=== PATIENT | female | born 1990 | race Caucasian/White ===

== ENCOUNTER → 2016-12-24 | Outpatient (CLI) | payer BC ==
[~2016-12-24] MED LIST: APRI28 PO; CLR10 PO; MONT1TAB3 PO
== END | disposition home or self-care (01) ==
LOC: C.PAPS 09:18
PROVIDERS: ATTEND Obstetrics & Gynecology
DX: Z01.419 Encounter for gynecological examination (general) (routine) without abnormal findings (principal)

== ENCOUNTER 2019-05-12 16:41 | Observation (INO) ==
[2019-05-12 19:54] LABS: Basophils # (auto) 0.02 K/uL (0-0.2); Basophils % (auto) 0.2 %; Eosinophils # (auto) 0.16 K/uL (0-0.5); Eosinophils % (auto) 1.5 %; Hematocrit (blood only) 43.5 % (37-47); Hemoglobin 14.5 g/dL (12.0-16.0); Immature Granulocytes # (auto) 0.01 K/uL (0.00-0.02); Immature Granulocytes % (auto) 0.1 %; Lymphocytes # (auto) 3.14 K/uL (1.2-3.4); Lymphocytes % (auto) 28.6 %; Mean Corpuscular Hemoglobin 26.7 pg (25-34); Mean Corpuscular Hgb Conc 33.3 g/dL (32-36); Mean Corpuscular Volume 80.1 fL (80-100); Mean Platelet Volume 9.9 fL (7.4-10.4); Monocytes # (auto) 0.52 K/uL (0.11-0.59); Monocytes % (auto) 4.7 %; Neutrophils # (auto) 7.14 K/uL (1.4-6.5); Neutrophils % (auto) 64.9 %; Platelet Count 409 K/uL (130-400); RDW Coefficient of Variation 13.9 % (11.5-14.5); RDW Standard Deviation 40.4 fL (36.4-46.3); Red Blood Count 5.43 M/uL (4.2-5.4); White Blood Count 10.99 K/uL (4.8-10.8)
[2019-05-12 20:11] LABS: Alanine Aminotransferase 24 U/L (12-78); Albumin Level 3.4 gm/dl (3.4-5.0); Aspartate Aminotransferase 16 U/L (15-37); BUN Creatinine Ratio 12.3 (10-20); Blood Urea Nitrogen 10 mg/dl (7-18); Calcium 9.8 mg/dl (8.5-10.1); Carbon Dioxide 21 mmol/L (21-32); Chloride 108 mmol/L (98-107); Creatinine Clr Calc Pharmacy 149.5 ml/min; Est GFR (African American) 122.6; Est GFR (Non-African American) 105.8; Glucose 91 mg/dl (70-99); Partial Thromboplastin Ratio 0.9; Partial Thromboplastin Time 25.6 Seconds (21.0-31.0); Potassium 3.6 mmol/L (3.5-5.1); Prothrombin Time 9.8 Seconds (9.0-12.0); Sodium 138 mmol/L (136-145)
[2019-05-12 20:16] LABS: Albumin Globulin Ratio 0.8 (0.9-2); Alkaline Phosphatase 78 U/L (45-117); Bilirubin,Total 0.3 mg/dl (0.2-1); Globulin 4.5 gm/dl (2.5-4.0); Total Protein 7.9 gm/dl (6.4-8.2); Troponin I < 0.015 ng/ml (0-0.045)
[2019-05-12] MEDS ORDERED: OPTIRAY 320 125ml IV PRN (20:34)
--- NOTE | 2019-05-12 20:45 | CT Scan Report ---
CT angio chest PE protocol CT DOSE: 727.62 mGy.cm HISTORY: Chest pain. Dyspnea. Chest Pain, eval for PE TECHNIQUE: Multiaxial CT images of the chest were performed following the intravenous administration of contrast to evaluate the pulmonary arteries. Maximal intensity projection images were also obtaine d. A dose lowering technique was utilized adhering to the principles of ALARA. COMPARISON STUDY: 06/13/2015 FINDINGS: Evidence for pneumomediastinum and pneumopericardium. Small amount of air surrounding the t horacic esophagus. Pulmonary vasculature enhances appropriately. No evidence for pneumothorax or focal infiltrative cadena ge. A moderate amount of air extends to the low cervical region. Pulmonary vasculature enhances appropriately. No significant filling defects. Several calcified granulomas are present. No focal infiltrative process. IMPRESSION: 1. Findings consistent with pneumomediastinum as well as pneumopericardium. 2. Small amount of air surrounding the thoracic esophagus. 3. Lungs are considered clear. 4. No evidence for pulmonary embolus. ACT 112: Negative or not required by law. The above report was generated using voice recognition software. It may contain grammatical, syntax or spelling errors. Electronically signed by: Parker Shine M.D. 05/12/2019 8:44 PM
[2019-05-12] MEDS ORDERED: ONDANSETRON INJ 2 MG/ML 2 ML VIAL IV STA (21:20)
[2019-05-12] MEDS ORDERED: MoRPHine SULFATE 4 MG/ML 1 ML CARP\\VIAL IV STA (21:20)
--- NOTE | 2019-05-12 22:15 | CT Scan Report ---
CT chest wo con CT DOSE: 727.29 mGy.cm HISTORY: Chest pain esophageal tear. Dyspnea. TECHNIQUE: Multiaxial CT images of the chest were performed without contrast. Oral contrast was utili zed. A dose lowering technique was utilized adhering to the principles of ALARA. COMPARISON: CT angiogram of the chest for pulmonary embolus same date FINDINGS: Lungs remain generally clear. Findings of pneumopericardium, pneumomediastinum, air within the paraesophageal region as well as soft tissues of the lower cervical region remains unchanged. The esophagus is now opacified with oral contrast. Transaxial image 277 suggest the possibility of a small anterior tear of the distal esophagus immedia tely proximal to the gastroesophageal junction. Contrast does not form a significant collection surro unding the esophagus or within the pulmonary regions. The remainder of the esophagus appears generall y intact. Calcified left perihilar and left paramediastinal lymph nodes are noted. Calcified mid mediastinal no sanjuanita are unchanged. No additional area of potential wall penetration is present. The low soft tissue cervical region suggests a potential trace amount of contrast within the hypophar ynx on the right which is most likely secondary to a trace amount of leakage and/or trace amount of a spiration. No abnormal contrast collections are identified within the soft tissue neck or superior to mid medias tinal regions. All major structures of the mediastinum as well as pulmonary arterial vasculature shandra ins unchanged. IMPRESSION: 1. Repeat CT of the chest with oral contrast was performed. 2. Possible small short segment disruption of the distal anterior esophageal wall immediately superio r to the gastroesophageal junction. Prior to. This potentially represents a small esophageal wall tea r. The contrast appears loculated at this site with no evidence for extension to any surrounding stru cture. 3. No evidence for a significant extraluminal contrast collection or abscess is present. 4. No evidence for contrast extravasation to any additional component of the low soft tissue neck pedro st or lung regions. ACT 112: Negative or not required by law. The above report was generated using voice recognition software. It may contain grammatical, syntax or spelling errors. Electronically signed by: Parker Shine M.D. 05/12/2019 10:14 PM
[2019-05-12] MEDS ORDERED: PIPERACILLIN/TAZOBACTAM 4.5 GM/120 ML BAG IV ONE (22:24)
[2019-05-12] MEDS ORDERED: PIPERACILL/TAZOBAC CONSULT ACTIVE PRN (22:24)
[2019-05-12] MEDS ORDERED: SODIUM CHLORIDE 0.9% 1000ML 1,000 ML IV SCH (22:30)
[2019-05-12] MEDS ORDERED: LACTATED RINGER'S 1,000 ML IV ONE (22:36)
[2019-05-12] MEDS ORDERED: CONSULT PHARMACY STA (22:40)
[2019-05-12] MEDS ORDERED: PANTOprazole 40 MG in SYRINGE 0 ML IV STA (22:50)
--- NOTE | 2019-05-12 23:00 | History & Physical Report ---
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 CT surgery consult RE esophageal tear, pneumomediastinum (ER provider already in touch with Dr. Rivera.) Continue Zosyn IV PPI DVT prophylaxis. SCDs (RE propensity for UGI bleed) Full code Text document was generated using [employer] voice recognition software. It may contain grammatical or spelling errors. Kindly contact undersigned for clarification of any documentation item in question. History of Present Illness Chief Complaint: Chest pain, S OB Primary Care Provider: Parker Cantu MD History obtained from patient, family, and records. Medical history significant for migraine, allergic rhinitis. This morning patient woke up with pleuritic chest pain going to the neck with some shortness of breath. No cough symptoms. Forceful emesis episode about 5 days ago related to migraine episode. Currently without headaches. Patient directed to ER by PCP. Patient received IV Zosyn at the ER for mediastinitis. 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 Allergies Allergy/AdvReac Type Severity Reaction Status Date / Time No Known Allergies Allergy Verified 05/12/19 19:27 Home Medications Home Medications Medication Instructions Recorded Confirmed Type fluticasone propionate 50 1 sprays INTNAS HS 01/08/19 05/12/19 History mcg/actuation nasal spray,suspension loratadine-pseudoephedrine ER 10 1 tab PO HS 01/08/19 05/12/19 History mg-240 mg tablet,extended [id number] rizatriptan 10 mg tablet 10 mg PO DIRECTED PRN 01/08/19 05/12/19 History desogestrel 0.15 mg-ethinyl 1 tab PO DAILY #84 tab 01/15/19 05/12/19 Rx estradiol 0.03 mg tablet montelukast 10 mg PO HS 05/12/19 05/12/19 History Past Med/Surg History Medical History H/O varicella Migraine without aura Surgical History S/P tooth extraction Family History Aunt Breast cancer, Onset Age: 40 maternal Grandmother (Maternal) Breast cancer, Onset Age: 60 Denies family history of Ovarian cancer Colorectal cancer Social History Feels Safe at Home: Yes Smoking Status: Never smoker Hx Alcohol Use: Yes Alcohol Intake Frequency: Rarely Hx Substance Use: No Review of Systems Review of Systems: As per HPI, all 10 systems reviewed, all other ROS negative Physical Exam Physical Exam: GENERAL: Comfortable, pleasant, obese, no respiratory distress SKIN: Normal color, warm HEENT: [place] palpebral conjunctivae, no ptosis, dry buccal mucosa NECK : Supple, short neck, no tenderness CHEST : CTA, no tenderness HEART : Tachycardic, no obvious murmurs ABDOMEN: Some distention, nontender EXTREMITIES : Minimal LE swelling, no LE tenderness, no other conspicuous deformities noted NEUROLOGIC : Coherent, no facial asymmetry, no other gross focality Results & Data Vital Signs (Past 12 Hours) Vital Signs Temp Pulse Pulse Resp BP BP Pulse Ox 05/12/19 21:35 113 H 18 133/80 98 05/12/19 19:38 108 H 24 97 05/12/19 19:37 110 H 19 128/77 95 05/12/19 19:36 110 H 110 H 18 128/77 96 05/12/19 17:35 36.8 C 117 H 22 141/87 H 100 Laboratory Results Laboratory Results WBC 10.99 K/uL (4.8-10.8) H 05/12/19 19:25 RBC 5.43 M/uL (4.2-5.4) H 05/12/19 19:25 Hgb 14.5 g/dL (12.0-16.0) 05/12/19 19:25 Hct 43.5 % (37-47) 05/12/19 19:25 MCV 80.1 fL (80-100) 05/12/19 19:25 MCH 26.7 pg (25-34) 05/12/19 19:25 MCHC 33.3 g/dL (32-36) 05/12/19 19:25 RDW Std Deviation 40.4 fL (36.4-46.3) 05/12/19 19:25 RDW Coeff of [place] 13.9 % (11.5-14.5) 05/12/19 19: Plt Count 409 K/uL (130-400) H 05/12/19 19:25 MPV 9.9 fL (7.4-10.4) 05/12/19 19:25 Immature Gran % (Auto) 0.1 % 05/12/19 19:25 Neut % (Auto) 64.9 % 05/12/19 19:25 Lymph % (Auto) 28.6 % 05/12/19 19:25 [place] % (Auto) 4.7 % 05/12/19 19: Eos % (Auto) 1.5 % 05/12/19: Baso % (Auto) 0.2 % 05/12/19 19: Immature Gran # (Auto) 0.01 K/uL (0.00-0.02) 05/12/19 19: Neut # (Auto) 7.14 K/uL (1.4-6.5) H 05/12/19 19:25 Lymph # (Auto) 3.14 K/uL (1.2-3.4) 05/12/19 19:25 [place] # (Auto) 0.52 K/uL (0.11-0.59) 05/12/19 19: Eos # (Auto) 0.16 K/uL (0-0.5) 05/12/19 19: Baso # (Auto) 0.02 K/uL (0-0.2) 05/12/19 19:25 PT 9.8 Seconds (9.0-12.0) 05/12/19 19:25 INR 1.0 (0.9-1.1) 05/12/19 19:25 APTT 25.6 Seconds (21.0-31.0) 05/12/19 19: PTT Ratio 0.9 05/12/19 19:25 Sodium 138 mmol/L (136-145) 05/12/19 19:25 Potassium 3.6 mmol/L (3.5-5.1) 05/12/19 19:25 Chloride 108 mmol/L (98-107) H 05/12/19 19:25 Carbon Dioxide 21 mmol/L (21-32) 05/12/19 19:25 Anion Gap 9.0 (3-11) 05/12/19 19:25 BUN 10 mg/dl (7-18) 05/12/19 19:25 Creatinine 0.77 mg/dl (0.6-1.2) 05/12/19 19:25 Est Cr Clr Drug Dosing 149.5 ml/min 05/12/19 19:25 Est GFR ( Amer) 122.6 05/12/19 19:25 Est GFR (Non-Af Amer) 105.8 05/12/19 19:25 BUN/Creatinine Ratio 12.3 (10-20) 05/12/19 19:25 Glucose 91 mg/dl (70-99) 05/12/19 19:25 Calcium 9.8 mg/dl (8.5-10.1) 05/12/19 19:25 Total Bilirubin 0.3 mg/dl (0.2-1) 05/12/19 19:25 AST 16 U/L (15-37) 05/12/19 19:25 ALT 24 U/L (12-78) 05/12/19 19:25 Alkaline Phosphatase 78 U/L (45-117) 05/12/19 19:25 Troponin I < 0.015 ng/ml (0-0.045) 05/12/19 19:25 Total Protein 7.9 gm/dl (6.4-8.2) 05/12/19 19:25 Albumin 3.4 gm/dl (3.4-5.0) 05/12/19 19:25 Globulin 4.5 gm/dl (2.5-4.0) H 05/12/19 19:25 Albumin/Globulin Ratio 0.8 (0.9-2) L 05/12/19 19:25 POC Ur Test NEG (NEG) 05/12/19 19:20 Diagnostic Findings Chest CTA: 1. Findings consistent with pneumomediastinum as well as pneumopericardium. 2. Small amount of air surrounding the thoracic esophagus. 3. Lungs are considered clear. 4. No evidence for pulmonary embolus. CT chest with oral contrast 1. Repeat CT of the chest with oral contrast was performed. 2. Possible small short segment disruption of the distal anterior esophageal wall immediately superior to the gastroesophageal junction. Prior to. This potentially represents a small esophageal wall tear. The contrast appears loculated at this site with no evidence for extension to any surrounding structure. 3. No evidence for a significant extraluminal contrast collection or abscess is present. 4. No evidence for contrast extravasation to any additional component of the low soft tissue neck chest or lung regions. EKG as per my interpretation rate 115, sinus tachycardia, normal axis, no ischemia
--- NOTE | 2019-05-12 23:48 | Emergency Department Note ---
Entered by Andrea Solares acting as a scribe for History of Present Illness General Chief complaint: Chest Pain Stated complaint: WORSENING CHEST & NECK PAIN Time Seen by Provider: 05/12/19 18:56 Source: patient History of Present Illness Onset (ago): hour(s) 10 Location: chest Pain Consistency: + other (worsening) Maximum Pain Intensity: 9 Quality: + sharp Exacerbated By: + movement Associated symptoms: + denies other symptoms (trouble urinating); no cough and no fever/chills The patient is a 28 y/o female who presents to the ED w/ CC of worsening, sharp, chest pain beginning 10 hours ago. The patient states here symptoms suddenly started this morning. She reports she was evaluated by her PCP this morning for piercing chest pain only present when she coughed or breathed deeply. The patient notes throughout the day, her symptoms worsened, and now her symptoms are more persistent. The patient reports her symptoms worsen with movement. She denies shortness of breath, back pain, leg swelling, leg pain, recent long trips, a history of clots in legs or lungs, fevers, cough, chills, and trouble urinating. She does state it is worse when she tries to take a deep breath. The patient is sexually active and denies the chance of . She did have a migraine 4 days ago and did have vomiting at that time. She does not smoke. Home Medications Home Medications Medication Instructions Recorded Confirmed Type fluticasone propionate 50 1 sprays INTNAS HS 01/08/19 05/12/19 History mcg/actuation nasal spray,suspension loratadine-pseudoephedrine ER 10 1 tab PO HS 01/08/19 05/12/19 History mg-240 mg tablet,extended [id number] rizatriptan 10 mg tablet 10 mg PO DIRECTED PRN 01/08/19 05/12/19 History desogestrel 0.15 mg-ethinyl 1 tab PO DAILY #84 tab 01/15/19 05/12/19 Rx estradiol 0.03 mg tablet montelukast 10 mg PO HS 05/12/19 05/12/19 History Allergies Allergy/AdvReac Type Severity Reaction Status Date / Time No Known Allergies Allergy Verified 05/12/19 19:27 Past Med/Surg History Medical History H/O varicella Migraine without aura Surgical History S/P tooth extraction Family History Aunt Breast cancer, Onset Age: 40 maternal Grandmother (Maternal) Breast cancer, Onset Age: 60 Denies family history of Ovarian cancer Colorectal cancer Social History Feels Safe at Home: Yes Smoking Status: Never smoker Hx Alcohol Use: Yes Alcohol Intake Frequency: Rarely Hx Substance Use: No Review of Systems See HPI for pertinent positives & negatives. and A total of 10 systems reviewed and were otherwise negative Physical Exam Vital Signs Vital Signs - 24 hr 05/12/19 17:35 05/12/19 19:36 05/12/19 19:37 Temperature 36.8 C Temperature Source Oral Pulse Rate 117 H 110 H 110 H Pulse Rate [Left Finger] 110 H Pulse Rate from SpO2 Sensor 109 H Pulse Rhythm Regular Pulse Rhythm [Left Finger] Regular Pulse Strength [Left Finger] Normal Respiratory Rate 22 18 19 Respiratory Effort / Characteristics Non-Labored Respiratory Depth Normal Respiratory Pattern Regular Blood Pressure 141/87 H 128/77 Blood Pressure [Right Arm] 128/77 Blood Pressure Mean 105 99 Blood Pressure Mean [Right Arm] 94 Blood Pressure Position Sitting Blood Pressure Position [Right Arm] Sitting Pulse Oximetry 100 96 95 Oxygen Delivery Method Room Air Sepsis Recent Fever Within 48 Hours No Sepsis New/Unexplained Change in Mental Status No Sepsis Action Taken by Nursing No Action Required 05/12/19 19:38 05/12/19 20:00 05/12/19 21:35 Temperature Temperature Source Pulse Rate 108 H 106 H 109 H Pulse Rate [Left Finger] 113 H Pulse Rate from SpO2 Sensor 108 H 106 H 112 H Pulse Rhythm Pulse Rhythm [Left Finger] Regular Pulse Strength [Left Finger] Normal Respiratory Rate 24 18 19 Respiratory Effort / Characteristics Non-Labored Spontaneous Respiratory Depth Normal Respiratory Pattern Regular Blood Pressure 123/74 133/80 Blood Pressure [Right Arm] 133/80 Blood Pressure Mean 83 98 Blood Pressure Mean [Right Arm] 97 Blood Pressure Position Blood Pressure Position [Right Arm] Sitting Pulse Oximetry 97 95 99 Oxygen Delivery Method Room Air Room Air Sepsis Recent Fever Within 48 Hours Sepsis New/Unexplained Change in Mental Status Sepsis Action Taken by Nursing 05/12/19 22:00 05/12/19 23:00 Temperature Temperature Source Pulse Rate 120 H 109 H Pulse Rate [Left Finger] Pulse Rate from SpO2 Sensor 119 H 112 H Pulse Rhythm Pulse Rhythm [Left Finger] Pulse Strength [Left Finger] Respiratory Rate 19 18 Respiratory Effort / Characteristics Respiratory Depth Respiratory Pattern Blood Pressure 127/80 113/77 Blood Pressure [Right Arm] Blood Pressure Mean 95 95 Blood Pressure Mean [Right Arm] Blood Pressure Position Blood Pressure Position [Right Arm] Pulse Oximetry 96 92 Oxygen Delivery Method Room Air Sepsis Recent Fever Within 48 Hours Sepsis New/Unexplained Change in Mental Status Sepsis Action Taken by Nursing Constitutional: Vital signs reviewed. Eyes: Pupils are equal round reactive to light. Conjunctiva are noninjected. ENT: Pharynx is clear without erythema or exudate. Mucous membranes are moist. Neck supple without meningeal signs. Respiratory: Clear to auscultation bilaterally. Breath sounds are equal bilaterally. Cardiovascular: Tachycardic rate of 115 with a normal rhythm. No rubs or gallops. GI: Soft, nondistended and nontender. Bowel sounds are present. Musculoskeletal: No peripheral edema. No lower extremity tenderness. Sternal tenderness to palpation. Integumentary: No cyanosis. Neurological: The patient is awake and alert. No focal deficits. Psychiatric: Normal affect. Course Course 1857: The patient was evaluated in room B11B. A complete history and physical exam was performed. 2103: The patient states she had a migraine on Saturday and vomited. She notes other than that she denies a smoking history. 2110: I discussed the patient's case with Dr. Shine, Radiology. He notes there is no evidence of an esophageal tear or leakage. He states if we have serious concern, the patient can drink oral contrast and repeat the CT. 2117: I discussed the patient's case with Dr. Rivera, Thoracic Surgery. He agrees with the decision to repeat the CT with contrast. 2119: The patient is still tachycardic and is agreeable to the CT. She is requesting pain medication and notes her will pick her up if she is di scharged. 3: Dr. Rivera called and notes that if the patient stays, she should be placed on broad spectrum antibiotics and have him on consult to evaluate the patient tomorrow. He notes if she is discharged, she can follow up as an outpatient on . 2218: I spoke with Dr. Rivera. He does not agree with the radiology read. He recommends the patient be brought in under medicine and be kept NPO. He notes the patient should also received broad spectrum antibiotics. He will evaluate patient tomorrow on consult. 3: Upon reevaluation, the patient is resting comfortably. I discussed laboratory and radiographic results with her. She verbalized agreement of the treatment plan. The patient will be evaluated for further management and care. 2231: I reviewed the patient's case with Dr. Sherwood, [facility]. He will evaluate the patient for further management. Administered Medications Ioversol (Optiray 320 125ml) 119 ml IV ONCE PRN PRN Reason: Interaction Checking Stop: 05/16/19 20:33 Last Admin: 05/12/19 20:34 Dose: 119 ml Documented by: [id number] Discontinued Medications Piperacillin Sod/Tazobactam Sod (Zosyn) 4.5 gm in 120 mls @ 240 mls/hr IV NOW ONE Stop: 05/12/19 22:53 Last Admin: 05/12/19 23:27 Dose: 240 mls/hr Documented by: [id number] Pantoprazole Sodium 40 mg/ (Syringe) 10 mls @ 5 mls/min IV NOW STA Stop: 05/12/19 22:51 Last Admin: 05/12/19 23:28 Dose: 5 mls/min Documented by: [id number] Morphine Sulfate (Morphine Sulfate) 4 mg IV NOW STA Stop: 05/12/19 21:21 Last Admin: 05/12/19 21:29 Dose: 4 mg Documented by: [id number] Ondansetron HCl (Zofran) 4 mg IV NOW STA Stop: 05/12/19 21:21 Last Admin: 05/12/19 21:29 Dose: 4 mg Documented by: [id number] Critical Care Time Critical Care Time: Yes Total Critical Care Time: 40 I have personally spent 40 minutes of critical care time in the direct management of this patient. This includes bedside care, interpretation of diagnostic studies, and testing, discussion with consultants, patient, and family members, and other required patient management activities. This 40 minutes is in excess of all separately billable procedures. Medical Decision Making Differential Diagnosis Differential diagnosis includes: pleurisy, PE, pericarditis, pneumothorax, costochondritis. Medical Records Attestation: I reviewed the patient's medical records. I did perform a limited focused review of portions of the patient's old chart on the electronic medical record. The patient has had no recent pertinent visits to this hospital. Home Medications Current Medication List: was personally reviewed by me Laboratory Data Attestation: I reviewed the patient's lab results. Result diagrams: 05/12/19 19:25 05/12/19 19:25 Lab Results 05/12/19 05/12/19 05/12/19 Range/Units 19:20 19:25 19:25 WBC 10.99 H (4.8-10.8) K/uL RBC 5.43 H (4.2-5.4) M/uL Hgb 14.5 (12.0-16.0) g/dL Hct 43.5 (37-47) % MCV 80.1 (80-100) fL MCH 26.7 (25-34) pg MCHC 33.3 (32-36) g/dL RDW Std Deviation 40.4 (36.4-46.3) fL RDW Coeff of [place] 13.9 (11.5-14.5) % Plt Count 409 H (130-400) K/uL MPV 9.9 (7.4-10.4) fL Immature Gran % (Auto) 0.1 % Neut % (Auto) 64.9 % Lymph % (Auto) 28.6 % [place] % (Auto) 4.7 % Eos % (Auto) 1.5 % Baso % (Auto) 0.2 % Immature Gran # (Auto) 0.01 (0.00-0.02) K/uL Neut # (Auto) 7.14 H (1.4-6.5) K/uL Lymph # (Auto) 3.14 (1.2-3.4) K/uL [place] # (Auto) 0.52 (0.11-0.59) K/uL Eos # (Auto) 0.16 (0-0.5) K/uL Baso # (Auto) 0.02 (0-0.2) K/uL PT 9.8 (9.0-12.0) Seconds INR 1.0 (0.9-1.1) APTT 25.6 (21.0-31.0) Seconds PTT Ratio 0.9 Sodium (136-145) mmol/L Potassium (3.5-5.1) mmol/L Chloride (98-107) mmol/L Carbon Dioxide (21-32) mmol/L Anion Gap (3-11) BUN (7-18) mg/dl Creatinine (0.6-1.2) mg/dl Est Cr Clr Drug Dosing ml/min Est GFR ( Amer) Est GFR (Non-Af Amer) BUN/Creatinine Ratio (10-20) Glucose (70-99) mg/dl Calcium (8.5-10.1) mg/dl Total Bilirubin (0.2-1) mg/dl AST (15-37) U/L ALT (12-78) U/L Alkaline Phosphatase (45-117) U/L Troponin I (0-0.045) ng/ml Total Protein (6.4-8.2) gm/dl Albumin (3.4-5.0) gm/dl Globulin (2.5-4.0) gm/dl Albumin/Globulin Ratio (0.9-2) POC Ur Test NEG (NEG) 05/12/19 Range/Units 19:25 WBC (4.8-10.8) K/uL RBC (4.2-5.4) M/uL Hgb (12.0-16.0) g/dL Hct (37-47) % MCV (80-100) fL MCH (25-34) pg MCHC (32-36) g/dL RDW Std Deviation (36.4-46.3) fL RDW Coeff of [place] (11.5-14.5) % Plt Count (130-400) K/uL MPV (7.4-10.4) fL Immature Gran % (Auto) % Neut % (Auto) % Lymph % (Auto) % [place] % (Auto) % Eos % (Auto) % Baso % (Auto) % Immature Gran # (Auto) (0.00-0.02) K/uL Neut # (Auto) (1.4-6.5) K/uL Lymph # (Auto) (1.2-3.4) K/uL [place] # (Auto) (0.11-0.59) K/uL Eos # (Auto) (0-0.5) K/uL Baso # (Auto) (0-0.2) K/uL PT (9.0-12.0) Seconds INR (0.9-1.1) APTT (21.0-31.0) Seconds PTT Ratio Sodium 138 (136-145) mmol/L Potassium 3.6 (3.5-5.1) mmol/L Chloride 108 H (98-107) mmol/L Carbon Dioxide 21 (21-32) mmol/L Anion Gap 9.0 (3-11) BUN 10 (7-18) mg/dl Creatinine 0.77 (0.6-1.2) mg/dl Est Cr Clr Drug Dosing 149.5 ml/min Est GFR ( Amer) 122.6 Est GFR (Non-Af Amer) 105.8 BUN/Creatinine Ratio 12.3 (10-20) Glucose 91 (70-99) mg/dl Calcium 9.8 (8.5-10.1) mg/dl Total Bilirubin 0.3 (0.2-1) mg/dl AST 16 (15-37) U/L ALT 24 (12-78) U/L Alkaline Phosphatase 78 (45-117) U/L Troponin I < 0.015 (0-0.045) ng/ml Total Protein 7.9 (6.4-8.2) gm/dl Albumin 3.4 (3.4-5.0) gm/dl Globulin 4.5 H (2.5-4.0) gm/dl Albumin/Globulin Ratio 0.8 L (0.9-2) POC Ur Test (NEG) Imaging Data Radiologist's Impression: Radiology results as stated below per my review and the radiologist's interpretation: CT angio chest PE protocol CT DOSE: 727.62 mGy.cm HISTORY: Chest pain. Dyspnea. Chest Pain, eval for PE TECHNIQUE: Multiaxial CT images of the chest were performed following the intravenous administration of contrast to evaluate the pulmonary arteries. Maximal intensity projection images were also obtained. A dose lowering technique was utilized adhering to the principles of ALARA. COMPARISON STUDY: 06/13/2015 FINDINGS: Evidence for pneumomediastinum and pneumopericardium. Small amount of air surrounding the thoracic esophagus. Pulmonary vasculature enhances appropriately. No evidence for pneumothorax or focal infiltrative change. A moderate amount of air extends to the low cervical region. Pulmonary vasculature enhances appropriately. No significant filling defects. Several calcified granulomas are present. No focal infiltrative process. IMPRESSION: 1. Findings consistent with pneumomediastinum as well as pneumopericardium. 2. Small amount of air surrounding the thoracic esophagus. 3. Lungs are considered clear. 4. No evidence for pulmonary embolus. ACT 112: Negative or not required by law. The above report was generated using voice recognition software. It may contain grammatical, syntax or spelling errors. Electronically signed by: Parker Shine M.D. 05/12/2019 8:[address] chest wo con CT DOSE: 727.29 mGy.cm HISTORY: Chest pain esophageal tear. Dyspnea. TECHNIQUE: Multiaxial CT images of the chest were performed without contrast. Oral contrast was utilized. A dose lowering technique was utilized adhering to the principles of ALARA. COMPARISON: CT angiogram of the chest for pulmonary embolus same date FINDINGS: Lungs remain generally clear. Findings of pneumopericardium, pneumomediastinum, air within the paraesophageal region as well as soft tissues of the lower cervical region remains unchanged. The esophagus is now opacified with oral contrast. Transaxial image 277 suggest the possibility of a small anterior tear of the distal esophagus immediately proximal to the gastroesophageal junction. Contrast does not form a significant collection surrounding the esophagus or within the pulmonary regions. The remainder of the esophagus appears generally intact. Calcified left perihilar and left paramediastinal lymph nodes are noted. Calcified mid mediastinal nodes are unchanged. No additional area of potential wall penetration is present. The low soft tissue cervical region suggests a potential trace amount of c ontrast within the hypopharynx on the right which is most likely secondary to a trace amount of leakage and/or trace amount of aspiration. No abnormal contrast collections are identified within the soft tissue neck or superior to mid mediastinal regions. All major structures of the mediastinum as well as pulmonary arterial vasculature remains unchanged. IMPRESSION: 1. Repeat CT of the chest with oral contrast was performed. 2. Possible small short segment disruption of the distal anterior esophageal wall immediately superior to the gastroesophageal junction. Prior to. This potentially represents a small esophageal wall tear. The contrast appears loculated at this site with no evidence for extension to any surrounding structure. 3. No evidence for a significant extraluminal contrast collection or abscess is present. 4. No evidence for contrast extravasation to any additional component of the low soft tissue neck chest or lung regions. ACT 112: Negative or not required by law. The above report was generated using voice recognition software. It may contain grammatical, syntax or spelling errors. Electronically signed by: Parker Shine M.D. 05/12/2019 10:14 PM ECG Data Attestation: I personally reviewed and interpreted this ECG as follows: Indication: + chest pain Rate (beats per minute): 113 Rhythm: + sinus tachycardia ECG ST segments: no ST elevation ECG Findings: + Other (QRS of 76ms); no PVCs Blood Pressure Blood Pressure Findings: Elevated blood pressure Blood Pressure Disposition: Referred to patients primary care provider [facility] Narrative I did evaluate the patient as noted above. The patient is presenting with chest pain starting this morning. It has gotten progressively worse and she is tachycardic on my evaluation. She was concerned about possible pulmonary embolism. She is on control. IV access was established. The patient was placed on a continuous surveillance system monitor. I did order and personally review the patient's 12-lead EKG as described above. Her twelve-lead EKG shows sinus tachycardia without acute ischemia. Urine test is negative. I did order and review the patient's blood work as noted in the electronic medical record. White count was 10.9. Troponin is negative. Electrolytes are unremarkable. I did order a CT angiogram of the chest. I did review the images myself as well as the radiology report as described above. The patient has pneumomediastinum as well as pneumo pericardium. I did reassess the patient. She is persistently tachycardic. Her heart rate went up after I told her the CT findings. She denies smoking but stated that she vomited 4 days ago when she had a migraine. She did not have any chest pain or difficulty with eating after the vomiting. Her symptoms only started this morning. I did treat her with IV morphine and Zofran for pain control. I did talk to Dr. shine of radiology who recommended a CT with oral contrast to look for esophageal perforation. I also talked to Dr. Tamez of thoracic surgery who agreed with my plan. I did order a CT scan with oral contrast of the chest after discussing this further with the patient. This was performed and the reading was concerning for possible esophageal tear near the GE junction. Dr. Ketty Blount did review the scan and felt that a tear was unlikely and if it was present it would be nonoperative. He did recommend broad-spectrum antibiotics and keeping the patient n.p.o. He will see her in the morning. I did treat the patient with Zosyn IV. She was made n.p.o. and started on normal saline IV. I did discuss the test results with the patient and her family. She remains tachycardic but feels better. I did discuss the case with the hospitalist and case monitor. Continuous Cardiac Monitoring: An order was placed for continuous cardiac monitoring due to chest pain and tachycardia. The monitor shows a rate of 108 with sinus tachycardia. Impression & Plan Pneumomediastinum, Pneumopericardium, Esophageal tear, Tachycardia Discharge Plan Visit Data Chief Complaint: Chest Pain Stated Complaint: WORSENING CHEST & NECK PAIN ED Provider: Raghu Mercado Discharge Problem: Pneumomediastinum, Pneumopericardium, Esophageal tear, Tachycardia Patient Disposition: Being Evaluated by Hospitalist Forms Stand Alone Forms: My [facility] Prescriptions Prescriptions: No Action loratadine-pseudoephedrine [Claritin-D 24 Hour] 10-240 mg tablet extended rel ease 24 hr 1 tab PO HS RF: 0 fluticasone propionate 50 mcg/actuation spray,suspension 1 sprays INTNAS HS RF: 0 rizatriptan [Maxalt] 10 mg tablet 10 mg PO DIRECTED PRN (Reason: Migraine Headache) RF: 0 desogestrel-ethinyl estradiol [Apri] 0.15-0.03 mg tablet 1 tab PO DAILY Qty: 84 RF: 4 montelukast 10 mg tablet 10 mg PO HS RF: 0 Referrals Referrals: Parker Cantu MD [Primary Care Provider] - Discharge Problem: Esophageal tear Qualifiers: Encounter type: initial encounter Qualified Code(s): S11.21XA - Laceration without foreign body of pharynx and cervical esophagus, initial encounter The scribe's documentation has been prepared under my direction and personally reviewed by me in its entirety. I confirm that the note above accurately reflects all work, treatment, procedures, and medical decision making performed by me.
[2019-05-13 00:29] LABS: Magnesium 2.1 mg/dl (1.8-2.4)
[2019-05-13] MEDS: MoRPHine SULFATE 4 MG/ML 1 ML CARP\\VIAL IV PRN ×3 (00:44→10:41)
[2019-05-13] MEDS ORDERED: PROMETHAZINE HCL 12.5 MG in SODIUM CHLORIDE 0.9% 50 ML IV PRN (01:52)
[2019-05-13] MEDS ORDERED: ACETAMINOPHEN 1,000 MG/100 ML VIAL IV PRN (01:52)
[2019-05-13] MEDS ORDERED: MoRPHine SULFATE 4 MG/ML 1 ML CARP\\VIAL IV PRN (01:52)
[2019-05-13] MEDS ORDERED: LORazepam 0.5 MG/1 ML VIAL IV PRN (01:52)
[2019-05-13] MEDS: LACTATED RINGER'S 1,000 ML IV SCH ×2 (02:09→14:17)
[2019-05-13] MEDS: PIPERACILLIN/TAZOBACTAM 4.5 GM in DEXTROSE 5% 100 ML IV SCH ×3 (06:32→21:59)
[2019-05-13] MEDS: PANTOprazole 40 MG in SYRINGE 0 ML IV SCH ×2 (09:37→20:07)
[2019-05-13] MEDS ORDERED: SUMAtriptan succinate 6 MG/0.5 ML VIAL SQ ONE (10:15)
--- NOTE | 2019-05-13 11:02 | Hospitalist Progress Note ---
Date of Service May 13, 2019 Assessment & Plan (1) Pneumomediastinum: Presents with sudden onset of sharp/stabbing chest pain, worsening with deep breath CT chest with IV contrast: 1. Findings consistent with pneumomediastinum as well as pneumopericardium. 2. Small amount of air surrounding the thoracic esophagus. 3. Lungs are considered clear. CT surgery consulted, appreciate input Ordered for chest x-ray PA and lateral view Patient does not show any evidence of respiratory distress, in room air vital stable Echo transthoracic ordered to assess for pneumopericardium (2) Pneumopericardium: (3) Esophageal tear: Presented with sudden onset of sharp/stabbing chest pain, worsening with deep breath CT chest: With p.o. contrast: - Possible small short segment disruption of the distal anterior esophageal wall immediately superior to the gastroesophageal junction. Prior to. This potentially represents a small esophageal wall tear. The contrast appears loculated at this site with no evidence for extension to any surrounding structure. - No evidence for a significant extraluminal contrast collection or abscess is present. - No evidence for contrast extravasation to any additional component of the low soft tissue neck chest or lung regions. Patient reports of having one episode of vomiting approximately 4 days back, secondary to acute migraine attack Next did not had any pain or discomfort right after that Patient is ordered strict n.p.o. Empiric antibiotic with IV Zosyn -For concern of esophagitis/mediastinitis Patient is continue with IV PPI 40 mg twice daily GI evaluation requested (4) Migraine without aura: No complaint of photophobia, no aura, no nausea, : Home medication kept on hold for n.p.o. status Subcu sumatriptan is an option, patient refused to have that as headache prior adverse reaction/confusion with sumatriptan Got IV Tylenol this morning, has not helped with her headache Has been getting PRN IV morphine for chest pain, patient reports helping with her pain syndrome, Continue PRN IV morphine as needed CODE STATUS: Full code DVT prophylaxis: Subcu Lovenox disposition: Continue monitoring telemetry Expected to be discharged home when medically stable Admission and Anticipated Discharge Date Admission Date: May 12, 2019 Subjective Patient complains of intermittent sharp stabbing pain, and epigastric midsternal area Worse with taking deep breath, Does not have any cough, no fever or chills No complaint of nausea/vomiting or abdominal pain Developed migraine headache on left side (chronic Denies of any visual discomfort, loud noise bothering her, No nausea Review of Systems Review of Systems: All systems reviewed & are unremarkable except as noted in HPI & below Constitutional: + problem reported (Sharp stabbing substernal chest pain,); no fever and no chills Eyes: as per Subjective / HPI; no blind spots, no diplopia, no photophobia, not seeing flashes and no problem reported Ear, Nose, Mouth, Throat: no ear pain, no tinnitus and no dizziness Respiratory: + pain with cough; no cough, no dyspnea, no dyspnea on exertion a nd no sputum production Cardiovascular: + chest pain (Sharp substernal chest pain, worse with taking deep breath, no radiation); no orthopnea, no palpitations, no lightheadedness, no syncope and no edema Gastrointestinal: no abdominal pain, no nausea and no vomiting Neurologic: + problem reported (Headache left-sided chronic migraine attack) Psychiatric: no anxiety Physical Exam Constitutional: WD/WN, vitals as above no acute distress Eyes: PERRL, conjunctivae normal, anicteric sclerae ENMT: external ear and nose normal, oropharynx normal Neck: trachea midline, no thyromegaly Respiratory: normal respiratory effort, lungs clear to auscultation Cardiovascular: Rate/Rhythm: regular rate and regular rhythm Gastrointestinal (Abdomen): normal bowel sounds, soft, nontender, no hepatosplenomegaly Musculoskeletal: Head/Neck/Chest: + abnormal palpation of chest wall (Epigastric/midsternal chest wall tenderness on palpation) Skin: no rashes, warm and dry Neurologic: patellar DTR's 2+ bilat, sensation intact Psychiatric: A+Ox3, euthymic affect Results & Data ([facility]) Vital Signs (Past 12 Hours) Vital Signs Temp Pulse Pulse Resp BP BP BP 05/13/19 07:25 82 05/13/19 06:02 80 05/13/19 05:43 36.6 C 83 16 127/82 05/13/19 05:03 36.4 C L 102 H 18 114/67 05/13/19 01:51 36.5 C 91 H 16 139/61 05/13/19 01:00 89 19 142/89 H 05/13/19 00:23 78 20 116/73 05/12/19 23:50 109 H 23 05/12/19 23:00 109 H 18 113/77 Pulse Ox 05/13/19 07:25 05/13/19 06:02 05/13/19 05:43 94 05/13/19 05:03 96 05/13/19 01:51 96 05/13/19 01:00 94 05/13/19 00:23 99 05/12/19 23:50 96 05/12/19 23:00 92 (1) Esophageal tear Encounter type: initial encounter Qualified Code(s): S11.21XA - Laceration without foreign body of pharynx and cervical esophagus, initial encounter
--- NOTE | 2019-05-13 11:55 | XRay Report ---
XR chest 2V PA/lateral CLINICAL HISTORY: 28 years-old Female presenting with pneumomediastinum. TECHNIQUE: PA and lateral views of the chest were obtained. COMPARISON: Chest CT from 05/12/2019. FINDINGS: Pneumomediastinum noted most prominently along the left heart border and into the base of the neck. T his is similar to recent CT. Cardiomediastinal silhouette otherwise normal. Several overlying externa l leads project over the lower mediastinum and epigastrium. Lungs and pleural spaces clear. Osseous s tructures normal. Upper abdomen normal. IMPRESSION: 1. Pneumomediastinum unchanged. No change from chest CT performed yesterday. ACT 112: Negative or not required by law. Electronically signed by: Arden Lorenzo M.D. 05/13/2019 11:54 AM
--- NOTE | 2019-05-13 12:16 | Gastrointestinal Consultation ---
Date of Consultation May 13, 2019 Assessment & Plan (1) Esophageal tear: 's aggressive vomiting and CT with pneumomediastinum, then repeat with oral contrast suggesting a small tear w/o extravasation is diagnostic of having had a recent esophageal tear. Would defer management of esophageal tear to thoracic surgery. Certainly, would keep strict NPO. Would advise against endoscopy at this time as may worse the tear. She does have some symptoms suggestive of esophagitis, possibly eosinophilic esophagitis and hx of allergies as well, so she may benefit from eventual colonoscopy but would not schedule for at least 2 months and would see as an OP in GI prior to scheduling. Agree with antibiotics and IV PPI which may improve healing. Present on Admission?: Yes Supervising Physician Co-Signing Physician Notes I have seen and examined the patient with MICAELA Tavarez whose note reflects our findings and plan. Patient developed severe chest pain after violent coughing episode 1-2 days earlier. Imaging x 2 showing esophageal tear. No fever. On IV abx. Patient should be followed closely by CT surgery. NPO. No role for a diagnostic EGD. Esophageal stenting in the right clinical scenario has been done. History of Present Illness Reason for Consultation: esophageal tear Requesting Physician: Dr. Echavarria Attending Physician: Shireen Echavarria MD History of Present Illness Ms. Elizabeth Hickman is a 28 yr old female pt of Dr. Cantu with a hx of allergies and migraines who experienced a migraine on 05/08 and during that migraine, she vomited aggressively about 5 times. She did not have further symptoms until she awakened yesterday morning with chest pain. Pain is constant, worse with coughing or deep breathing. She presen karl to the ED last night for this pain. She denies any fevers, chills sweats. She does have some nausea that she believes is related to a headache but has not had further vomiting since 05/07. When asked about esophageal symptoms at baseline, she reports that about twice weekly, after eating certain foods, she feels like there is "phlegm" in her chest triggering a cough which is sometimes a bit aggressively. She also reports very rare, mild reflux symptoms. She has never previously undergone endoscopy. On arrival, CTA with pneumomediastinum and suggestion of esophageal tear. GI is consulted for esophageal tear. Thoracic surgery is already onboard. The pt tells me that an x-ray is being done to verify the torn esophagus prior to considering surgery. Allergies Allergy/AdvReac Type Severity Reaction Status Date / Time sumatriptan [From Imitrex] AdvReac Confusion Verified 05/13/19 10:22 Home Medications Home Medications Medication Instructions Recorded Confirmed Type fluticasone propionate 50 1 sprays INTNAS HS 01/08/19 05/12/19 History mcg/actuation nasal spray,suspension loratadine-pseudoephedrine ER 10 1 tab PO HS 01/08/19 05/12/19 History mg-240 mg tablet,extended [id number] rizatriptan 10 mg tablet 10 mg PO DIRECTED PRN 01/08/19 05/12/19 History desogestrel 0.15 mg-ethinyl 1 tab PO DAILY #84 tab 01/15/19 05/12/19 Rx estradiol 0.03 mg tablet montelukast 10 mg PO HS 05/12/19 05/12/19 History Patient History Medical History H/O varicella Migraine without aura Surgical History S/P tooth extraction Family History Aunt Breast cancer, Onset Age: 40 maternal Grandmother (Maternal) Breast cancer, Onset Age: 60 Denies family history of Ovarian cancer Colorectal cancer Social History Preferred Language: Yoruba Communication Ability: Effective Coke Worker Required: No Beliefs That Will Affect Care: None Current Living Situation: Spouse Feels Safe at Home: Yes Smoking Status: Never smoker Hx Alcohol Use: No Hx Substance Use: No Review of Systems Review of Systems: ROS: Gen: Denies weakness, fevers, weight loss Eyes: No eye redness, or pain, no recent vision changes Resp: + cough about twice /week with swallowing. Currently no SOB, but does have increased pain with deep breaths. Cardio: No palpitations/irregular beats, no chest pain GI: See HPI : Denies pain on urination Skin: No jaundice, itching or new rashes Physical Exam Constitutional: WD/WN, vitals as above Eyes: PERRL, conjunctivae normal, anicteric sclerae ENMT: external ear and nose normal, oropharynx normal Neck: trachea midline, no thyromegaly Respiratory: normal respiratory effort, lungs clear to auscultation Cardiovascular: RRR, no murmur, no edema Gastrointestinal (Abdomen): normal bowel sounds, soft, nontender, no hepatosplenomegaly Musculoskeletal: no cyanosis or clubbing, extremities motor strength 5/5 Skin: no rashes, warm and dry Neurologic: patellar DTR's 2+ bilat, sensation intact Psychiatric: A+Ox3, euthymic affect Lymphatic: no cervical or axillary lymphadenopathy Results & Data ([facility]) Vital Signs (Past 12 Hours) Vital Signs Temp Pulse Pulse Resp BP BP BP 05/13/19 11:48 36.5 C 80 20 128/80 05/13/19 07:25 82 05/13/19 06:02 80 05/13/19 05:43 36.6 C 83 16 127/82 05/13/19 05:03 36.4 C L 102 H 18 114/67 05/13/19 01:51 36.5 C 91 H 16 139/61 05/13/19 01:00 89 19 142/89 H 05/13/19 00:23 78 20 116/73 Pulse Ox 05/13/19 11:48 94 05/13/19 07:25 05/13/19 06:02 05/13/19 05:43 94 05/13/19 05:03 96 05/13/19 01:51 96 05/13/19 01:00 94 05/13/19 00:23 99 Laboratory Results Wbc 11->10, hB 14, hCT 43, platelets 409, Na 138, K 3.6, BUN 10, Cr 0.77, platelets 91. Diagnostic Findings CTA chest 05/12/19: 1. Findings consistent with pneumomediastinum as well as pneumopericardium. 2. Small amount of air surrounding the thoracic esophagus. 3. Lungs are considered clear. 4. No evidence for pulmonary embolus. CT with oral contrast: 1. Repeat CT of the chest with oral contrast was performed. 2. Possible small short segment disruption of the distal anterior esophageal wall immediately superior to the gastroesophageal junction. Prior to. This potentially represents a small esophageal wall tear. The contrast appears loculated at this site with no evidence for extension to any surrounding structure. 3. No evidence for a significant extraluminal contrast collection or abscess is present. 4. No evidence for contrast extravasation to any additional component of the low soft tissue neck chest or lung regions. CXR 05/12/18: 1. Pneumomediastinum unchanged. No change from chest CT performed yesterday. (1) Esophageal tear Encounter type: initial encounter Qualified Code(s): S11.21XA - Laceration without foreign body of pharynx and cervical esophagus, initial encounter
--- NOTE | 2019-05-13 15:50 | Electrocardiogram Report ---
Test Reason : Blood Pressure : / mmHG Vent. Rate : 113 BPM Atrial Rate : 113 BPM P-R Int : 134 ms QRS Dur : 076 ms QT Int : 336 ms P-R-T Axes : 055 010 063 degrees QTc Int : 460 ms Poor data quality, interpretation may be adversely affected Sinus tachycardia Otherwise normal ECG No previous ECGs available Confirmed by Griffin Graves ([id number]) on 05/13/2019 3:50:03 PM Referred By: REFERRED SELF Confirmed By:Griffin Graves
[2019-05-13] MEDS ORDERED: LACTATED RINGER'S 1,000 ML IV SCH (16:15)
--- NOTE | 2019-05-13 16:34 | Surgery Consultation ---
Date of Consultation May 13, 2019 Assessment & Plan (1) Pneumomediastinum: This patient has a benign pneumomediastinum. In my opinion she does not have an esophageal tear nor does she have a pneumopericardium. Her echocardiogram was fine. Her chest x-ray showed no change. I would allow this patient to eat and I would discharge her. Whether she goes home on antibiotics I will leave up to the primary service however I personally would not put her on antibiotics. I would simply have her return to the ER if she runs into problems. Otherwise I can see her in my office the week of May 24. Present on Admission?: Yes History of Present Illness Attending Physician: Shireen Echavarria MD History of Present Illness This is a obese but otherwise healthy 28-year-old female with signs and symptoms of esophagitis and migraine headaches, did a few days ago. She last vomited about 4 days prior to admission. Patient went to see her primary care physician but her symptoms persisted and she had pain with swallowing in her throat and also in her mid sternum. She presented back to the emergency room where a CT scan was obtained with contrast to rule out a pulmonary embolism and she was found to have a pneumomediastinum. She underwent a repeat CT scan with oral contrast. There were 2 questions that were raised by the radiology interpretation. 1 was that the patient had a pneumopericardium. The other was that she had a possible esophageal tear. I do not believe this patient has either. I do not think she has a pneumopericardium which would be quite unusual. In addition, I do not believe that the single cuts that we see represent a tear. Would be very unusual for the patient to have a normal white count and no fever and no tachycardia if she had a mediastinitis from an esophageal tear. It would not be subtle. In addition most of the air in her mediastinum is actually in her pharyngeal area. She feels much better today. She is also quite hungry. Allergies Allergy/AdvReac Type Severity Reaction Status Date / Time sumatriptan [From Imitrex] AdvReac Confusion Verified 05/13/19 10:22 Home Medications Home Medications Medication Instructions Recorded Confirmed Type fluticasone propionate 50 1 sprays INTNAS HS 01/08/19 05/12/19 History mcg/actuation nasal spray,suspension loratadine-pseudoephedrine ER 10 1 tab PO HS 01/08/19 05/12/19 History mg-240 mg tablet,extended [id number] rizatriptan 10 mg tablet 10 mg PO DIRECTED PRN 01/08/19 05/12/19 History desogestrel 0.15 mg-ethinyl 1 tab PO DAILY #84 tab 01/15/19 05/12/19 Rx estradiol 0.03 mg tablet montelukast 10 mg PO HS 05/12/19 05/12/19 History Patient History Medical History H/O varicella Migraine without aura Surgical History S/P tooth extraction Family History Aunt Breast cancer, Onset Age: 40 maternal Grandmother (Maternal) Breast cancer, Onset Age: 60 Denies family history of Ovarian cancer Colorectal cancer Social History Preferred Language: Ethiopian Communication Ability: Effective Culinary Worker Required: No Beliefs That Will Affect Care: None Current Living Situation: Spouse Feels Safe at Home: Yes Smoking Status: Never smoker Hx Alcohol Use: No Hx Substance Use: No Review of Systems Review of Systems: All systems reviewed & are unremarkable except as noted in HPI & below Physical Exam Physical Exam: Is a delightful 28-year-old female appears her stated age. She was sleeping comfortably when I awakened her. This is a 5 foot 7 notes approximately 240 pound female who is awake alert and oriented. She wears glasses. Extraocular's are intact. Sclera anicteric. Her neck is supple. I do not detect subcutaneous emphysema. She has no carotid bruits. She has no lymphadenopathy. Her lungs are clear. She does not have a Diana's crunch upon auscultation of her heart and she has a regular rate and rhythm of her heart. Her abdomen is soft and nontender. Her extremities are without edema. She has excellent peripheral pulses. Her extremities are warm and dry. She has no joint effusions. She has no focal deficits neurologically. She is awake alert and conversant. Results & Data Vital Signs (Past 12 Hours) Vital Signs Temp Pulse Pulse Resp BP Pulse Ox 05/13/19 15:11 79 05/13/19 11:48 36.5 C 80 20 128/80 94 05/13/19 07:25 82 05/13/19 06:02 80 05/13/19 05:43 36.6 C 83 16 127/82 94 05/13/19 05:03 36.4 C L 102 H 18 114/67 96 PG Care Time/CCT Total # of Minutes Spent Total Time Spent with Patient: Total time spent is greater than 50% in coordination of care (as documented) at patient's floor/unit and/or counseling patient: Coding Level of Care Code 91372 Inpt Consult Level 4 Diagnoses Pneumomediastinum J98.2
[2019-05-13] MEDS: D5W AND NSS 1,000 ML IV SCH (16:57)
[2019-05-13] MEDS ORDERED: FLUTICASONE PROPIONATE NA SPR 16 GM BTL SCH (21:00)
[2019-05-14] MEDS ORDERED: TRAMADOL HCL 50 MG TABLET PO STA ×2 (02:00→08:40)
[2019-05-14] MEDS: D5W AND NSS 1,000 ML IV SCH (02:12)
[2019-05-14] MEDS: PIPERACILLIN/TAZOBACTAM 4.5 GM in DEXTROSE 5% 100 ML IV SCH (05:37)
[2019-05-14 06:29] LABS: Hematocrit (blood only) 40.9 % (37-47); Hemoglobin 13.3 g/dL (12.0-16.0); Mean Corpuscular Hemoglobin 26.5 pg (25-34); Mean Corpuscular Hgb Conc 32.5 g/dL (32-36); Mean Corpuscular Volume 81.5 fL (80-100); Platelet Count 376 K/uL (130-400); RDW Coefficient of Variation 13.7 % (11.5-14.5); RDW Standard Deviation 40.8 fL (36.4-46.3); Red Blood Count 5.02 M/uL (4.2-5.4); White Blood Count 4.96 K/uL (4.8-10.8)
--- NOTE | 2019-05-14 07:29 | XRay Report ---
XR chest 1V portable CLINICAL HISTORY: 28 years-old Female presenting with pneumomediastinum. TECHNIQUE: Portable upright AP view of the chest was obtained. COMPARISON: 05/13/2019. FINDINGS: Pneumomediastinum again noted along the left heart border, stable to slightly decreased from prior. C ardiac silhouette normal in size. No focal opacity. No large effusion or pneumothorax. Osseous struct ures normal. Upper abdomen normal. IMPRESSION: 1. Stable slight decrease in pneumomediastinum. ACT 112: Negative or not required by law. Electronically signed by: Arden Lorenzo M.D. 05/14/2019 7:28 AM
[2019-05-14] MEDS: PANTOprazole 40 MG in SYRINGE 0 ML IV SCH (08:25)
--- NOTE | 2019-05-14 09:12 | Progress Notes ---
DATE: 05/14/2019 Elizabeth was seen today. She is eating house diet without difficulty. Her pain is improved. She is afebrile. Her saturations are 96% on room air. At this point, I am quite pleased with the patient. Her white count today is 4960. She had an x-ray performed this morning, which shows if anything a decrease in her pneumomediastinum. ASSESSMENT AND PLAN: Benign pneumomediastinum. This patient may be discharged. My office will contact her and we will see her back in 2 weeks with a chest x-ray.
--- NOTE | 2019-05-14 10:05 | Hospitalist Progress Note ---
Date of Service May 14, 2019 Assessment & Plan (1) Pneumomediastinum: Presents with sudden onset of sharp/stabbing chest pain, worsening with deep breath CT chest with IV contrast: 1. Findings consistent with pneumomediastinum as well as pneumopericardium. 2. Small amount of air surrounding the thoracic esophagus. 3. Lungs are considered clear. CT surgery consulted, appreciate input chest x-ray PA and lateral view shows unchanged pneumothroax Patient does not show any evidence of respiratory distress, in room air vital stable per CT surgery Dr Tuttle -incidental finding of penumothorax-possible due to benign etiology does not believe pt had true eosphageal perforation diet advanced , tolerating well no fever or chills no chest pain or discomfort with meals Echo transthoracic shows minimum pneumopericardium/no evidence of tamponade stable to be discharged home today follow up with CT surgery in 2 -3 weeks /repeat CXray at the clinic visit (2) Pneumopericardium: (3) Esophageal tear: Presented with sudden onset of sharp/stabbing chest pain, worsening with deep breath CT chest: With p.o. contrast: - Possible small short segment disruption of the distal anterior esophageal wall immediately superior to the gastroesophageal junction. Prior to. This potentially represents a small esophageal wall tear. The contrast appears loculated at this site with no evidence for extension to any surrounding structure. - No evidence for a significant extraluminal contrast collection or abscess is present. - No evidence for contrast extravasation to any additional component of the low soft tissue neck chest or lung regions. Patient reports of having one episode of vomiting approximately 4 days back, secondary to acute migraine attack Next did not had any pain or discomfort right after that Appreciate input from GI and cardiothoracic surgeon: Per Dr. Nielsen, CT finding appears to be benign, patient's clinical picture does not suggest esophageal perforation Recommends to advance diet, Outpatient follow-up with CT surgery in 2 weeks with repeat chest x-ray Diet advanced patient has tolerated well, no discomfort with meals Appreciate input from GI, recommends outpatient EGD in 2-3 months for further evaluation Patient is discharged home today with p.o. omeprazole (4) Migraine without aura: Symptom has resolved today CODE STATUS: Full code DVT prophylaxis: Subcu Lovenox Disposition:Stable to be discharged home today Admission and Anticipated Discharge Date Admission Date: May 12, 2019 Subjective Had an uneventful night, feels fine this morning Denies of any shortness of breath, vitals stable, no tachycardia Patient remains in room air Tolerated her dinner yesterday, finished breakfast, with no discomfort no worsening of chest pain, no swallowing difficulty Evaluated by CT surgery Dr. Nielsen , Stable to be discharged home today Physical Exam Constitutional: WD/WN, vitals as above no acute distress Eyes: PERRL, conjunctivae normal, anicteric sclerae ENMT: external ear and nose normal, oropharynx normal Neck: trachea midline, no thyromegaly Respiratory: normal respiratory effort, lungs clear to auscultation Cardiovascular: Rate/Rhythm: regular rate and regular rhythm Gastrointestinal (Abdomen): normal bowel sounds, soft, nontender, no hepatosplenomegaly Musculoskeletal: Head/Neck/Chest: + abnormal palpation of chest wall (Epigastric/midsternal chest wall tenderness on palpation) Skin: no rashes, warm and dry Neurologic: patellar DTR's 2+ bilat, sensation intact Psychiatric: A+Ox3, euthymic affect Results & Data ([facility]) Vital Signs (Past 12 Hours) Vital Signs Temp Pulse Pulse Resp BP Pulse Ox 05/14/19 07:35 79 05/14/19 06:37 36.8 C 94 H 18 116/74 96 05/14/19 03:10 36.8 C 95 H 18 131/75 95 05/13/19 23:59 90 05/13/19 23:10 36.8 C 82 17 103/66 93 (1) Esophageal tear Encounter type: initial encounter Qualified Code(s): S11.21XA - Laceration without foreign body of pharynx and cervical esophagus, initial encounter
--- NOTE | 2019-05-14 23:44 | Discharge Summary ---
Date of Service May 14, 2019 Admission HPI Per Admitting Provider History obtained from patient, family, and records. Medical history significant for migraine, allergic rhinitis. This morning patient woke up with pleuritic chest pain going to the neck with some shortness of breath. No cough symptoms. Forceful emesis episode about 5 days ago related to migraine episode. Currently without headaches. Patient directed to ER by PCP. Patient received IV Zosyn at the ER for mediastinitis. 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 Principal Diagnosis Chest pain Pneumo mediastinum: Air in chest cavity-Benign finding Discharge Exam Constitutional WD/WN, vitals as above no acute distress Eyes PERRL, conjunctivae normal, anicteric sclerae ENMT external ear and nose normal, oropharynx normal Neck trachea midline, no thyromegaly Respiratory normal respiratory effort, lungs clear to auscultation Cardiovascular Rate/Rhythm: regular rate and regular rhythm Gastrointestinal (Abdomen) normal bowel sounds, soft, nontender, no hepatosplenomegaly Musculoskeletal Head/Neck/Chest: + abnormal palpation of chest wall (Epigastric/midsternal chest wall tenderness on palpation) Skin no rashes, warm and dry Neurologic patellar DTR's 2+ bilat, sensation intact Psychiatric A+Ox3, euthymic affect Discharge Data Allergies Allergy/AdvReac Type Severity Reaction Status Date / Time sumatriptan [From Imitrex] AdvReac Confusion Verified 05/13/19 10:22 Consultations 05/12/19 22:24 Consult Thoracic Surgery Stat ED Decision to Admit Stat 05/13/19 10:49 Consult Gastroenterology Routine Ordered Studies 05/12/19 19:03 CT angio chest PE protocol Stat 05/12/19 21:14 CT chest wo con Stat Hospital Course (1) Pneumomediastinum: Presents with sudden onset of sharp/stabbing chest pain, worsening with deep breath CT chest with IV contrast: 1. Findings consistent with pneumomediastinum as well as pneumopericardium. 2. Small amount of air surrounding the thoracic esophagus. 3. Lungs are considered clear. CT surgery consulted, appreciate input chest x-ray PA and lateral view shows unchanged pneumothroax Patient does not show any evidence of respiratory distress, in room air vital stable per CT surgery Dr Tuttle -incidental finding of penumothorax-possible due to benign etiology does not believe pt had true eosphageal perforation diet advanced , tolerating well no fever or chills no chest pain or discomfort with meals Echo transthoracic shows minimum pneumopericardium/no evidence of tamponade stable to be discharged home today follow up with CT surgery in 2 -3 weeks /repeat CXray at the clinic visit (2) Pneumopericardium: (3) Esophageal tear: Presented with sudden onset of sharp/stabbing chest pain, worsening with deep breath CT chest: With p.o. contrast: - Possible small short segment disruption of the distal anterior esophageal wall immediately superior to the gastroesophageal junction. Prior to. This potentially represents a small esophageal wall tear. The contrast appears loculated at this site with no evidence for extension to any surrounding structure. - No evidence for a significant extraluminal contrast collection or abscess is present. - No evidence for contrast extravasation to any additional component of the low soft tissue neck chest or lung regions. Patient reports of having one episode of vomiting approximately 4 days back, secondary to acute migraine attack Next did not had any pain or discomfort right after that Appreciate input from GI and cardiothoracic surgeon: Per Dr. Nielsen, CT finding appears to be benign, patient's clinical picture does not suggest esophageal perforation Recommends to advance diet, Outpatient follow-up with CT surgery in 2 weeks with repeat chest x-ray Diet advanced patient has tolerated well, no discomfort with meals Appreciate input from GI, recommends outpatient EGD in 2-3 months for further evaluation Patient is discharged home today with p.o. omeprazole (4) Migraine without aura: Symptom has resolved today CODE STATUS: Full code DVT prophylaxis: Subcu Lovenox Disposition:Stable to be discharged home today Total Time Total Time Spent Total Time Spent (In Minutes): 35 mins Total Time Includes: Examination of the Patient, Discharge Planning and Medication Reconciliation Discharge Plan Discharge Items Patient Disposition: Home - Self-Care Reason For Visit: MEDIASTINITIS, TACHYCARDIA Discharge Diagnosis: Chest pain Pneumo mediastinum: Air in chest cavity-Benign finding Activity: Resume your previous activity Non-emergency contact: Primary Care Provider Call non-emergency contact if: you have any medication questions, your symptoms worsen and your pain is worsening Follow-up/Referrals: Jayden Krishnamurthy [Nurse Practitioner] - (Follow-up with gastroenterology in 2-3 months, please call office to schedule an appointment) Rony Rivera MD, FACS [Surgeon] - (PHYSICIAN'S OFFICE WILL CALL TO SCHEDULE) Parker Cantu MD [Primary Care Provider] - 05/19/19 2:55 pm (PLEASE CALL EITHER [phone] OR [phone] IF YOU NEED TO RESCHEDULE THIS APPOINTMENT) Diet: Regular Addtl Attending Provider Instructions: Please take Tylenol as needed for pain, Can utilize tramadol as needed for severe pain not relieved with Tylenol Do not drive after taking tramadol Do not take aspirin, Aleve, Advil Motrin, ibuprofen, naproxen-this is a group of [id number] pain medication drugs that can cause severe acid reflux causing more damage/inflammation to your esophagus/food pipe Follow-up with gastroenterology in 2-3 months for surveillance EGD/ Endoscopic evaluation of esophagus and stomach Follow-up with cardiothoracic surgeon Dr. Nielsen -in 2-3 weeks Pending Studies at Discharge: No Stand-Alone Forms: My [facility] [employer], Work/School Release (Inpt), Smoking Cessation Medications and DC Order Prescriptions: New omeprazole 20 mg capsule,delayed release(DR/EC) 20 mg PO DAILY 42 Days Qty: 42 RF: 0 tramadol 50 mg tablet 50 mg PO Q8H PRN (Reason: pain) Qty: 10 RF: 0 Continued loratadine-pseudoephedrine [Claritin-D 24 Hour] 10-240 mg tablet extended release 24 hr 1 tab PO HS RF: 0 fluticasone propionate 50 mcg/actuation spray,suspension 1 sprays INTNAS HS RF: 0 rizatriptan [Maxalt] 10 mg tablet 10 mg PO DIRECTED PRN (Reason: Migraine Headache) RF: 0 desogestrel-ethinyl estradiol [Apri] 0.15-0.03 mg tablet 1 tab PO DAILY Qty: 84 RF: 4 montelukast 10 mg tablet 10 mg PO HS RF: 0 Discharge Orders: Discharge Order (Routine); Ordered 05/14/19 Ordered By: Shireen Echavarria Admission Data Admit Date/Time: 05/12/19 23:09 Attending Provider: Shireen Echavarria Admit Provider: Rony Sherwood Primary Care Provider: Parker Cantu Other Providers: Rony Sherwood ; Rony Rivera ; Jayden Krishnamurthy ; Tatum Hernandez ; Keshia Leavitt ; Amada Martinez ; Jaguar Black ; Arjun Rosales ; Marcus Queen ; Lenora Lema ; Griffin Crowell ; Herve Araujo ; Aminah Escoto ; Leslie Hirsch ; Opal Zuñiga ; Lidya Cabrera ; Na Arreguin Other Interventions: Discharge Summary Assessment (RN) Last Done: 05/14/19 10:15 DC Date/Time DO NOT enter until pt leaves facility: 05/14/19 10:41
== END 2019-05-14 10:41 | disposition home or self-care (01) ==
LOC: ED 16:41 → INTOOBSV 23:09 → EDINP 23:09 → 2N 05-13 05:27

== ENCOUNTER 2023-06-05 07:36 | Inpatient (IN) ==
--- NOTE | 2023-06-05 07:43 | History & Physical Report ---
Date of Service June 05, 2023 Assessment & Plan (1) Encounter for induction of labor: (2) Need for rhogam due to Rh negative mother: (3) resulting from in vitro fertilization, antepartum: (4) Obesity: Plan Will admit patient to L&D for IOL Elevated BP yesterday, and this am BP elevated again with systolic in the 180s. Protein:Creatinine ration was 0.2 yesterday Fetus cat 1 GBS positive; will treat intrapartum with Penicillin Rh negative; may need Rhogam after delivery Rubella immune EFW 83% (US from 05/17/23) Geronimo balloon already fell out around midnight this morning Pitocin as needed Epidural prn Patient in agreement. Admission and Anticipated Discharge Date Admission Date: June 05, 2023 History of Present Illness Chief Complaint: IOL Primary Care Provider: Parker Cantu MD Elizabeth is a 32 y/o female with PMHx of PCOS, Migraines, and Obesity who is currently at IUP 39 2/7 WGA with an RAYMOND 06/11/23 as determined by US who is here for IOL. Her was a result of IVF/ICSI, and so this in combination with patient's history of obesity, [employer] was recommending delivery by 39 wga. Patient had a Geronimo balloon placed yesterday, which fell out at 12-1am this morning. (+) movement (-) contractions (-) fluid loss (-) bloody show External FHT and external uterine monitors used * Category 1 tracing * Moderate FHT variability. Had regular appointments since 1st trimester. OB Labs: Blood Type AB Negative 11/16/22 Antibody Screen NEGATIVE 03/22/23 Hemoglobin 11.8 g/dl (12.0-16.0) L 03/22/23 Hematocrit 36.8 % (37.0-47.0) L 03/22/23 Mean Corpuscular Volume 79.6 fL (80.0-100.0) L 11/16/22 Platelet Count 343 K/uL (130-400) 11/16/22 Rubella IgG Antibody Immune (Immune) 11/16/22 Rapid Plasma Reagin Nonreactive (Nonreactive) 11/16/22 Hepatitis B Surface Antigen. NON-REACTIVE (NON-REACTIVE) 11/16/22 Hepatitis C Antibody (EIA) NON-REACTIVE (NON-REACTIVE) 11/16/22 HIV (1&2) Ag and Ab Confirmation NON-REACTIVE (NON-REACTIVE) 11/16/22 Glucose 1 Hour 50 gm Load 121 mg/dl (70-130) 03/22/23 Maternal Serum Alpha Fetoprotein 25.8 ng/mL 12/28/22 OB Optional Labs: Chlamydia trachomatis RNA Not Detected (NotDetected) 11/16/22 Neisseria gonorrhoeae RNA Not Detected (NotDetected) 11/16/22 Thyroid Stimulating Hormone (TSH) 1.720 uIu/ml (0.300-4.500) 05/22/20 Alpha Fetoprotein Triple Screen SEE NOTE 12/28/22 Allergies Allergy/AdvReac Type Severity Reaction Status Date / Time sumatriptan [From Imitrex] AdvReac Confusion Verified 06/04/23 19:43 Home Medications Medication Instructions Recorded Confirmed Type fluticasone propionate 50 1 sprays intranasal HS 01/08/19 06/04/23 History mcg/actuation nasal spray,suspension montelukast 10 mg tablet 10 mg PO HS 05/12/19 06/04/23 History prenat.vits,damon,ccr-cikv-awhny 1 PO DAILY 05/25/20 06/04/23 History magnesium chloride 1 tab PO 1XD 12/25/21 06/04/23 History Baby Aspirin 81 mg 05/10/23 06/04/23 History Patient History Medical History Seasonal allergies PCOS (polycystic ovarian syndrome) Obesity Migraine without aura Surgical History History of esophagogastroduodenoscopy (EGD) S/P tooth extraction Family History Aunt Breast cancer, Onset Age: 50 maternal Grandmother (Maternal) Breast cancer, Onset Age: 40 Denies family history of Ovarian cancer Prostate cancer Myocardial infarction Colorectal cancer Social History (Updated 11/07/22 @ 15:10 by Anjali Ortiz) Smoking Status: Never smoker Second Hand Exposure: No; Do You Dip or Chew Tobacco: No; Tobacco Cessation Education Requested by Patient: No Hx Alcohol Use: No Hx Substance Use: No Preferred Language: Japanese Communication Ability: Effective Editorial Intern Required: No Beliefs That Will Affect Care: None marital status: marital status details: Tono Hickman (34) [phone] Current Living Situation: Spouse Current Living Situation Comment: lives with spouse, dog current occupational status: employed current occupation: [employer] Other Information That Helps Us Care for You: No Feels Safe at Home: Yes Safety Concerns: Feels Safe At This Time Assistive Devices: None 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 Gonzalez Review of Systems no fever, no chills and no sweats Denies changes in vision. Denies shortness of breath or respiratory difficulty. no chest pain and no palpitations no dysuria no headache(s) Physical Exam Physical Exam: General: Alert, oriented x3. Afebrile. Obese habitus. No acute distress. Eyes: Pupils equal and reactive to light bilaterally. Extraocular movement intact bilaterally. Cardiac: Regular rate and rhythm, no murmurs/rubs/gallops. Respiratory: Clear to auscultation bilaterally a/p, no wheezes/rales/rhonchi. No increased work of breathing. Symmetrical chest rise. No respiratory distress. Abdomen: Gravid; FHR baseline of 130-135 bpm; Position: Vertex Pelvic: 2/70/-[address] Orantes Lower Extremities: Bilateral LE swelling. No deep calf pain. Loretta's negative bilaterally Supervising Physician Co-Signing Physician Notes Resident Physician Supervision Note: I interviewed and examined the patient. Discussed with Dr. Reyna and agree with findings and plan as documented in the note. Any exceptions or clarifications are listed here: [None] Documented By: Savana Bansal MD, FACOG
[2023-06-05] MEDS ORDERED: LIDOCAINE 1% LOCAL 20 ML VIAL INFIL PRN (07:58)
[2023-06-05] MEDS ORDERED: OXYTOCIN 30 UNITS/NSS 30 UNITS/500 ML BAG IV PRN (07:58)
[2023-06-05] MEDS: LACTATED RINGER'S 1,000 ML IV PRN (08:56)
[2023-06-05] MEDS: OXYTOCIN 30 UNITS/NSS 30 UNITS/500 ML BAG IV PRN (08:57)
[2023-06-05] MEDS: PENICILLIN GK 6 MU in DEXTROSE 5% 250 ML IV ONE (08:57)
--- NOTE | 2023-06-05 09:45 | Labor Progress Brief Note ---
Date of Service June 05, 2023 Subjective 32yo at 39+wks ega for planned induction today due to obestiy and IVF and now with dx of ghtn, severe range bps. She denies phelan or visual change. No ruq pain. Assessment & Plan (1) Encounter for induction of labor: (2) Gestational hypertension: (3) Group B streptococcal infection during : (4) Need for rhogam due to Rh negative mother: (5) resulting from in vitro fertilization, antepartum: Plan at this point given bps and trend not improving. will trt as severe features and add iv labetalol now and henriquez and magnesium. have previously explained to pt and partner and rationale for doing so. c/w pit and pcn. plan arom in about 4hr. epidural if desires. no sx, labs done last night so will hold off on more labs this am. rhogam eval pp. Admission and Anticipated Discharge Date Admission Date: June 05, 2023 Physical Exam Constitutional: WD/WN, vitals as above Respiratory: normal respiratory effort, lungs clear to auscultation Gastrointestinal (Abdomen): soft gravid nt Musculoskeletal: tr edema Neurologic: DTRs +3 patellar. no clonus Genitourinary: Manual OB Exam: + cervical dilation (2cm per Dr. Orantes) OB Exam Monitor Tracing: + external FHT monitor used, + external uterine monitor used (no ctx, pit at 1), + category I and + normal FHT variability Results & Data Vital Signs (Past 12 Hours) Vital Signs Temp Pulse Resp BP 06/05/23 09:34 162/93 H 06/05/23 09:33 96 H 167/93 H 06/05/23 09:24 86 182/89 H 06/05/23 08:54 90 160/88 H 06/05/23 08:24 94 H 153/92 H 06/05/23 08:14 90 183/105 H 06/05/23 08:12 93 H 161/92 H 06/05/23 07:47 98.7 F 16 Coding Level of Care Code None Diagnoses Encounter for induction of labor Z34.90 Gestational hypertension O13.9 Group B streptococcal infection during O98.819; B95.1 Need for rhogam due to Rh negative mother Z29.13 resulting from in vitro fertilization, antepartum O09.819
[2023-06-05] MEDS: LABETALOL HCL IV 5 MG/ML 20ML IV STA (10:03)
[2023-06-05] MEDS: MAGNESIUM SULFATE / WTR 40 GM/1,000 ML BAG IV SCH (10:20)
[2023-06-05] MEDS: MAG SULFATE 4GM BOLUS FROM BAG IV ONE (10:21)
[2023-06-05 12:58] LABS: Hematocrit (blood only) 34.4 % (37.0-47.0); Hemoglobin 11.5 g/dl (12.0-16.0); Mean Corpuscular Hemoglobin 27.3 pg (25.0-34.0); Mean Corpuscular Hgb Conc 33.4 g/dL (32.0-36.0); Mean Corpuscular Volume 81.5 fL (80.0-100.0); Mean Platelet Volume 11.5 fL (9.4-12.4); Platelet Count 292 K/uL (130-400); RDW Coefficient of Variation 14.7 % (11.5-14.5); RDW Standard Deviation 43.3 fL (36.4-46.3); Red Blood Count 4.22 M/uL (4.20-5.40); White Blood Count 6.73 K/ul (4.8-10.8)
[2023-06-05] MEDS: PENICILLIN GK 3 MU in DEXTROSE 5% 100 ML IV PRN (13:20)
[2023-06-05] MEDS ORDERED: ACETAMINOPHEN 325 MG TAB PO PRN (13:43)
[2023-06-05 13:44] LABS: Albumin Globulin Ratio 0.9 (0.9-2); Albumin Level 3.4 gm/dl (3.4-5.0); BUN Creatinine Ratio 11.8 (10-20); Bilirubin,Total 0.4 mg/dl (0.2-1.0); Calcium 8.7 mg/dl (8.6-10.3); Est GFR (African American) 148.5 ml/min; Est GFR (Non-African American) 128.1 ml/min; Globulin 3.6 gm/dl (2.5-4.0)
[2023-06-05] MEDS: ACETAMINOPHEN 325 MG TAB PO ONE (13:51)
--- NOTE | 2023-06-05 13:57 | Labor Progress Brief Note ---
Date of Service June 05, 2023 Subjective pt comfortable. denies phelan or visual change. Assessment & Plan (1) Encounter for induction of labor: (2) Gestational hypertension: (3) Group B streptococcal infection during : (4) Need for rhogam due to Rh negative mother: (5) resulting from in vitro fertilization, antepartum: Plan will see if arom helps with labor pattern. cont with pit. fhts categ 1. Admission and Anticipated Discharge Date Admission Date: June 05, 2023 Physical Exam Constitutional: WD/WN, vitals as above Genitourinary: Manual OB Exam: + cervical dilation 2 cm, + cervical effacement 50% and + station (post) -2 OB Exam Monitor Tracing: + external FHT monitor used, + external uterine monitor used (q2-6), + category I and + normal FHT variability Results & Data Vital Signs (Past 12 Hours) Vital Signs Temp Pulse Resp BP Pulse Ox 06/05/23 13:48 99 H 95 06/05/23 13:43 100 H 96 06/05/23 13:41 95 H 94 06/05/23 13:38 102 H 95 06/05/23 13:37 94 H 146/80 H 06/05/23 13:33 103 H 96 06/05/23 13:28 95 H 96 06/05/23 13:23 93 H 98 06/05/23 13:21 95 H 148/79 H 06/05/23 13:18 91 H 95 06/05/23 13:13 95 H 96 06/05/23 13:08 93 H 97 06/05/23 13:06 90 155/84 H 06/05/23 13:05 98.3 F 06/05/23 13:04 16 06/05/23 13:03 91 H 98 06/05/23 12:58 99 H 99 06/05/23 12:53 92 H 98 06/05/23 12:51 87 154/80 H 06/05/23 12:48 93 H 95 06/05/23 12:43 93 H 97 06/05/23 12:38 91 H 96 06/05/23 12:36 93 H 148/76 H 94 06/05/23 12:33 94 H 98 06/05/23 12:28 87 98 06/05/23 12:23 90 96 06/05/23 12:21 81 144/72 H 06/05/23 12:18 86 97 06/05/23 12:13 90 96 06/05/23 12:08 86 97 06/05/23 12:06 90 149/80 H 06/05/23 12:03 93 H 98 06/05/23 12:01 98.3 F 16 06/05/23 12:01 16 06/05/23 11:58 93 H 97 06/05/23 11:53 87 97 06/05/23 11:51 95 H 138/78 06/05/23 11:48 89 96 06/05/23 11:43 88 98 06/05/23 11:38 85 97 06/05/23 11:36 81 142/76 H 06/05/23 11:33 92 H 97 06/05/23 11:28 86 97 06/05/23 11:23 89 97 06/05/23 11:21 85 140/76 06/05/23 11:18 86 97 06/05/23 11:13 87 96 06/05/23 11:08 89 95 06/05/23 11:06 82 139/70 06/05/23 11:03 16 06/05/23 11:03 88 97 06/05/23 10:58 93 H 95 06/05/23 10:53 83 97 06/05/23 10:51 84 144/76 H 06/05/23 10:50 16 06/05/23 10:48 84 97 06/05/23 10:43 84 96 06/05/23 10:38 16 06/05/23 10:38 85 96 06/05/23 10:36 85 145/78 H 06/05/23 10:33 85 95 06/05/23 10:30 84 148/73 H 06/05/23 10:28 85 96 06/05/23 10:24 86 148/74 H 06/05/23 10:23 90 96 06/05/23 10:16 78 141/77 H 06/05/23 10:03 85 165/87 H 06/05/23 10:00 16 06/05/23 09:56 85 165/87 H 06/05/23 09:54 91 H 134/64 06/05/23 09:34 162/93 H 06/05/23 09:33 96 H 167/93 H 06/05/23 09:24 86 182/89 H 06/05/23 08:54 90 160/88 H 06/05/23 08:24 94 H 153/92 H 06/05/23 08:14 90 183/105 H 06/05/23 08:12 93 H 161/92 H 06/05/23 07:47 98.7 F 16 Coding Level of Care Code None Diagnoses Encounter for induction of labor Z34.90 Gestational hypertension O13.9 Group B streptococcal infection during O98.819; B95.1 Need for rhogam due to Rh negative mother Z29.13 resulting from in vitro fertilization, antepartum O09.819
[2023-06-05] MEDS: ONDANSETRON INJ 2 MG/ML 2 ML VIAL IV STA (15:52)
--- NOTE | 2023-06-05 19:07 | Labor Progress Brief Note ---
Date of Service June 05, 2023 Subjective pt denies complaints. nausea gone after zofran. no phelan or visual change. she is not feeling pain with ctx. Assessment & Plan (1) Encounter for induction of labor: (2) Gestational hypertension: (3) Group B streptococcal infection during : (4) Need for rhogam due to Rh negative mother: (5) resulting from in vitro fertilization, antepartum: Plan no significant prolonged maintenance of labor pattern therefore did not examine pt and explained rationale to pt and she agreed. aware that can take some time to convince uterus to labor. if reach pit at 30 x 30min with no pattern, will halve and attempt washout of receptors and then restart at increase thereafter. c/w pcn for gbs pos. c/w mag for gest htn, severe range, s/p labetalo 20mg iv x 1, bps ok range currently. good urine output Admission and Anticipated Discharge Date Admission Date: June 05, 2023 Physical Exam Constitutional: WD/WN, vitals as above Genitourinary: OB Exam Monitor Tracing: + external FHT monitor used, + external uterine monitor used (q3-4 pit at 29), + category I and + normal FHT variability Results & Data Vital Signs (Past 12 Hours) Vital Signs Temp Pulse Resp BP Pulse Ox 06/05/23 19:00 102 H 93 06/05/23 18:58 100 H 96 06/05/23 18:53 104 H 98 06/05/23 18:51 105 H 151/82 H 06/05/23 18:50 105 H 93 06/05/23 18:48 102 H 94 06/05/23 18:44 104 H 94 06/05/23 18:43 103 H 94 06/05/23 18:38 107 H 97 06/05/23 18:36 102 H 155/82 H 06/05/23 18:34 106 H 94 06/05/23 18:33 104 H 94 06/05/23 18:28 116 H 95 06/05/23 18:24 98.4 F 06/05/23 18:23 106 H 98 06/05/23 18:21 102 H 161/88 H 06/05/23 18:18 101 H 98 06/05/23 18:13 102 H 93 06/05/23 18:08 108 H 96 06/05/23 18:06 103 H 133/71 06/05/23 18:03 101 H 96 06/05/23 18:02 101 H 94 06/05/23 17:58 103 H 98 06/05/23 17:57 100 H 94 06/05/23 17:53 104 H 95 06/05/23 17:51 94 06/05/23 17:51 103 H 06/05/23 17:51 99 H 137/72 06/05/23 17:48 99 H 96 06/05/23 17:45 100 H 93 06/05/23 17:43 101 H 96 06/05/23 17:38 97 H 95 06/05/23 17:37 100 H 137/75 94 06/05/23 17:33 104 H 96 06/05/23 17:28 103 H 91 06/05/23 17:26 101 H 93 06/05/23 17:23 100 H 93 06/05/23 17:21 101 H 147/84 H 06/05/23 17:20 100 H 94 06/05/23 17:18 106 H 95 06/05/23 17:14 109 H 94 06/05/23 17:13 105 H 95 06/05/23 17:09 109 H 94 06/05/23 17:08 104 H 95 06/05/23 17:06 108 H 146/86 H 06/05/23 17:04 101 H 94 06/05/23 17:03 102 H 94 06/05/23 16:58 101 H 96 06/05/23 16:57 103 H 94 06/05/23 16:53 101 H 96 06/05/23 16:51 109 H 140/85 06/05/23 16:49 104 H 94 06/05/23 16:48 98 H 97 06/05/23 16:43 104 H 97 06/05/23 16:42 104 H 94 06/05/23 16:38 106 H 97 06/05/23 16:36 100 H 140/80 06/05/23 16:33 105 H 96 06/05/23 16:28 103 H 95 06/05/23 16:23 103 H 95 06/05/23 16:22 101 H 147/84 H 06/05/23 16:18 103 H 96 06/05/23 16:13 100 H 97 06/05/23 16:08 99 H 96 03/27/24 16:06 95 H 169/89 H 06/05/23 16:03 103 H 97 06/05/23 16:02 98.4 F 06/05/23 16:02 16 06/05/23 16:02 94 H 93 06/05/23 15:58 95 H 95 06/05/23 15:53 94 H 97 06/05/23 15:51 90 153/83 H 06/05/23 15:48 98 H 96 06/05/23 15:43 96 H 97 06/05/23 15:38 95 H 97 06/05/23 15:36 94 H 156/87 H 06/05/23 15:33 95 H 96 06/05/23 15:28 97 H 96 06/05/23 15:23 92 H 96 06/05/23 15:21 90 153/81 H 06/05/23 15:18 96 06/05/23 15:18 97 H 06/05/23 15:18 94 H 94 06/05/23 15:13 93 H 98 06/05/23 15:08 95 H 97 06/05/23 15:06 93 H 163/87 H 06/05/23 15:03 96 H 98 06/05/23 14:58 97 H 96 06/05/23 14:53 92 H 98 06/05/23 14:52 95 H 155/85 H 06/05/23 14:48 93 H 96 06/05/23 14:43 93 H 98 06/05/23 14:38 94 H 98 06/05/23 14:36 90 139/78 06/05/23 14:33 98 H 95 06/05/23 14:28 92 H 99 06/05/23 14:23 101 H 98 06/05/23 14:21 92 H 148/87 H 06/05/23 14:18 96 H 98 06/05/23 14:13 99 H 99 06/05/23 14:09 99 H 94 06/05/23 14:08 96 H 96 06/05/23 14:06 93 H 146/82 H 06/05/23 14:05 16 06/05/23 14:04 98 H 94 06/05/23 14:03 93 H 95 06/05/23 13:58 96 H 96 06/05/23 13:53 98 06/05/23 13:53 101 H 06/05/23 13:53 105 H 93 06/05/23 13:52 100 H 153/83 H 06/05/23 13:48 99 H 95 06/05/23 13:43 100 H 96 06/05/23 13:41 95 H 94 06/05/23 13:38 102 H 95 06/05/23 13:37 94 H 146/80 H 06/05/23 13:33 103 H 96 06/05/23 13:28 95 H 96 06/05/23 13:23 93 H 98 06/05/23 13:21 95 H 148/79 H 06/05/23 13:18 91 H 95 06/05/23 13:13 95 H 96 06/05/23 13:08 93 H 97 06/05/23 13:06 90 155/84 H 06/05/23 13:05 98.3 F 06/05/23 13:04 16 06/05/23 13:03 91 H 98 06/05/23 12:58 99 H 99 06/05/23 12:53 92 H 98 06/05/23 12:51 87 154/80 H 06/05/23 12:48 93 H 95 06/05/23 12:43 93 H 97 06/05/23 12:38 91 H 96 06/05/23 12:36 93 H 148/76 H 94 06/05/23 12:33 94 H 98 06/05/23 12:28 87 98 06/05/23 12:23 90 96 06/05/23 12:21 81 144/72 H 06/05/23 12:18 86 97 06/05/23 12:13 90 96 06/05/23 12:08 86 97 06/05/23 12:06 90 149/80 H 06/05/23 12:03 93 H 98 06/05/23 12:01 98.3 F 16 06/05/23 12:01 16 06/05/23 11:58 93 H 97 06/05/23 11:53 87 97 06/05/23 11:51 95 H 138/78 06/05/23 11:48 89 96 06/05/23 11:43 88 98 06/05/23 11:38 85 97 06/05/23 11:36 81 142/76 H 06/05/23 11:33 92 H 97 06/05/23 11:28 86 97 06/05/23 11:23 89 97 06/05/23 11:21 85 140/76 06/05/23 11:18 86 97 06/05/23 11:13 87 96 06/05/23 11:08 89 95 06/05/23 11:06 82 139/70 06/05/23 11:03 16 06/05/23 11:03 88 97 06/05/23 10:58 93 H 95 06/05/23 10:53 83 97 06/05/23 10:51 84 144/76 H 06/05/23 10:50 16 06/05/23 10:48 84 97 06/05/23 10:43 84 96 06/05/23 10:38 16 06/05/23 10:38 85 96 06/05/23 10:36 85 145/78 H 06/05/23 10:33 85 95 06/05/23 10:30 84 148/73 H 06/05/23 10:28 85 96 06/05/23 10:24 86 148/74 H 06/05/23 10:23 90 96 06/05/23 10:16 78 141/77 H 06/05/23 10:03 85 165/87 H 06/05/23 10:00 16 06/05/23 09:56 85 165/87 H 06/05/23 09:54 91 H 134/64 06/05/23 09:34 162/93 H 06/05/23 09:33 96 H 167/93 H 06/05/23 09:24 86 182/89 H 06/05/23 08:54 90 160/88 H 06/05/23 08:24 94 H 153/92 H 06/05/23 08:14 90 183/105 H 06/05/23 08:12 93 H 161/92 H 06/05/23 07:47 98.7 F 16 Coding Level of Care Code None Diagnoses Encounter for induction of labor Z34.90 Gestational hypertension O13.9 Group B streptococcal infection during O98.819; B95.1 Need for rhogam due to Rh negative mother Z29.13 resulting from in vitro fertilization, antepartum O09.819
[2023-06-05] MEDS: ACETAMINOPHEN 325 MG TAB ONE (20:38)
[2023-06-06] MEDS ORDERED: BUPIVACAINE 0.25% PF 30 ML VIAL EPI PRN (00:03)
[2023-06-06] MEDS ORDERED: ONDANSETRON INJ 2 MG/ML 2 ML VIAL IV PRN ×2 (00:03→12:02)
[2023-06-06] MEDS ORDERED: LIDOCAINE 2% MPF LOCAL 5 ML VIAL EPI PRN (00:03)
[2023-06-06] MEDS ORDERED: NALOXONE HCL 0.4 MG/1 ML VIAL/CARP IV PRN ×2 (00:03→12:02)
[2023-06-06] MEDS ORDERED: SODIUM CHLORIDE 0.9% PF INJ 10 ML VIAL EPI PRN (00:03)
[2023-06-06] MEDS ORDERED: ePHEDrine sulfate 50 MG/ML AMP IV PRN ×2 (00:03→12:02)
[2023-06-06] MEDS ORDERED: NALOXONE HCL 1 MG in SODIUM CHLORIDE 0.9% 1,000 ML IV PRN ×2 (00:03→12:02)
[2023-06-06] MEDS ORDERED: ROPIVACAINE 0.5% PF 5 MG/ML 20 ML VIAL EPI PRN (00:03)
[2023-06-06] MEDS ORDERED: NALBUPHINE HCL 5 MG in SYRINGE 0 ML IV PRN ×2 (00:03→12:02)
[2023-06-06] MEDS ORDERED: fentaNYL citrate PF 100 MCG/2 ML VIAL EPI PRN (00:03)
[2023-06-06] MEDS ORDERED: diphenhydrAMINE 50 MG/ML VIAL IV PRN ×2 (00:03→12:02)
--- NOTE | 2023-06-06 00:03 | Anesthesiology Consultation ---
Date of Service June 06, 2023 Assessment & Plan ASA ASA3 Proposed Anesthesia Anesthesia Type: Labor Epidural Risk / Benefits Reviewed With: PT / POA / Parent / Guardian, Accepts Plan and Informed Consent Obtained History Height/Weight Height: 5 ft 7 in Weight: 137.438 kg Allergies Allergy/AdvReac Type Severity Reaction Status Date / Time sumatriptan [From Imitrex] AdvReac Confusion Verified 06/05/23 08:41 Medications Home Medications Medication Instructions Recorded Confirmed Last Taken fluticasone propionate 50 1 sprays intranasal HS 01/08/19 06/05/23 06/04/23 mcg/actuation nasal 0800 spray,suspension montelukast 10 mg tablet 10 mg PO HS 05/12/19 06/05/23 06/04/23 0800 aspirin 81 mg PO DAILY 06/05/23 06/05/23 06/04/23 0800 vits no.124-ferrous fum 1 tab PO DAILY 06/05/23 06/05/23 06/04/23 27 mg iron-folic acid 800 mcg 0800 tablet ( Vitamin) Active Medications Generic Name Dose Route Start Last Admin Trade Name Freq PRN Reason Stop Dose Admin Lactated Ringer's 1,000 mls @ 125 mls/hr 06/05/23 07:58 06/05/23 08:56 Lr IV 06/07/23 07:57 125 mls/hr .Q8H PRN Administration L&D Protocol Protocol Penicillin G Potassium 3 mu/ 106 mls @ 100 mls/hr 06/05/23 10:58 06/05/23 21:08 Dextrose IV 06/15/23 10:57 100 mls/hr Q4H PRN Administration GBS(+) Until Delivery Oxytocin 30 units in 500 mls @ 27 mls/hr 06/05/23 08:01 06/05/23 23:22 Pitocin 30 Units/Nss IV 06/07/23 08:00 1.62 units/hr .[id number] PRN 27 mls/hr Labor Induction/Augmentation Titration Protocol 1.62 UNITS/HR Magnesium Sulfate 40 gm in 1,000 mls @ 50 mls/hr 06/05/23 09:45 06/05/23 19:13 Magnesium Sulfate / Wtr IV 07/05/23 09:44 50 mls/hr .Q20H MELO Infusion Past Medical History Medical History Seasonal allergies PCOS (polycystic ovarian syndrome) Obesity Migraine without aura Exercise / Class Metabolic Activity II 4-5 Yardwork/Stairs/Walk up hill Past Family History Family History Aunt Breast cancer, Onset Age: 50 maternal Grandmother (Maternal) Breast cancer, Onset Age: 40 Denies family history of Ovarian cancer Prostate cancer Myocardial infarction Colorectal cancer Past Surgical History Surgical History History of esophagogastroduodenoscopy (EGD) S/P tooth extraction Past Anesthesia History No Hx of Anesthesia Complications and No Family Hx of Anesthesia Complications History of PONV No Hx of PONV and No Hx of Motion Sickness Social History Smoking Status: Never smoker Do You Dip or Chew Tobacco: No Hx Alcohol Use: No Hx Substance Use: No Review of Systems denies fever/cough/ colds/ chest pain/ SOB/ ABUNDIO denies ABUNDIO Physical Exam Vital Signs Last Vital Signs Temp 36.8 C 06/05/23 22:10 Pulse 109 H 06/05/23 23:58 Resp 16 06/05/23 23:00 BP 142/79 H 06/05/23 23:52 Pulse Ox 97 06/05/23 23:58 ENMT Mouth: no TMJ abnormality and no dentition abnormality Thyromental Distance: > or= 3.5 Finger Breadths Mallampati Class: II Neck neck extension not limited Respiratory normal respiratory effort; no respiratory distress Auscultation: lungs clear to auscultation bilaterally Cardiovascular Rate/Rhythm: regular rate and regular rhythm Neurologic moves all extremities Psychiatric Orientation: alert and oriented x 3 Testing Laboratory Results 06/05/23 08:22 06/05/23 13:09 Blood Type AB Negative 06/05/23 08:19 Antibody Screen NEGATIVE 06/05/23 08:19
[2023-06-06] MEDS: fentaNYL citrate PF 100 MCG/2 ML VIAL EPI STA (00:42)
[2023-06-06] MEDS: BUPIVACAINE 0.25% PF 30 ML VIAL EPI STA (00:42)
[2023-06-06] MEDS: fentANYL 2 MCG/ML BUPIVacaine 0.125%-NSS 100ML BAG EPI PRN (00:43)
[2023-06-06] MEDS: ePHEDrine sulfate 50 MG/ML AMP ONE (01:24)
[2023-06-06] MEDS: fentaNYL citrate PF 100 MCG/2 ML VIAL ONE (01:24)
[2023-06-06] MEDS: BUPIVACAINE 0.25% PF 30 ML VIAL ONE (01:24)
[2023-06-06] MEDS: fentANYL 2 MCG/ML BUPIVacaine 0.125%-NSS 100ML BAG ONE (01:25)
[2023-06-06] MEDS: LIDOCAINE 2%/EPINEPHRINE 1:200,000 20 ML PF ONE (04:29)
[2023-06-06] MEDS: SODIUM CHLORIDE 0.9% PF INJ 10 ML VIAL ONE (04:29)
[2023-06-06] MEDS: LIDOCAINE 2%/EPINEPHRINE 1:200,000 20 ML PF EPI STA (04:30)
[2023-06-06] MEDS: SODIUM CHLORIDE 0.9% PF INJ 10 ML VIAL EPI STA (04:30)
--- NOTE | 2023-06-06 06:54 | Labor Progress Brief Note ---
Date of Service June 06, 2023 Subjective pt comfortable overall. denies phelan or visual change. Assessment & Plan (1) Encounter for induction of labor: (2) Gestational hypertension: (3) Group B streptococcal infection during : (4) Need for rhogam due to Rh negative mother: (5) resulting from in vitro fertilization, antepartum: Plan exam as noted. no equivalent with nursing but change for my exam at start of i nduction. have never achieved great labor pattern and have halved pit once and reclimbed. i rec halve pit again and reclimb and reeval cx with time. no real pressure of head against cx and suspect lack of power is issue however have been at 30 milliunits of pit twice now. she is well, no severe bps on going , no symptoms and fetus categ 1. discussed with patient trial again of pit as noted however if cx not changing significantly will likely require cs, this would be per judgment of new provider coming front office administrator. she wants to retry pitocin as per this plan and verbalizes understanding. i have not used iupc in her situation because we are not seeing ctx pattern that would be testing adequate mvus(too spaced out) and reaching maximum pitocin dosing anyway. Patient understands and agreeable. Admission and Anticipated Discharge Date Admission Date: June 05, 2023 Physical Exam Constitutional: WD/WN, vitals as above Genitourinary: Manual OB Exam: + cervical dilation 4 cm, + cervical effacement 90% and + station -2 OB Exam Monitor Tracing: + external FHT monitor used, + external uterine monitor used (q4-5min, pit at 30), + category I and + normal FHT variability Results & Data Vital Signs (Past 12 Hours) Vital Signs Temp Pulse Resp BP Pulse Ox 06/06/23 06:46 18 06/06/23 06:44 106 H 97 06/06/23 06:39 115 H 97 06/06/23 06:34 94 06/06/23 06:34 103 H 06/06/23 06:34 101 H 137/75 94 06/06/23 06:29 94 06/06/23 06:29 99 H 06/06/23 06:29 102 H 93 06/06/23 06:24 102 H 92 06/06/23 06:23 104 H 93 06/06/23 06:19 102 H 140/80 93 06/06/23 06:16 101 H 93 06/06/23 06:14 102 H 93 06/06/23 06:11 101 H 93 06/06/23 06:09 102 H 96 06/06/23 06:06 106 H 93 06/06/23 06:05 101 H 131/80 06/06/23 06:04 101 H 96 06/06/23 05:59 95 06/06/23 05:59 101 H 06/06/23 05:59 100 H 94 06/06/23 05:54 100 H 97 06/06/23 05:52 103 H 94 06/06/23 05:50 98 H 140/76 06/06/23 05:49 98 H 95 06/06/23 05:44 97 H 94 06/06/23 05:43 95 H 92 06/06/23 05:39 97 H 94 06/06/23 05:36 97 H 93 06/06/23 05:34 94 H 111/56 L 96 06/06/23 05:31 18 06/06/23 05:31 18 06/06/23 05:29 92 06/06/23 05:29 96 H 06/06/23 05:29 95 H 92 06/06/23 05:24 92 06/06/23 05:24 100 H 06/06/23 05:24 96 H 93 06/06/23 05:19 96 H 111/56 L 93 06/06/23 05:17 100 H 92 06/06/23 05:14 96 H 94 06/06/23 05:11 96 H 94 06/06/23 05:09 97 H 94 06/06/23 05:04 102 H 112/55 L 95 06/06/23 04:59 98.1 F 106 H 18 95 06/06/23 04:56 108 H 94 06/06/23 04:54 104 H 96 06/06/23 04:51 101 H 109/56 L 06/06/23 04:50 103 H 94 06/06/23 04:49 105 H 96 06/06/23 04:45 104 H 94 06/06/23 04:44 101 H 96 06/06/23 04:39 101 H 96 06/06/23 04:35 101 H 94 06/06/23 04:34 100 H 132/65 90 06/06/23 04:30 99 H 94 06/06/23 04:29 100 H 91 06/06/23 04:24 92 06/06/23 04:24 99 H 06/06/23 04:24 97 H 92 06/06/23 04:20 18 06/06/23 04:20 93 H 127/66 06/06/23 04:19 98 H 94 06/06/23 04:18 101 H 94 06/06/23 04:14 100 H 95 06/06/23 04:12 113 H 94 06/06/23 04:09 102 H 96 06/06/23 04:03 109 H 97 06/06/23 04:00 18 06/06/23 04:00 18 06/06/23 03:58 91 H 94 06/06/23 03:53 99 H 89 L 06/06/23 03:51 99 H 92 06/06/23 03:49 98 H 132/62 06/06/23 03:48 99 H 94 06/06/23 03:46 103 H 94 06/06/23 03:43 105 H 97 06/06/23 03:38 94 H 90 06/06/23 03:37 94 H 94 06/06/23 03:35 95 H 127/61 06/06/23 03:33 98 H 89 L 06/06/23 03:30 18 06/06/23 03:30 97 H 16 92 06/06/23 03:28 97 H 89 L 06/06/23 03:24 97 H 94 06/06/23 03:23 96 H 95 06/06/23 03:21 100 H 129/75 06/06/23 03:18 104 H 96 06/06/23 03:13 92 06/06/23 03:13 92 H 06/06/23 03:13 95 H 91 06/06/23 03:08 98 H 89 L 06/06/23 03:06 90 94 06/06/23 03:04 95 H 132/60 06/06/23 03:03 95 H 90 06/06/23 03:01 91 H 93 06/06/23 02:58 94 H 90 06/06/23 02:55 90 93 06/06/23 02:53 91 H 91 06/06/23 02:49 89 132/59 L 06/06/23 02:48 90 91 06/06/23 02:47 92 H 92 06/06/23 02:43 92 H 90 06/06/23 02:40 92 H 92 06/06/23 02:38 89 97 06/06/23 02:35 94 H 130/67 06/06/23 02:33 94 H 97 06/06/23 02:31 103 H 92 06/06/23 02:29 18 06/06/23 02:29 18 06/06/23 02:28 100 H 97 06/06/23 02:25 92 H 92 06/06/23 02:23 94 H 91 06/06/23 02:19 92 H 132/62 94 06/06/23 02:18 93 H 91 06/06/23 02:15 18 06/06/23 02:15 98.1 F 18 06/06/23 02:13 93 H 90 06/06/23 02:11 90 91 06/06/23 02:08 93 H 89 L 06/06/23 02:04 97 H 130/63 06/06/23 02:03 91 H 92 06/06/23 02:01 89 92 06/06/23 01:58 87 89 L 06/06/23 01:54 88 92 06/06/23 01:53 95 H 94 06/06/23 01:49 85 127/59 L 06/06/23 01:48 91 H 91 06/06/23 01:43 92 H 92 06/06/23 01:42 93 H 94 06/06/23 01:38 97 H 96 06/06/23 01:36 99 H 94 06/06/23 01:35 95 H 124/59 L 06/06/23 01:33 109 H 96 06/06/23 01:31 18 06/06/23 01:31 18 06/06/23 01:29 90 91 06/06/23 01:28 87 91 06/06/23 01:23 87 85 L 06/06/23 01:21 87 91 06/06/23 01:19 95 H 119/60 06/06/23 01:18 89 91 06/06/23 01:15 82 92 06/06/23 01:13 88 90 06/06/23 01:09 85 92 06/06/23 01:08 90 93 06/06/23 01:05 99 H 124/64 06/06/23 01:04 95 H 93 06/06/23 01:03 96 06/06/23 01:03 91 H 06/06/23 01:03 91 H 125/60 06/06/23 01:01 83 18 121/58 L 06/06/23 00:59 86 131/60 06/06/23 00:58 92 06/06/23 00:58 87 06/06/23 00:58 88 94 06/06/23 00:57 86 119/58 L 06/06/23 00:55 90 18 123/60 06/06/23 00:53 97 06/06/23 00:53 87 06/06/23 00:53 88 112/58 L 06/06/23 00:51 94 06/06/23 00:51 98 H 06/06/23 00:51 96 H 125/62 06/06/23 00:50 18 06/06/23 00:50 18 06/06/23 00:49 98 H 128/60 06/06/23 00:48 100 H 98 06/06/23 00:47 96 H 122/57 L 06/06/23 00:45 101 H 18 128/65 06/06/23 00:43 103 H 134/70 96 06/06/23 00:41 101 H 141/75 H 06/06/23 00:40 99 H 18 94 06/06/23 00:38 98 06/06/23 00:38 95 H 06/06/23 00:38 96 H 142/80 H 06/06/23 00:33 97 H 95 06/06/23 00:31 96 H 94 06/06/23 00:28 86 96 06/06/23 00:23 109 H 95 06/06/23 00:18 102 H 95 06/06/23 00:13 119 H 97 06/06/23 00:08 97 H 99 06/06/23 00:06 108 H 146/86 H 06/06/23 00:03 112 H 96 06/06/23 00:00 97.9 F 18 06/06/23 00:00 18 06/05/23 23:58 109 H 97 06/05/23 23:53 94 H 98 06/05/23 23:52 99 H 142/79 H 06/05/23 23:48 103 H 98 06/05/23 23:43 96 H 97 06/05/23 23:38 97 H 98 06/05/23 23:36 100 H 149/81 H 06/05/23 23:33 96 H 98 06/05/23 23:28 101 H 97 06/05/23 23:23 109 H 97 06/05/23 23:21 110 H 148/87 H 06/05/23 23:18 100 H 97 06/05/23 23:13 102 H 97 06/05/23 23:08 105 H 97 06/05/23 23:07 106 H 139/70 06/05/23 23:04 102 H 94 06/05/23 23:03 104 H 97 06/05/23 23:00 16 06/05/23 22:58 104 H 94 06/05/23 22:57 103 H 94 06/05/23 22:53 107 H 95 06/05/23 22:51 102 H 132/67 06/05/23 22:48 104 H 99 06/05/23 22:46 97 H 93 06/05/23 22:43 101 H 97 06/05/23 22:38 99 H 95 06/05/23 22:36 98 H 94 06/05/23 22:33 101 H 96 06/05/23 22:31 100 H 93 06/05/23 22:28 99 H 96 06/05/23 22:25 100 H 92 06/05/23 22:23 101 H 91 06/05/23 22:21 97 H 135/65 06/05/23 22:19 96 H 93 06/05/23 22:18 96 H 94 06/05/23 22:13 99 H 94 06/05/23 22:10 98.2 F 18 06/05/23 22:08 100 H 96 06/05/23 22:06 100 H 144/81 H 06/05/23 22:03 95 H 97 06/05/23 22:00 16 06/05/23 22:00 18 06/05/23 21:58 95 H 99 06/05/23 21:57 107 H 94 06/05/23 21:53 102 H 93 06/05/23 21:52 99 H 93 06/05/23 21:51 97 H 146/82 H 06/05/23 21:48 97 H 97 06/05/23 21:45 97 H 94 06/05/23 21:43 103 H 96 06/05/23 21:38 107 H 97 06/05/23 21:36 104 H 137/86 06/05/23 21:34 105 H 93 06/05/23 21:33 100 H 96 06/05/23 21:28 107 H 97 06/05/23 21:23 109 H 97 06/05/23 21:21 105 H 157/94 H 06/05/23 21:18 108 H 96 06/05/23 21:13 111 H 97 06/05/23 21:08 107 H 98 06/05/23 21:06 106 H 140/90 06/05/23 21:03 103 H 97 06/05/23 21:01 18 06/05/23 21:01 98.2 F 18 06/05/23 21:00 18 06/05/23 20:58 110 H 97 06/05/23 20:53 108 H 96 06/05/23 20:52 107 H 159/97 H 06/05/23 20:48 108 H 97 06/05/23 20:43 111 H 97 06/05/23 20:39 108 H 155/91 H 06/05/23 20:38 108 H 93 06/05/23 20:36 104 H 06/05/23 20:36 160/96 H 06/05/23 20:36 106 H 167/97 H 06/05/23 20:33 107 H 96 06/05/23 20:31 108 H 94 06/05/23 20:28 105 H 96 06/05/23 20:24 99 H 155/91 H 06/05/23 20:23 105 H 98 06/05/23 20:21 107 H 160/97 H 06/05/23 20:18 95 06/05/23 20:18 103 H 06/05/23 20:18 107 H 93 06/05/23 20:13 107 H 95 06/05/23 20:08 106 H 94 06/05/23 20:06 105 H 156/91 H 06/05/23 20:03 102 H 96 06/05/23 20:00 18 06/05/23 19:58 97 H 98 06/05/23 19:57 104 H 94 06/05/23 19:53 99 H 95 06/05/23 19:51 102 H 155/89 H 06/05/23 19:49 100 H 93 06/05/23 19:48 103 H 97 06/05/23 19:43 93 06/05/23 19:43 106 H 06/05/23 19:43 102 H 93 06/05/23 19:38 106 H 96 06/05/23 19:37 104 H 93 06/05/23 19:36 98 H 153/84 H 06/05/23 19:33 108 H 96 06/05/23 19:31 105 H 94 06/05/23 19:28 107 H 95 06/05/23 19:23 106 H 95 06/05/23 19:21 98.2 F 18 06/05/23 19:21 18 06/05/23 19:21 94 06/05/23 19:21 106 H 06/05/23 19:21 105 H 152/86 H 06/05/23 19:18 101 H 96 06/05/23 19:13 94 06/05/23 19:13 104 H 06/05/23 19:13 104 H 93 06/05/23 19:08 103 H 96 06/05/23 19:06 106 H 149/80 H 06/05/23 19:05 104 H 94 06/05/23 19:03 103 H 97 06/05/23 19:00 102 H 93 06/05/23 18:58 100 H 96 06/05/23 18:53 104 H 98 06/05/23 18:51 105 H 151/82 H 06/05/23 18:50 105 H 93 06/05/23 18:48 102 H 94 Coding Level of Care Code None Diagnoses Encounter for induction of labor Z34.90 Gestational hypertension O13.9 Group B streptococcal infection during O98.819; B95.1 Need for rhogam due to Rh negative mother Z29.13 resulting from in vitro fertilization, antepartum O09.819
[2023-06-06] MEDS: ONDANSETRON INJ 2 MG/ML 2 ML VIAL IV PRN (07:58)
--- NOTE | 2023-06-06 08:34 | Labor Progress Brief Note ---
Date of Service June 06, 2023 Signed over from call at [address] Otto patient has been attempted to be induced over several days with a cervical Geronimo and then subsequent Pitocin membranes have been ruptured Pitocin is reached up to 30 milliunits/min per previous provider and has been then turned down and then restarted several times. Patient does have an epidural and is resting comfortable I discussed with the patient that her labor pattern is somewhat slow and that this is a possible concern for section discussed with her as additionally that we could continue with the Pitocin her contraction pattern at this stage is not ideal with only occasional contractions. Assessment & Plan Admission and Anticipated Discharge Date Admission Date: June 05, 2023 Results & Data Vital Signs (Past 12 Hours) Vital Signs Temp Pulse Resp BP Pulse Ox 06/06/23 08:29 109 H 96 06/06/23 08:24 96 H 92 06/06/23 08:22 94 H 88 L 06/06/23 08:19 96 H 131/67 94 06/06/23 08:17 97 H 89 L 06/06/23 08:14 102 H 95 06/06/23 08:12 102 H 86 L 06/06/23 08:09 97 H 92 06/06/23 08:06 99 H 88 L 06/06/23 08:04 105 H 132/66 95 06/06/23 07:59 99 H 94 06/06/23 07:54 104 H 94 06/06/23 07:49 98 H 138/73 94 06/06/23 07:48 97 H 88 L 06/06/23 07:44 95 H 94 06/06/23 07:41 95 H 88 L 06/06/23 07:39 99 H 96 06/06/23 07:34 108 H 138/80 97 06/06/23 07:29 103 H 96 06/06/23 07:24 100 H 98 06/06/23 07:19 101 H 129/67 94 06/06/23 07:14 104 H 95 06/06/23 07:09 102 H 96 06/06/23 07:08 103 H 93 06/06/23 07:05 98 H 142/76 H 06/06/23 07:04 102 H 96 06/06/23 07:02 105 H 94 06/06/23 06:59 106 H 95 06/06/23 06:56 105 H 94 06/06/23 06:54 104 H 94 06/06/23 06:51 107 H 94 06/06/23 06:49 101 H 133/71 94 06/06/23 06:46 18 06/06/23 06:44 106 H 97 06/06/23 06:39 115 H 97 06/06/23 06:34 94 06/06/23 06:34 103 H 06/06/23 06:34 101 H 137/75 94 06/06/23 06:29 94 06/06/23 06:29 99 H 06/06/23 06:29 102 H 93 06/06/23 06:24 102 H 92 06/06/23 06:23 104 H 93 06/06/23 06:19 102 H 140/80 93 06/06/23 06:16 101 H 93 06/06/23 06:14 102 H 93 06/06/23 06:11 101 H 93 06/06/23 06:09 102 H 96 06/06/23 06:06 106 H 93 06/06/23 06:05 101 H 131/80 06/06/23 06:04 101 H 96 06/06/23 05:59 95 06/06/23 05:59 101 H 06/06/23 05:59 100 H 94 06/06/23 05:54 100 H 97 06/06/23 05:52 103 H 94 06/06/23 05:50 98 H 140/76 06/06/23 05:49 98 H 95 06/06/23 05:44 97 H 94 06/06/23 05:43 95 H 92 06/06/23 05:39 97 H 94 06/06/23 05:36 97 H 93 06/06/23 05:34 94 H 111/56 L 96 06/06/23 05:31 18 06/06/23 05:31 18 06/06/23 05:29 92 06/06/23 05:29 96 H 06/06/23 05:29 95 H 92 06/06/23 05:24 92 06/06/23 05:24 100 H 06/06/23 05:24 96 H 93 06/06/23 05:19 96 H 111/56 L 93 06/06/23 05:17 100 H 92 06/06/23 05:14 96 H 94 06/06/23 05:11 96 H 94 06/06/23 05:09 97 H 94 06/06/23 05:04 102 H 112/55 L 95 06/06/23 04:59 98.1 F 106 H 18 95 06/06/23 04:56 108 H 94 06/06/23 04:54 104 H 96 06/06/23 04:51 101 H 109/56 L 06/06/23 04:50 103 H 94 06/06/23 04:49 105 H 96 06/06/23 04:45 104 H 94 06/06/23 04:44 101 H 96 06/06/23 04:39 101 H 96 06/06/23 04:35 101 H 94 06/06/23 04:34 100 H 132/65 90 06/06/23 04:30 99 H 94 06/06/23 04:29 100 H 91 06/06/23 04:24 92 06/06/23 04:24 99 H 06/06/23 04:24 97 H 92 06/06/23 04:20 18 06/06/23 04:20 93 H 127/66 06/06/23 04:19 98 H 94 06/06/23 04:18 101 H 94 06/06/23 04:14 100 H 95 06/06/23 04:12 113 H 94 06/06/23 04:09 102 H 96 06/06/23 04:03 109 H 97 06/06/23 04:00 18 06/06/23 04:00 18 06/06/23 03:58 91 H 94 06/06/23 03:53 99 H 89 L 06/06/23 03:51 99 H 92 06/06/23 03:49 98 H 132/62 06/06/23 03:48 99 H 94 06/06/23 03:46 103 H 94 06/06/23 03:43 105 H 97 06/06/23 03:38 94 H 90 06/06/23 03:37 94 H 94 06/06/23 03:35 95 H 127/61 06/06/23 03:33 98 H 89 L 06/06/23 03:30 18 06/06/23 03:30 97 H 16 92 06/06/23 03:28 97 H 89 L 06/06/23 03:24 97 H 94 06/06/23 03:23 96 H 95 06/06/23 03:21 100 H 129/75 06/06/23 03:18 104 H 96 06/06/23 03:13 92 06/06/23 03:13 92 H 06/06/23 03:13 95 H 91 06/06/23 03:08 98 H 89 L 06/06/23 03:06 90 94 06/06/23 03:04 95 H 132/60 06/06/23 03:03 95 H 90 06/06/23 03:01 91 H 93 06/06/23 02:58 94 H 90 06/06/23 02:55 90 93 06/06/23 02:53 91 H 91 06/06/23 02:49 89 132/59 L 06/06/23 02:48 90 91 06/06/23 02:47 92 H 92 06/06/23 02:43 92 H 90 06/06/23 02:40 92 H 92 06/06/23 02:38 89 97 06/06/23 02:35 94 H 130/67 06/06/23 02:33 94 H 97 06/06/23 02:31 103 H 92 06/06/23 02:29 18 06/06/23 02:29 18 06/06/23 02:28 100 H 97 06/06/23 02:25 92 H 92 06/06/23 02:23 94 H 91 06/06/23 02:19 92 H 132/62 94 06/06/23 02:18 93 H 91 06/06/23 02:15 18 06/06/23 02:15 98.1 F 18 06/06/23 02:13 93 H 90 06/06/23 02:11 90 91 06/06/23 02:08 93 H 89 L 06/06/23 02:04 97 H 130/63 06/06/23 02:03 91 H 92 06/06/23 02:01 89 92 06/06/23 01:58 87 89 L 06/06/23 01:54 88 92 06/06/23 01:53 95 H 94 06/06/23 01:49 85 127/59 L 06/06/23 01:48 91 H 91 06/06/23 01:43 92 H 92 06/06/23 01:42 93 H 94 06/06/23 01:38 97 H 96 06/06/23 01:36 99 H 94 06/06/23 01:35 95 H 124/59 L 06/06/23 01:33 109 H 96 06/06/23 01:31 18 06/06/23 01:31 18 06/06/23 01:29 90 91 06/06/23 01:28 87 91 06/06/23 01:23 87 85 L 06/06/23 01:21 87 91 06/06/23 01:19 95 H 119/60 06/06/23 01:18 89 91 06/06/23 01:15 82 92 06/06/23 01:13 88 90 06/06/23 01:09 85 92 06/06/23 01:08 90 93 06/06/23 01:05 99 H 124/64 06/06/23 01:04 95 H 93 06/06/23 01:03 96 06/06/23 01:03 91 H 06/06/23 01:03 91 H 125/60 06/06/23 01:01 83 18 121/58 L 06/06/23 00:59 86 131/60 06/06/23 00:58 92 06/06/23 00:58 87 06/06/23 00:58 88 94 06/06/23 00:57 86 119/58 L 06/06/23 00:55 90 18 123/60 06/06/23 00:53 97 06/06/23 00:53 87 06/06/23 00:53 88 112/58 L 06/06/23 00:51 94 06/06/23 00:51 98 H 06/06/23 00:51 96 H 125/62 06/06/23 00:50 18 06/06/23 00:50 18 06/06/23 00:49 98 H 128/60 06/06/23 00:48 100 H 98 06/06/23 00:47 96 H 122/57 L 06/06/23 00:45 101 H 18 128/65 06/06/23 00:43 103 H 134/70 96 06/06/23 00:41 101 H 141/75 H 06/06/23 00:40 99 H 18 94 06/06/23 00:38 98 06/06/23 00:38 95 H 06/06/23 00:38 96 H 142/80 H 06/06/23 00:33 97 H 95 06/06/23 00:31 96 H 94 06/06/23 00:28 86 96 06/06/23 00:23 109 H 95 06/06/23 00:18 102 H 95 06/06/23 00:13 119 H 97 06/06/23 00:08 97 H 99 06/06/23 00:06 108 H 146/86 H 06/06/23 00:03 112 H 96 06/06/23 00:00 97.9 F 18 06/06/23 00:00 18 06/05/23 23:58 109 H 97 06/05/23 23:53 94 H 98 06/05/23 23:52 99 H 142/79 H 06/05/23 23:48 103 H 98 06/05/23 23:43 96 H 97 06/05/23 23:38 97 H 98 06/05/23 23:36 100 H 149/81 H 06/05/23 23:33 96 H 98 06/05/23 23:28 101 H 97 06/05/23 23:23 109 H 97 06/05/23 23:21 110 H 148/87 H 06/05/23 23:18 100 H 97 06/05/23 23:13 102 H 97 06/05/23 23:08 105 H 97 06/05/23 23:07 106 H 139/70 06/05/23 23:04 102 H 94 06/05/23 23:03 104 H 97 06/05/23 23:00 16 06/05/23 22:58 104 H 94 06/05/23 22:57 103 H 94 06/05/23 22:53 107 H 95 06/05/23 22:51 102 H 132/67 06/05/23 22:48 104 H 99 06/05/23 22:46 97 H 93 06/05/23 22:43 101 H 97 06/05/23 22:38 99 H 95 06/05/23 22:36 98 H 94 06/05/23 22:33 101 H 96 06/05/23 22:31 100 H 93 06/05/23 22:28 99 H 96 06/05/23 22:25 100 H 92 06/05/23 22:23 101 H 91 06/05/23 22:21 97 H 135/65 06/05/23 22:19 96 H 93 06/05/23 22:18 96 H 94 06/05/23 22:13 99 H 94 06/05/23 22:10 98.2 F 18 06/05/23 22:08 100 H 96 06/05/23 22:06 100 H 144/81 H 06/05/23 22:03 95 H 97 06/05/23 22:00 16 06/05/23 22:00 18 06/05/23 21:58 95 H 99 06/05/23 21:57 107 H 94 06/05/23 21:53 102 H 93 06/05/23 21:52 99 H 93 06/05/23 21:51 97 H 146/82 H 06/05/23 21:48 97 H 97 06/05/23 21:45 97 H 94 06/05/23 21:43 103 H 96 06/05/23 21:38 107 H 97 06/05/23 21:36 104 H 137/86 06/05/23 21:34 105 H 93 06/05/23 21:33 100 H 96 06/05/23 21:28 107 H 97 06/05/23 21:23 109 H 97 06/05/23 21:21 105 H 157/94 H 06/05/23 21:18 108 H 96 06/05/23 21:13 111 H 97 06/05/23 21:08 107 H 98 06/05/23 21:06 106 H 140/90 06/05/23 21:03 103 H 97 06/05/23 21:01 18 06/05/23 21:01 98.2 F 18 06/05/23 21:00 18 06/05/23 20:58 110 H 97 06/05/23 20:53 108 H 96 06/05/23 20:52 107 H 159/97 H 06/05/23 20:48 108 H 97 06/05/23 20:43 111 H 97 06/05/23 20:39 108 H 155/91 H 06/05/23 20:38 108 H 93 06/05/23 20:36 104 H 06/05/23 20:36 160/96 H 06/05/23 20:36 106 H 167/97 H 06/05/23 20:33 107 H 96 Coding Level of Care Code None
--- NOTE | 2023-06-06 10:00 | Labor Progress Brief Note ---
Date of Service June 06, 2023 After observing for an hour and a half the Pitocin is now at 23 several times and has been up to 30 in the evening before by the previous provider cut down and restarted I am seeing literally very little contraction response heart rate is category 1 however there are minimal contractions in all I discussed with the patient that she is really a failure to progress but more importantly a failure to achieve labor her membranes were ruptured and she is hypertension with severe features I discussed at some point we need to consider section as she is not responding and additionally the longer she is ruptured would raise risk such as infection. We could continue however I am likely going to With the Pitocin at 30 milliunits/min. I discussed that at this stage with the lack of progress despite high-dose Pitocin and rupture of membranes we may never bring her in a full enough labor pattern to allow for vaginal delivery. I discussed of course that while I recommend section at this stage that is not mandatory we could continue the Pitocin as well they will discuss I did discuss what involved with the specifically increased risks of infection as well with prolonged rupture of membranes and long induction section. The patient was counseled to the nature of the procedure including alternatives such as labor. Risks were discussed including bleeding infection injury to bowel bladder ureter vessels and even baby. Deep Vein thrombosis, pulmonary embolus discussed. Breakdown of incision reviewed. Deep vein thrombosis pulmonary embolus hernia and failure of the incision to heal were discussed Patient verbalized understanding of this and was given ample time to ask questions Assessment & Plan Admission and Anticipated Discharge Date Admission Date: June 05, 2023 Results & Data Vital Signs (Past 12 Hours) Vital Signs Temp Pulse Resp BP Pulse Ox 06/06/23 09:54 105 H 97 06/06/23 09:50 94 H 89 L 06/06/23 09:49 89 128/62 96 06/06/23 09:44 92 H 93 06/06/23 09:39 94 H 94 06/06/23 09:34 103 H 133/75 92 06/06/23 09:29 105 H 95 06/06/23 09:24 100 H 91 06/06/23 09:23 102 H 88 L 06/06/23 09:21 99 H 128/72 06/06/23 09:19 100 H 94 06/06/23 09:14 101 H 93 06/06/23 09:09 105 H 97 03/28/24 09:04 105 H 136/71 95 06/06/23 08:59 110 H 97 06/06/23 08:54 106 H 97 06/06/23 08:50 102 H 135/73 06/06/23 08:49 101 H 94 06/06/23 08:44 102 H 94 06/06/23 08:39 108 H 95 06/06/23 08:35 101 H 128/59 L 06/06/23 08:34 108 H 94 06/06/23 08:29 109 H 96 06/06/23 08:24 96 H 92 06/06/23 08:22 94 H 88 L 06/06/23 08:19 96 H 131/67 94 06/06/23 08:17 97 H 89 L 06/06/23 08:14 102 H 95 06/06/23 08:12 102 H 86 L 06/06/23 08:09 97 H 92 06/06/23 08:06 99 H 88 L 06/06/23 08:04 105 H 132/66 95 06/06/23 07:59 99 H 94 06/06/23 07:54 104 H 94 06/06/23 07:49 98 H 138/73 94 06/06/23 07:48 97 H 88 L 06/06/23 07:44 95 H 94 06/06/23 07:41 95 H 88 L 06/06/23 07:39 99 H 96 06/06/23 07:34 108 H 138/80 97 06/06/23 07:30 18 06/06/23 07:29 103 H 96 06/06/23 07:24 100 H 98 06/06/23 07:19 101 H 129/67 94 06/06/23 07:14 104 H 95 06/06/23 07:09 102 H 96 06/06/23 07:08 103 H 93 06/06/23 07:05 98 H 142/76 H 06/06/23 07:04 102 H 96 06/06/23 07:02 105 H 94 06/06/23 06:59 106 H 95 06/06/23 06:56 105 H 94 06/06/23 06:54 104 H 94 06/06/23 06:51 107 H 94 06/06/23 06:49 101 H 133/71 94 06/06/23 06:46 18 06/06/23 06:44 106 H 97 06/06/23 06:39 115 H 97 06/06/23 06:34 94 06/06/23 06:34 103 H 06/06/23 06:34 101 H 137/75 94 06/06/23 06:29 94 06/06/23 06:29 99 H 06/06/23 06:29 102 H 93 06/06/23 06:24 102 H 92 06/06/23 06:23 104 H 93 06/06/23 06:19 102 H 140/80 93 06/06/23 06:16 101 H 93 06/06/23 06:14 102 H 93 06/06/23 06:11 101 H 93 06/06/23 06:09 102 H 96 06/06/23 06:06 106 H 93 06/06/23 06:05 101 H 131/80 06/06/23 06:04 101 H 96 06/06/23 05:59 95 06/06/23 05:59 101 H 06/06/23 05:59 100 H 94 06/06/23 05:54 100 H 97 06/06/23 05:52 103 H 94 06/06/23 05:50 98 H 140/76 06/06/23 05:49 98 H 95 06/06/23 05:44 97 H 94 06/06/23 05:43 95 H 92 06/06/23 05:39 97 H 94 06/06/23 05:36 97 H 93 06/06/23 05:34 94 H 111/56 L 96 06/06/23 05:31 18 06/06/23 05:31 18 06/06/23 05:29 92 06/06/23 05:29 96 H 06/06/23 05:29 95 H 92 06/06/23 05:24 92 06/06/23 05:24 100 H 06/06/23 05:24 96 H 93 06/06/23 05:19 96 H 111/56 L 93 06/06/23 05:17 100 H 92 06/06/23 05:14 96 H 94 06/06/23 05:11 96 H 94 06/06/23 05:09 97 H 94 06/06/23 05:04 102 H 112/55 L 95 06/06/23 04:59 98.1 F 106 H 18 95 06/06/23 04:56 108 H 94 06/06/23 04:54 104 H 96 06/06/23 04:51 101 H 109/56 L 06/06/23 04:50 103 H 94 06/06/23 04:49 105 H 96 06/06/23 04:45 104 H 94 06/06/23 04:44 101 H 96 06/06/23 04:39 101 H 96 06/06/23 04:35 101 H 94 06/06/23 04:34 100 H 132/65 90 06/06/23 04:30 99 H 94 06/06/23 04:29 100 H 91 06/06/23 04:24 92 06/06/23 04:24 99 H 06/06/23 04:24 97 H 92 06/06/23 04:20 18 06/06/23 04:20 93 H 127/66 06/06/23 04:19 98 H 94 06/06/23 04:18 101 H 94 06/06/23 04:14 100 H 95 06/06/23 04:12 113 H 94 06/06/23 04:09 102 H 96 06/06/23 04:03 109 H 97 06/06/23 04:00 18 06/06/23 04:00 18 06/06/23 03:58 91 H 94 06/06/23 03:53 99 H 89 L 06/06/23 03:51 99 H 92 06/06/23 03:49 98 H 132/62 06/06/23 03:48 99 H 94 06/06/23 03:46 103 H 94 06/06/23 03:43 105 H 97 06/06/23 03:38 94 H 90 06/06/23 03:37 94 H 94 06/06/23 03:35 95 H 127/61 06/06/23 03:33 98 H 89 L 06/06/23 03:30 18 06/06/23 03:30 97 H 16 92 06/06/23 03:28 97 H 89 L 06/06/23 03:24 97 H 94 06/06/23 03:23 96 H 95 06/06/23 03:21 100 H 129/75 06/06/23 03:18 104 H 96 06/06/23 03:13 92 06/06/23 03:13 92 H 06/06/23 03:13 95 H 91 06/06/23 03:08 98 H 89 L 06/06/23 03:06 90 94 06/06/23 03:04 95 H 132/60 06/06/23 03:03 95 H 90 06/06/23 03:01 91 H 93 06/06/23 02:58 94 H 90 06/06/23 02:55 90 93 06/06/23 02:53 91 H 91 06/06/23 02:49 89 132/59 L 06/06/23 02:48 90 91 06/06/23 02:47 92 H 92 06/06/23 02:43 92 H 90 06/06/23 02:40 92 H 92 06/06/23 02:38 89 97 06/06/23 02:35 94 H 130/67 06/06/23 02:33 94 H 97 06/06/23 02:31 103 H 92 06/06/23 02:29 18 06/06/23 02:29 18 06/06/23 02:28 100 H 97 06/06/23 02:25 92 H 92 06/06/23 02:23 94 H 91 06/06/23 02:19 92 H 132/62 94 06/06/23 02:18 93 H 91 06/06/23 02:15 18 06/06/23 02:15 98.1 F 18 06/06/23 02:13 93 H 90 06/06/23 02:11 90 91 06/06/23 02:08 93 H 89 L 06/06/23 02:04 97 H 130/63 06/06/23 02:03 91 H 92 06/06/23 02:01 89 92 06/06/23 01:58 87 89 L 06/06/23 01:54 88 92 06/06/23 01:53 95 H 94 06/06/23 01:49 85 127/59 L 06/06/23 01:48 91 H 91 06/06/23 01:43 92 H 92 06/06/23 01:42 93 H 94 06/06/23 01:38 97 H 96 06/06/23 01:36 99 H 94 06/06/23 01:35 95 H 124/59 L 06/06/23 01:33 109 H 96 06/06/23 01:31 18 06/06/23 01:31 18 06/06/23 01:29 90 91 06/06/23 01:28 87 91 06/06/23 01:23 87 85 L 06/06/23 01:21 87 91 06/06/23 01:19 95 H 119/60 06/06/23 01:18 89 91 06/06/23 01:15 82 92 06/06/23 01:13 88 90 06/06/23 01:09 85 92 06/06/23 01:08 90 93 06/06/23 01:05 99 H 124/64 06/06/23 01:04 95 H 93 06/06/23 01:03 96 06/06/23 01:03 91 H 06/06/23 01:03 91 H 125/60 06/06/23 01:01 83 18 121/58 L 06/06/23 00:59 86 131/60 06/06/23 00:58 92 06/06/23 00:58 87 06/06/23 00:58 88 94 06/06/23 00:57 86 119/58 L 06/06/23 00:55 90 18 123/60 06/06/23 00:53 97 06/06/23 00:53 87 06/06/23 00:53 88 112/58 L 06/06/23 00:51 94 06/06/23 00:51 98 H 06/06/23 00:51 96 H 125/62 06/06/23 00:50 18 06/06/23 00:50 18 06/06/23 00:49 98 H 128/60 06/06/23 00:48 100 H 98 06/06/23 00:47 96 H 122/57 L 06/06/23 00:45 101 H 18 128/65 06/06/23 00:43 103 H 134/70 96 06/06/23 00:41 101 H 141/75 H 06/06/23 00:40 99 H 18 94 06/06/23 00:38 98 06/06/23 00:38 95 H 06/06/23 00:38 96 H 142/80 H 06/06/23 00:33 97 H 95 06/06/23 00:31 96 H 94 06/06/23 00:28 86 96 06/06/23 00:23 109 H 95 06/06/23 00:18 102 H 95 06/06/23 00:13 119 H 97 06/06/23 00:08 97 H 99 06/06/23 00:06 108 H 146/86 H 06/06/23 00:03 112 H 96 06/06/23 00:00 97.9 F 18 06/06/23 00:00 18 06/05/23 23:58 109 H 97 06/05/23 23:53 94 H 98 06/05/23 23:52 99 H 142/79 H 06/05/23 23:48 103 H 98 06/05/23 23:43 96 H 97 06/05/23 23:38 97 H 98 06/05/23 23:36 100 H 149/81 H 06/05/23 23:33 96 H 98 06/05/23 23:28 101 H 97 06/05/23 23:23 109 H 97 06/05/23 23:21 110 H 148/87 H 06/05/23 23:18 100 H 97 06/05/23 23:13 102 H 97 06/05/23 23:08 105 H 97 06/05/23 23:07 106 H 139/70 06/05/23 23:04 102 H 94 06/05/23 23:03 104 H 97 06/05/23 23:00 16 06/05/23 22:58 104 H 94 06/05/23 22:57 103 H 94 06/05/23 22:53 107 H 95 06/05/23 22:51 102 H 132/67 06/05/23 22:48 104 H 99 06/05/23 22:46 97 H 93 06/05/23 22:43 101 H 97 06/05/23 22:38 99 H 95 06/05/23 22:36 98 H 94 06/05/23 22:33 101 H 96 06/05/23 22:31 100 H 93 06/05/23 22:28 99 H 96 06/05/23 22:25 100 H 92 06/05/23 22:23 101 H 91 06/05/23 22:21 97 H 135/65 06/05/23 22:19 96 H 93 06/05/23 22:18 96 H 94 06/05/23 22:13 99 H 94 06/05/23 22:10 98.2 F 18 06/05/23 22:08 100 H 96 06/05/23 22:06 100 H 144/81 H 06/05/23 22:03 95 H 97 06/05/23 22:00 16 06/05/23 22:00 18 Coding Level of Care Code None
[2023-06-06] MEDS: CITRIC ACID/SODIUM CITRATE 15 ML UDC ONE (10:33)
[2023-06-06] MEDS: ceFAZolin 3000MG 3,000 MG/72.5 ML BAG IV SCH (10:35)
[2023-06-06] MEDS ORDERED: LIDOCAINE 2%/EPINEPHRINE 1:200,000 20 ML PF ONE (11:08)
[2023-06-06] MEDS ORDERED: OXYTOCIN 10 UNITS/ML VIAL ONE (11:12)
[2023-06-06] MEDS ORDERED: MoRPHine SULFATE PF 1 MG/ML 10 ML AMP/VIAL ONE (11:12)
[2023-06-06] MEDS ORDERED: CARBOPROST TROMETHAMINE 250 MCG/ML AMPUL ONE (11:15)
[2023-06-06 11:35] LABS: Base Excess Cord Arterial Bld 2.1 mEq/L (-9-1.8); CO2 Cord Arterial Blood 52 mmHg (39.1-73.5); HCO3 Cord Arterial Blood 29 mmol/L (19.7-28.5); Oxygen Sat Cord Arterial Blood < 60.0 % (<60); PO2 Cord Arterial Blood < 20 mmHg (4.1-31.7); pH Cord Arterial Blood 7.35 (7.1-7.38)
[2023-06-06 11:37] LABS: Base Excess Cord Venous Blood 0.3 mEq/L (-7.7-1.9); Cord Venous Blood HCO3 25 mmol/L (18.4-26.8); Cord Venous Blood PCO2 42 mmHg (30.4-57.2); Cord Venous Blood PO2 33 mmHg (14.1-43.3); Cord Venous Blood pH 7.39 (7.20-7.44)
--- NOTE | 2023-06-06 11:49 | Operative Report ---
[facility] Post Operative Report Pre & Post Diagnosis Operation Date: 06/06/23 10:00 Pre-Op Diagnosis: 1. Gestational HTN with severe features. 2. Failure to Progress. Post-Op Diagnosis: Same I identified the patient and participated in the time-out.: Yes Procedure Operation Date: 06/06/23 10:00 Actual Procedures p Section in LD; Primary lower uterine transverse section for the of a live boy at 1106.(Bilateral) - Daniella Howard MD, FACOG Surgeon Daniella Howard MD, FACOG Conveyancer Dr. Coffey Estimated Blood Loss 700 Findings Consistent with Post-Op Diagnosis Specimens cord blood, gases Description of Procedure Regional anesthetic had been given by anesthesia patient was prepped and draped with a leftward tilt preoperative antibiotics had been given in appropriate timing by anesthesiology. Once the prep was allowed to fully dry timeout was performed. Pickups with teeth were used to test the incision area was found to be adequate for incision as the patient did not feel sharp pain. Scalpel was used to make a Pfannenstiel incision on the lower abdomen. We then cut through the subcutaneous fat down to the level of the anterior rectus sheath fascia this was cut in the midline and then extended laterally with the curved Carlisle scissors. At this stage we then placed 2 Harriet clamps on the anterior aspect of the fascia. Using the curved Carlisle's we are able to dissect the fascia superiorly away from the rectus muscles. Care was taken to maintain hemostasis. Harriet clamps were then placed to the inferior aspect of the anterior sheath of the fascia. Fascia was then dissected away from the rectus muscles inferiorly towards the pubic bone. A Harriet was then placed in the midline both inferiorly and superiorly. This was to allow exposure by retraction rectus muscles were in the midline with were then able to cut through the peritoneum and then enter the peritoneal cavity. Opening was enlarged to allow exposure of the peritoneal cavity both superiorly and inferiorly. Once adequate space was obtained a bladder retractor was placed to expose the lower segment Metzenbaums were used to dissect the bladder flap inferiorly away from the uterus. This was done sharply bladder retractor was then repositioned to expose the lower segment of the uterus Fresh scalpel was used to make a low transverse incision on the uterus. Uterus was then entered bluntly with the operators finger, membranes ruptured and the opening was enlarged using the operators fingers bluntly pulling superiorly and inferiorly to allow exposure. Baby is in occiput posterior position not in the pelvis floating Baby was delivered by first flexion of the head elevation of the head out of the pelvis and then pressure by the senior executive assistant on the maternal abdomen. Baby's head was then delivered mouth and then nares were suctioned and then using gentle traction the baby was fully delivered. Live vigorous . Fluid was clear cord clamped and cut cord gases obtained cord blood obtained baby handed to pediatrics. Placenta removed was removed with traction we ensure the entire placenta was removed with a moist lap sponge into the uterus Uterus was then exteriorized. IV Pitocin had been started by anesthesia tone improved there were no extensions the uterus was then closed using 0 Monocryl in a 2 layer closure the first layer closed in a running locked fashion from left to right and then a second closure from left to right in a running nonlocked fashion. The back wall of the uterus had significant decidualization and likely adhesions to the ovary and some of these were oozy we did place a [id number] of 3-0 Vicryl near the right ovary as it was bleeding this improved I did put Christophe on this area as well and hemostasis was improved uterus was then placed back into the peritoneal cavity Christophe was also placed on the anterior aspect of the bonny rine incision At this stage hemostasis was excellent. Uterus was placed back in the peritoneal cavity with suction irrigation out and inspection of the uterus at this stage revealed excellent hemostasis Retractors were removed urine color was clear at this stage of the case we inspected the rectus muscles they were hemostatic fascia was closed with 0 Vicryl subcutaneous fat was irrigated and closed with 3-0 Vicryl skin closed with 4-0 subcuticular Monocryl Nadege dressing applied I attest to the content of the Intraoperative Record and any orders documented therein. Any exceptions are noted below. OB Procedure Charges 10986
[2023-06-06] MEDS ORDERED: NALOXONE HCL 0.08 MG in SYRINGE 1.8 ML IV PRN (12:02)
[2023-06-06] MEDS ORDERED: MEPERIDINE HCL 25 MG/ML CARP/VIAL IV PRN (12:02)
[2023-06-06] MEDS ORDERED: PROMETHAZINE HCL 6.25 MG in SODIUM CHLORIDE 0.9% 50 ML IV PRN (12:02)
[2023-06-06] MEDS ORDERED: HYDROmorphone INJ 0.5 MG/0.5 ML SYR IV PRN (12:02)
[2023-06-06] MEDS ORDERED: LACTATED RINGER'S 500 ML IV PRN (12:02)
--- NOTE | 2023-06-06 12:02 | Anesthesiology Progress Note ---
Date of Service June 06, 2023 Anesthesia Post Procedure Vital Signs Vital Signs: Temp Pulse Resp BP Pulse Ox 06/06/23 12:00 78 82 L 06/06/23 11:57 75 95 06/06/23 11:56 77 98/53 L 06/06/23 11:53 82 92/51 L 06/06/23 11:52 14 06/06/23 11:52 36.6 C 14 06/06/23 11:52 97 06/06/23 11:52 82 06/06/23 11:52 76 80 L 06/06/23 10:39 111 H 94 06/06/23 10:34 123 H 137/77 94 06/06/23 10:29 102 H 94 06/06/23 10:24 105 H 96 06/06/23 10:20 110 H 136/71 06/06/23 10:19 109 H 94 06/06/23 10:14 108 H 94 06/06/23 10:09 104 H 96 06/06/23 10:04 106 H 130/68 98 06/06/23 09:59 102 H 96 06/06/23 09:54 105 H 97 06/06/23 09:50 94 H 89 L 06/06/23 09:49 89 128/62 96 06/06/23 09:44 92 H 93 06/06/23 09:39 94 H 94 06/06/23 09:34 103 H 133/75 92 06/06/23 09:30 16 06/06/23 09:30 16 06/06/23 09:30 36.7 C 16 06/06/23 09:29 105 H 95 06/06/23 09:24 100 H 91 06/06/23 09:23 102 H 88 L 06/06/23 09:21 99 H 128/72 06/06/23 09:19 100 H 94 06/06/23 09:14 101 H 93 06/06/23 09:09 105 H 97 06/06/23 09:04 105 H 136/71 95 06/06/23 08:59 110 H 97 06/06/23 08:54 106 H 97 06/06/23 08:50 102 H 135/73 06/06/23 08:49 101 H 94 06/06/23 08:44 102 H 94 06/06/23 08:39 108 H 95 06/06/23 08:36 16 06/06/23 08:36 16 06/06/23 08:35 101 H 128/59 L 06/06/23 08:34 108 H 94 06/06/23 08:29 109 H 96 06/06/23 08:24 96 H 92 06/06/23 08:22 94 H 88 L 06/06/23 08:19 96 H 131/67 94 06/06/23 08:17 97 H 89 L 06/06/23 08:14 102 H 95 06/06/23 08:12 102 H 86 L 06/06/23 08:09 97 H 92 06/06/23 08:06 99 H 88 L 06/06/23 08:04 105 H 132/66 95 06/06/23 07:59 99 H 94 06/06/23 07:54 104 H 94 06/06/23 07:49 98 H 138/73 94 06/06/23 07:48 97 H 88 L 06/06/23 07:44 95 H 94 06/06/23 07:41 95 H 88 L 06/06/23 07:39 99 H 96 06/06/23 07:34 108 H 138/80 97 06/06/23 07:30 18 06/06/23 07:29 103 H 96 06/06/23 07:24 100 H 98 06/06/23 07:19 101 H 129/67 94 06/06/23 07:15 36.7 C 06/06/23 07:14 104 H 95 06/06/23 07:09 102 H 96 06/06/23 07:08 103 H 93 06/06/23 07:05 98 H 142/76 H 06/06/23 07:04 102 H 96 06/06/23 07:02 105 H 94 06/06/23 06:59 106 H 95 06/06/23 06:56 105 H 94 06/06/23 06:54 104 H 94 06/06/23 06:51 107 H 94 06/06/23 06:49 101 H 133/71 94 06/06/23 06:46 18 06/06/23 06:44 106 H 97 06/06/23 06:39 115 H 97 06/06/23 06:34 94 06/06/23 06:34 103 H 06/06/23 06:34 101 H 137/75 94 06/06/23 06:29 94 06/06/23 06:29 99 H 06/06/23 06:29 102 H 93 06/06/23 06:24 102 H 92 06/06/23 06:23 104 H 93 06/06/23 06:19 102 H 140/80 93 06/06/23 06:16 101 H 93 06/06/23 06:14 102 H 93 06/06/23 06:11 101 H 93 06/06/23 06:09 102 H 96 06/06/23 06:06 106 H 93 06/06/23 06:05 101 H 131/80 06/06/23 06:04 101 H 96 06/06/23 05:59 95 06/06/23 05:59 101 H 06/06/23 05:59 100 H 94 06/06/23 05:54 100 H 97 06/06/23 05:52 103 H 94 06/06/23 05:50 98 H 140/76 06/06/23 05:49 98 H 95 06/06/23 05:44 97 H 94 06/06/23 05:43 95 H 92 06/06/23 05:39 97 H 94 06/06/23 05:36 97 H 93 06/06/23 05:34 94 H 111/56 L 96 06/06/23 05:31 18 06/06/23 05:31 18 06/06/23 05:29 92 06/06/23 05:29 96 H 06/06/23 05:29 95 H 92 06/06/23 05:24 92 06/06/23 05:24 100 H 06/06/23 05:24 96 H 93 06/06/23 05:19 96 H 111/56 L 93 06/06/23 05:17 100 H 92 06/06/23 05:14 96 H 94 06/06/23 05:11 96 H 94 06/06/23 05:09 97 H 94 06/06/23 05:04 102 H 112/55 L 95 06/06/23 04:59 36.7 C 106 H 18 95 06/06/23 04:56 108 H 94 06/06/23 04:54 104 H 96 06/06/23 04:51 101 H 109/56 L 06/06/23 04:50 103 H 94 06/06/23 04:49 105 H 96 06/06/23 04:45 104 H 94 06/06/23 04:44 101 H 96 06/06/23 04:39 101 H 96 06/06/23 04:35 101 H 94 06/06/23 04:34 100 H 132/65 90 06/06/23 04:30 99 H 94 06/06/23 04:29 100 H 91 06/06/23 04:24 92 06/06/23 04:24 99 H 06/06/23 04:24 97 H 92 06/06/23 04:20 18 06/06/23 04:20 93 H 127/66 06/06/23 04:19 98 H 94 06/06/23 04:18 101 H 94 06/06/23 04:14 100 H 95 06/06/23 04:12 113 H 94 06/06/23 04:09 102 H 96 06/06/23 04:03 109 H 97 06/06/23 04:00 18 06/06/23 04:00 18 06/06/23 03:58 91 H 94 06/06/23 03:53 99 H 89 L 06/06/23 03:51 99 H 92 06/06/23 03:49 98 H 132/62 06/06/23 03:48 99 H 94 06/06/23 03:46 103 H 94 06/06/23 03:43 105 H 97 06/06/23 03:38 94 H 90 06/06/23 03:37 94 H 94 06/06/23 03:35 95 H 127/61 06/06/23 03:33 98 H 89 L 06/06/23 03:30 18 06/06/23 03:30 97 H 16 92 06/06/23 03:28 97 H 89 L 06/06/23 03:24 97 H 94 06/06/23 03:23 96 H 95 06/06/23 03:21 100 H 129/75 06/06/23 03:18 104 H 96 06/06/23 03:13 92 06/06/23 03:13 92 H 06/06/23 03:13 95 H 91 06/06/23 03:08 98 H 89 L 06/06/23 03:06 90 94 06/06/23 03:04 95 H 132/60 06/06/23 03:03 95 H 90 06/06/23 03:01 91 H 93 06/06/23 02:58 94 H 90 06/06/23 02:55 90 93 06/06/23 02:53 91 H 91 06/06/23 02:49 89 132/59 L 06/06/23 02:48 90 91 06/06/23 02:47 92 H 92 06/06/23 02:43 92 H 90 06/06/23 02:40 92 H 92 06/06/23 02:38 89 97 06/06/23 02:35 94 H 130/67 06/06/23 02:33 94 H 97 06/06/23 02:31 103 H 92 06/06/23 02:29 18 06/06/23 02:29 18 06/06/23 02:28 100 H 97 06/06/23 02:25 92 H 92 06/06/23 02:23 94 H 91 06/06/23 02:19 92 H 132/62 94 06/06/23 02:18 93 H 91 06/06/23 02:15 18 06/06/23 02:15 36.7 C 18 06/06/23 02:13 93 H 90 06/06/23 02:11 90 91 06/06/23 02:08 93 H 89 L 06/06/23 02:04 97 H 130/63 06/06/23 02:03 91 H 92 06/06/23 02:01 89 92 06/06/23 01:58 87 89 L 06/06/23 01:54 88 92 06/06/23 01:53 95 H 94 06/06/23 01:49 85 127/59 L 06/06/23 01:48 91 H 91 06/06/23 01:43 92 H 92 06/06/23 01:42 93 H 94 06/06/23 01:38 97 H 96 06/06/23 01:36 99 H 94 06/06/23 01:35 95 H 124/59 L 06/06/23 01:33 109 H 96 06/06/23 01:31 18 06/06/23 01:31 18 06/06/23 01:29 90 91 06/06/23 01:28 87 91 06/06/23 01:23 87 85 L 06/06/23 01:21 87 91 06/06/23 01:19 95 H 119/60 06/06/23 01:18 89 91 06/06/23 01:15 82 92 06/06/23 01:13 88 90 06/06/23 01:09 85 92 06/06/23 01:08 90 93 06/06/23 01:05 99 H 124/64 06/06/23 01:04 95 H 93 06/06/23 01:03 96 06/06/23 01:03 91 H 06/06/23 01:03 91 H 125/60 06/06/23 01:01 83 18 121/58 L 06/06/23 00:59 86 131/60 06/06/23 00:58 92 06/06/23 00:58 87 06/06/23 00:58 88 94 06/06/23 00:57 86 119/58 L 06/06/23 00:55 90 18 123/60 06/06/23 00:53 97 06/06/23 00:53 87 06/06/23 00:53 88 112/58 L 06/06/23 00:51 94 06/06/23 00:51 98 H 06/06/23 00:51 96 H 125/62 06/06/23 00:50 18 06/06/23 00:50 18 06/06/23 00:49 98 H 128/60 06/06/23 00:48 100 H 98 06/06/23 00:47 96 H 122/57 L 06/06/23 00:45 101 H 18 128/65 06/06/23 00:43 103 H 134/70 96 06/06/23 00:41 101 H 141/75 H 06/06/23 00:40 99 H 18 94 06/06/23 00:38 98 06/06/23 00:38 95 H 06/06/23 00:38 96 H 142/80 H 06/06/23 00:33 97 H 95 06/06/23 00:31 96 H 94 06/06/23 00:28 86 96 06/06/23 00:23 109 H 95 06/06/23 00:18 102 H 95 06/06/23 00:13 119 H 97 06/06/23 00:08 97 H 99 06/06/23 00:06 108 H 146/86 H 06/06/23 00:03 112 H 96 06/06/23 00:00 36.6 C 18 06/06/23 00:00 18 06/05/23 23:58 109 H 97 06/05/23 23:53 94 H 98 06/05/23 23:52 99 H 142/79 H 06/05/23 23:48 103 H 98 06/05/23 23:43 96 H 97 06/05/23 23:38 97 H 98 06/05/23 23:36 100 H 149/81 H 06/05/23 23:33 96 H 98 06/05/23 23:28 101 H 97 06/05/23 23:23 109 H 97 06/05/23 23:21 110 H 148/87 H 06/05/23 23:18 100 H 97 06/05/23 23:13 102 H 97 06/05/23 23:08 105 H 97 06/05/23 23:07 106 H 139/70 06/05/23 23:04 102 H 94 06/05/23 23:03 104 H 97 06/05/23 23:00 16 06/05/23 22:58 104 H 94 06/05/23 22:57 103 H 94 06/05/23 22:53 107 H 95 06/05/23 22:51 102 H 132/67 06/05/23 22:48 104 H 99 06/05/23 22:46 97 H 93 06/05/23 22:43 101 H 97 06/05/23 22:38 99 H 95 06/05/23 22:36 98 H 94 06/05/23 22:33 101 H 96 06/05/23 22:31 100 H 93 06/05/23 22:28 99 H 96 06/05/23 22:25 100 H 92 06/05/23 22:23 101 H 91 06/05/23 22:21 97 H 135/65 06/05/23 22:19 96 H 93 06/05/23 22:18 96 H 94 06/05/23 22:13 99 H 94 06/05/23 22:10 36.8 C 18 06/05/23 22:08 100 H 96 06/05/23 22:06 100 H 144/81 H 06/05/23 22:03 95 H 97 06/05/23 22:00 16 06/05/23 22:00 18 06/05/23 21:58 95 H 99 06/05/23 21:57 107 H 94 06/05/23 21:53 102 H 93 06/05/23 21:52 99 H 93 06/05/23 21:51 97 H 146/82 H 06/05/23 21:48 97 H 97 06/05/23 21:45 97 H 94 06/05/23 21:43 103 H 96 06/05/23 21:38 107 H 97 06/05/23 21:36 104 H 137/86 06/05/23 21:34 105 H 93 06/05/23 21:33 100 H 96 06/05/23 21:28 107 H 97 06/05/23 21:23 109 H 97 06/05/23 21:21 105 H 157/94 H 06/05/23 21:18 108 H 96 06/05/23 21:13 111 H 97 06/05/23 21:08 107 H 98 06/05/23 21:06 106 H 140/90 06/05/23 21:03 103 H 97 06/05/23 21:01 18 06/05/23 21:01 36.8 C 18 06/05/23 21:00 18 06/05/23 20:58 110 H 97 06/05/23 20:53 108 H 96 06/05/23 20:52 107 H 159/97 H 06/05/23 20:48 108 H 97 06/05/23 20:43 111 H 97 06/05/23 20:39 108 H 155/91 H 06/05/23 20:38 108 H 93 06/05/23 20:36 104 H 06/05/23 20:36 160/96 H 06/05/23 20:36 106 H 167/97 H 06/05/23 20:33 107 H 96 06/05/23 20:31 108 H 94 06/05/23 20:28 105 H 96 06/05/23 20:24 99 H 155/91 H 06/05/23 20:23 105 H 98 06/05/23 20:21 107 H 160/97 H 06/05/23 20:18 95 06/05/23 20:18 103 H 06/05/23 20:18 107 H 93 06/05/23 20:13 107 H 95 06/05/23 20:08 106 H 94 06/05/23 20:06 105 H 156/91 H 06/05/23 20:03 102 H 96 06/05/23 20:00 18 06/05/23 19:58 97 H 98 06/05/23 19:57 104 H 94 06/05/23 19:53 99 H 95 06/05/23 19:51 102 H 155/89 H 06/05/23 19:49 100 H 93 06/05/23 19:48 103 H 97 06/05/23 19:43 93 06/05/23 19:43 106 H 06/05/23 19:43 102 H 93 06/05/23 19:38 106 H 96 06/05/23 19:37 104 H 93 06/05/23 19:36 98 H 153/84 H 06/05/23 19:33 108 H 96 06/05/23 19:31 105 H 94 06/05/23 19:28 107 H 95 06/05/23 19:23 106 H 95 06/05/23 19:21 36.8 C 18 06/05/23 19:21 18 06/05/23 19:21 94 06/05/23 19:21 106 H 06/05/23 19:21 105 H 152/86 H 06/05/23 19:18 101 H 96 06/05/23 19:13 94 06/05/23 19:13 104 H 06/05/23 19:13 104 H 93 06/05/23 19:08 103 H 96 06/05/23 19:06 106 H 149/80 H 06/05/23 19:05 104 H 94 06/05/23 19:03 103 H 97 06/05/23 19:00 102 H 93 06/05/23 18:58 100 H 96 06/05/23 18:53 104 H 98 06/05/23 18:51 105 H 151/82 H 06/05/23 18:50 105 H 93 06/05/23 18:48 102 H 94 06/05/23 18:44 104 H 94 06/05/23 18:43 103 H 94 06/05/23 18:38 107 H 97 06/05/23 18:36 102 H 155/82 H 06/05/23 18:34 106 H 94 06/05/23 18:33 104 H 94 06/05/23 18:28 116 H 95 06/05/23 18:24 36.9 C 06/05/23 18:23 106 H 98 06/05/23 18:21 102 H 161/88 H 06/05/23 18:18 101 H 98 06/05/23 18:13 102 H 93 06/05/23 18:08 108 H 96 06/05/23 18:06 103 H 133/71 06/05/23 18:03 101 H 96 06/05/23 18:02 101 H 94 06/05/23 17:58 103 H 98 06/05/23 17:57 100 H 94 06/05/23 17:53 104 H 95 06/05/23 17:51 94 06/05/23 17:51 103 H 06/05/23 17:51 99 H 137/72 06/05/23 17:48 99 H 96 06/05/23 17:45 100 H 93 06/05/23 17:43 101 H 96 06/05/23 17:38 97 H 95 06/05/23 17:37 100 H 137/75 94 06/05/23 17:33 104 H 96 06/05/23 17:28 103 H 91 06/05/23 17:26 101 H 93 06/05/23 17:23 100 H 93 06/05/23 17:21 101 H 147/84 H 06/05/23 17:20 100 H 94 06/05/23 17:18 106 H 95 06/05/23 17:14 109 H 94 06/05/23 17:13 105 H 95 06/05/23 17:09 109 H 94 06/05/23 17:08 104 H 95 06/05/23 17:06 108 H 146/86 H 06/05/23 17:04 101 H 94 06/05/23 17:03 102 H 94 06/05/23 16:58 101 H 96 06/05/23 16:57 103 H 94 06/05/23 16:53 101 H 96 06/05/23 16:51 109 H 140/85 06/05/23 16:49 104 H 94 06/05/23 16:48 98 H 97 06/05/23 16:43 104 H 97 06/05/23 16:42 104 H 94 06/05/23 16:38 106 H 97 06/05/23 16:36 100 H 140/80 06/05/23 16:33 105 H 96 06/05/23 16:28 103 H 95 06/05/23 16:23 103 H 95 06/05/23 16:22 101 H 147/84 H 06/05/23 16:18 103 H 96 06/05/23 16:13 100 H 97 06/05/23 16:08 99 H 96 06/05/23 16:06 95 H 169/89 H 06/05/23 16:03 103 H 97 06/05/23 16:02 36.9 C 06/05/23 16:02 16 06/05/23 16:02 94 H 93 06/05/23 15:58 95 H 95 06/05/23 15:53 94 H 97 06/05/23 15:51 90 153/83 H 06/05/23 15:48 98 H 96 06/05/23 15:43 96 H 97 06/05/23 15:38 95 H 97 06/05/23 15:36 94 H 156/87 H 06/05/23 15:33 95 H 96 06/05/23 15:28 97 H 96 06/05/23 15:23 92 H 96 06/05/23 15:21 90 153/81 H 06/05/23 15:18 96 06/05/23 15:18 97 H 06/05/23 15:18 94 H 94 06/05/23 15:13 93 H 98 06/05/23 15:08 95 H 97 06/05/23 15:06 93 H 163/87 H 06/05/23 15:03 96 H 98 06/05/23 14:58 97 H 96 06/05/23 14:53 92 H 98 06/05/23 14:52 95 H 155/85 H 06/05/23 14:48 93 H 96 06/05/23 14:43 93 H 98 06/05/23 14:38 94 H 98 06/05/23 14:36 90 139/78 06/05/23 14:33 98 H 95 06/05/23 14:28 92 H 99 06/05/23 14:23 101 H 98 06/05/23 14:21 92 H 148/87 H 06/05/23 14:18 96 H 98 06/05/23 14:13 99 H 99 06/05/23 14:09 99 H 94 06/05/23 14:08 96 H 96 06/05/23 14:06 93 H 146/82 H 06/05/23 14:05 16 06/05/23 14:04 98 H 94 06/05/23 14:03 93 H 95 06/05/23 13:58 96 H 96 06/05/23 13:53 98 06/05/23 13:53 101 H 06/05/23 13:53 105 H 93 06/05/23 13:52 100 H 153/83 H 06/05/23 13:48 99 H 95 06/05/23 13:43 100 H 96 06/05/23 13:41 95 H 94 06/05/23 13:38 102 H 95 06/05/23 13:37 94 H 146/80 H 06/05/23 13:33 103 H 96 06/05/23 13:28 95 H 96 06/05/23 13:23 93 H 98 06/05/23 13:21 95 H 148/79 H 06/05/23 13:18 91 H 95 06/05/23 13:13 95 H 96 06/05/23 13:08 93 H 97 06/05/23 13:06 90 155/84 H 06/05/23 13:05 36.8 C 06/05/23 13:04 16 06/05/23 13:03 91 H 98 06/05/23 12:58 99 H 99 06/05/23 12:53 92 H 98 06/05/23 12:51 87 154/80 H 06/05/23 12:48 93 H 95 06/05/23 12:43 93 H 97 06/05/23 12:38 91 H 96 06/05/23 12:36 93 H 148/76 H 94 06/05/23 12:33 94 H 98 06/05/23 12:28 87 98 06/05/23 12:23 90 96 06/05/23 12:21 81 144/72 H 06/05/23 12:18 86 97 06/05/23 12:13 90 96 06/05/23 12:08 86 97 06/05/23 12:06 90 149/80 H 06/05/23 12:03 93 H 98 Pain Intensity Bilateral Head: Pain Intensity: 4 Bilateral Abdomen: Pain Intensity: 4 Bilateral Back: Pain Intensity: 5 Transfer of Care Handoff Completed per policy Notes Mental Status: alert / awake / arousable Nausea / Vomiting: adequately controlled Pain: adequately controlled Airway Patency, RR, SpO2: stable & adequate BP & HR: stable & adequate Hydration State: stable & adequate Anesthetic Complications: no major complications apparent
--- NOTE | 2023-06-06 12:02 | Anesthesia Procedure Note ---
Date of Service June 06, 2023 Anesthesia Post Epidural Note Vital Signs Vital Signs: Temp Pulse Resp BP Pulse Ox 36.6 C 78 14 98/53 L 82 L 06/06/23 11:52 06/06/23 12:00 06/06/23 11:52 06/06/23 11:56 06/06/23 12:00 Pain Intensity Bilateral Head: Pain Intensity: 4 Bilateral Abdomen: Pain Intensity: 4 Bilateral Back: Pain Intensity: 5 Notes Mental Status: alert / awake / arousable Nausea / Vomiting: adequately controlled Pain: adequately controlled Airway Patency, RR, SpO2: stable & adequate BP & HR: stable & adequate Hydration State: stable & adequate Neuraxial Anesthesia: was administered and sensory block is resolving Anesthetic Complications: no major complications apparent and Pt Satisfied with anesthetic care Epidural: Removed without complications and With tip intact
[2023-06-06] MEDS ORDERED: MAGNESIUM HYDROXIDE SUSP 30 ML UDC PO PRN (12:07)
[2023-06-06] MEDS ORDERED: SENNA 8.6 MG TAB PO PRN (12:07)
[2023-06-06] MEDS ORDERED: BENZOCAINE 20% SPRY 85 APPLN/85 GM CAN EXT PRN (12:07)
[2023-06-06] MEDS ORDERED: HYDROCORTISONE ACETATE 25 MG SUPP PR PRN (12:07)
[2023-06-06] MEDS ORDERED: DC INTRASPINAL MORPHINE SCH (12:15)
[2023-06-06] MEDS ORDERED: NO NARCOTICS OR SEDATIVES SCH (12:15)
[2023-06-06] MEDS: AZITHROMYCIN 500 MG in DEXTROSE 5% 250 ML IV SCH (13:03)
[2023-06-06] MEDS: MoRPHine SULFATE PF 1 MG/ML 10 ML AMP/VIAL INT SPINAL ONE (13:05)
[2023-06-06] MEDS: SIMETHICONE 80 MG CHEW PO SCH (13:31)
[2023-06-06] MEDS ORDERED: SODIUM CHLORIDE 0.9% 250 ML IV PRN ×3 (13:58→14:33)
[2023-06-06] MEDS: OXYTOCIN 40 UNITS in LACTATED RINGER'S 1,000 ML IV SCH (14:19)
[2023-06-06] MEDS: miSOPROStoL 200 MCG TAB PR ONE (14:26)
--- NOTE | 2023-06-06 14:40 | Obstetrical Progress Note ---
Date of Service June 06, 2023 Assessment & Plan (1) hemorrhage: Plan: Called to assess patient at 1:48 PM she had a significant increase in her vaginal bleeding. Rapidly came to the bedside Pitocin was running magnesium was running I assessed her she had several clots in the uterus bimanual exam was performed vaginally and abdominally and was able to evacuate some clots initially I attempted to place the Farzana device however a large clot prevented it from functioning J-tube was removed and then I was actually able to express the large clot which was over a fist sized. Bleeding was then still trickling somewhat at that stage I alerted the operating room that we may need to head back there for exam under anesthesia and D&C. At this stage though I had gotten significantly more clots out and the bleeding started to decrease I did evaluate for any lacerations during the bimanual exam and there appeared to be none. Uterus tone improved substantially we ordered higher dose 40 units and a liter instead of 20 units and a liter Pitocin additionally Cytotec 800 mcg rectally was placed. I have held off on Hemabate as the patient does have a hypertensive issue as well although currently her blood pressures are in the normal range. Estimated blood loss afterwards was 1900 mL losses during the were 700 mL estimated Because of the significant losses and the patient feeling symptomatic with an active bleeding situation we will transfuse 2 units of packed red blood cells because of ankle examination as well placed patient on Ancef for 24 hours. Evaluation after evacuation of the clots while having the OR team ready revealed that the bleeding had stopped significantly. At this stage we will watch the patient very carefully I will hold off on her magnesium right now as her bleeding is in the normal range and I suspect this is bleeding related to uterine tone due to long labor process Pitocin and magnesium accentuating the lack of uterine tone. Clearly she still may need to go to the operating room if the bleeding increases at this stage we will hold off on that plan no specifically because her bleeding has improved with conservative measures of evacuation of clot bimanual exam and rectal Cytotec at the bedside. This was fully explained to her partner and the patient who understood well patient tolerated the exams well Admission and Anticipated Discharge Date Admission Date: June 05, 2023 Results & Data Vital Signs (Past 12 Hours) Vital Signs Temp Pulse Resp BP Pulse Ox O2 Del Method 06/06/23 14:24 86 124/65 06/06/23 14:07 89 96 06/06/23 14:05 95 H 131/64 06/06/23 14:02 86 94 06/06/23 13:59 86 132/65 06/06/23 13:57 81 97 06/06/23 13:52 83 95 06/06/23 13:51 83 129/87 06/06/23 13:49 122 H 131/82 06/06/23 13:47 82 95 06/06/23 13:42 90 97 06/06/23 13:37 93 H 95 06/06/23 13:32 89 95 06/06/23 13:27 79 94 06/06/23 13:26 87 137/70 06/06/23 13:25 16 06/06/23 13:22 91 H 96 06/06/23 13:17 85 97 06/06/23 13:12 83 95 06/06/23 13:07 87 96 06/06/23 13:02 81 93 06/06/23 12:57 81 95 06/06/23 12:55 16 06/06/23 12:55 98.6 F 16 Room Air 06/06/23 12:55 83 129/67 06/06/23 12:52 82 96 06/06/23 12:47 79 95 06/06/23 12:42 81 93 06/06/23 12:40 16 Room Air 06/06/23 12:37 84 127/60 96 06/06/23 12:32 82 94 06/06/23 12:27 80 95 06/06/23 12:25 16 06/06/23 12:22 79 94 06/06/23 12:21 78 103/58 L 06/06/23 12:17 81 96 06/06/23 12:12 77 95 06/06/23 12:10 16 Room Air 06/06/23 12:07 77 102/54 L 94 06/06/23 12:02 75 96 06/06/23 12:00 78 82 L 06/06/23 11:57 75 95 06/06/23 11:56 77 98/53 L 06/06/23 11:53 82 92/51 L 06/06/23 11:52 14 06/06/23 11:52 97.9 F 14 06/06/23 11:52 97 06/06/23 11:52 82 06/06/23 11:52 76 80 L 06/06/23 10:39 111 H 94 06/06/23 10:34 123 H 137/77 94 06/06/23 10:29 102 H 94 06/06/23 10:24 105 H 96 06/06/23 10:20 110 H 136/71 06/06/23 10:19 109 H 94 06/06/23 10:14 108 H 94 06/06/23 10:09 104 H 96 06/06/23 10:04 106 H 130/68 98 06/06/23 09:59 102 H 96 06/06/23 09:54 105 H 97 06/06/23 09:50 94 H 89 L 06/06/23 09:49 89 128/62 96 06/06/23 09:44 92 H 93 06/06/23 09:39 94 H 94 06/06/23 09:34 103 H 133/75 92 06/06/23 09:30 16 06/06/23 09:30 16 06/06/23 09:30 98.1 F 16 06/06/23 09:29 105 H 95 06/06/23 09:24 100 H 91 06/06/23 09:23 102 H 88 L 06/06/23 09:21 99 H 128/72 06/06/23 09:19 100 H 94 06/06/23 09:14 101 H 93 06/06/23 09:09 105 H 97 06/06/23 09:04 105 H 136/71 95 06/06/23 08:59 110 H 97 06/06/23 08:54 106 H 97 06/06/23 08:50 102 H 135/73 06/06/23 08:49 101 H 94 06/06/23 08:44 102 H 94 06/06/23 08:39 108 H 95 06/06/23 08:36 16 06/06/23 08:36 16 06/06/23 08:35 101 H 128/59 L 06/06/23 08:34 108 H 94 06/06/23 08:29 109 H 96 06/06/23 08:24 96 H 92 06/06/23 08:22 94 H 88 L 06/06/23 08:19 96 H 131/67 94 06/06/23 08:17 97 H 89 L 06/06/23 08:14 102 H 95 06/06/23 08:12 102 H 86 L 06/06/23 08:09 97 H 92 06/06/23 08:06 99 H 88 L 06/06/23 08:04 105 H 132/66 95 06/06/23 07:59 99 H 94 06/06/23 07:54 104 H 94 06/06/23 07:49 98 H 138/73 94 06/06/23 07:48 97 H 88 L 06/06/23 07:44 95 H 94 06/06/23 07:41 95 H 88 L 06/06/23 07:39 99 H 96 06/06/23 07:34 108 H 138/80 97 06/06/23 07:30 18 06/06/23 07:29 103 H 96 06/06/23 07:24 100 H 98 06/06/23 07:19 101 H 129/67 94 06/06/23 07:15 98.1 F 06/06/23 07:14 104 H 95 06/06/23 07:09 102 H 96 06/06/23 07:08 103 H 93 06/06/23 07:05 98 H 142/76 H 06/06/23 07:04 102 H 96 06/06/23 07:02 105 H 94 06/06/23 06:59 106 H 95 06/06/23 06:56 105 H 94 06/06/23 06:54 104 H 94 06/06/23 06:51 107 H 94 06/06/23 06:49 101 H 133/71 94 06/06/23 06:46 18 06/06/23 06:44 106 H 97 06/06/23 06:39 115 H 97 06/06/23 06:34 94 06/06/23 06:34 103 H 06/06/23 06:34 101 H 137/75 94 06/06/23 06:29 94 06/06/23 06:29 99 H 06/06/23 06:29 102 H 93 06/06/23 06:24 102 H 92 06/06/23 06:23 104 H 93 06/06/23 06:19 102 H 140/80 93 06/06/23 06:16 101 H 93 06/06/23 06:14 102 H 93 06/06/23 06:11 101 H 93 06/06/23 06:09 102 H 96 06/06/23 06:06 106 H 93 06/06/23 06:05 101 H 131/80 06/06/23 06:04 101 H 96 06/06/23 05:59 95 06/06/23 05:59 101 H 06/06/23 05:59 100 H 94 06/06/23 05:54 100 H 97 06/06/23 05:52 103 H 94 06/06/23 05:50 98 H 140/76 06/06/23 05:49 98 H 95 06/06/23 05:44 97 H 94 06/06/23 05:43 95 H 92 06/06/23 05:39 97 H 94 06/06/23 05:36 97 H 93 06/06/23 05:34 94 H 111/56 L 96 06/06/23 05:31 18 06/06/23 05:31 18 06/06/23 05:29 92 06/06/23 05:29 96 H 06/06/23 05:29 95 H 92 06/06/23 05:24 92 06/06/23 05:24 100 H 06/06/23 05:24 96 H 93 06/06/23 05:19 96 H 111/56 L 93 06/06/23 05:17 100 H 92 06/06/23 05:14 96 H 94 06/06/23 05:11 96 H 94 06/06/23 05:09 97 H 94 06/06/23 05:04 102 H 112/55 L 95 06/06/23 04:59 98.1 F 106 H 18 95 06/06/23 04:56 108 H 94 06/06/23 04:54 104 H 96 06/06/23 04:51 101 H 109/56 L 06/06/23 04:50 103 H 94 06/06/23 04:49 105 H 96 06/06/23 04:45 104 H 94 06/06/23 04:44 101 H 96 06/06/23 04:39 101 H 96 06/06/23 04:35 101 H 94 06/06/23 04:34 100 H 132/65 90 06/06/23 04:30 99 H 94 06/06/23 04:29 100 H 91 06/06/23 04:24 92 06/06/23 04:24 99 H 06/06/23 04:24 97 H 92 06/06/23 04:20 18 06/06/23 04:20 93 H 127/66 06/06/23 04:19 98 H 94 06/06/23 04:18 101 H 94 06/06/23 04:14 100 H 95 06/06/23 04:12 113 H 94 06/06/23 04:09 102 H 96 06/06/23 04:03 109 H 97 06/06/23 04:00 18 06/06/23 04:00 18 06/06/23 03:58 91 H 94 06/06/23 03:53 99 H 89 L 06/06/23 03:51 99 H 92 06/06/23 03:49 98 H 132/62 06/06/23 03:48 99 H 94 06/06/23 03:46 103 H 94 06/06/23 03:43 105 H 97 06/06/23 03:38 94 H 90 06/06/23 03:37 94 H 94 06/06/23 03:35 95 H 127/61 06/06/23 03:33 98 H 89 L 06/06/23 03:30 18 06/06/23 03:30 97 H 16 92 06/06/23 03:28 97 H 89 L 06/06/23 03:24 97 H 94 06/06/23 03:23 96 H 95 06/06/23 03:21 100 H 129/75 06/06/23 03:18 104 H 96 06/06/23 03:13 92 06/06/23 03:13 92 H 06/06/23 03:13 95 H 91 06/06/23 03:08 98 H 89 L 06/06/23 03:06 90 94 06/06/23 03:04 95 H 132/60 06/06/23 03:03 95 H 90 06/06/23 03:01 91 H 93 06/06/23 02:58 94 H 90 06/06/23 02:55 90 93 06/06/23 02:53 91 H 91 06/06/23 02:49 89 132/59 L 06/06/23 02:48 90 91 06/06/23 02:47 92 H 92 06/06/23 02:43 92 H 90 06/06/23 02:40 92 H 92 06/06/23 02:38 89 97 PG Care Time/CCT Total # of Minutes Spent Total Time Spent with Patient: Total time spent is greater than 50% in coordination of care (as documented) at patient's floor/unit and/or counseling patient: Coding Level of Care Code None Diagnoses hemorrhage O72.1
[2023-06-06 15:10] LABS: Basophils # (auto) 0.03 K/uL (0.00-0.20); Basophils % (auto) 0.2 %; Eosinophils # (auto) 0.01 K/uL (0.00-0.50); Eosinophils % (auto) 0.1 %; Hematocrit (blood only) 28.1 % (37.0-47.0); Immature Granulocytes # (auto) 0.06 K/uL (0.01-0.20); Immature Granulocytes % (auto) 0.4 %; Lymphocytes # (auto) 1.13 K/uL (1.20-3.40); Lymphocytes % (auto) 8.3 %; Mean Corpuscular Hemoglobin 26.5 pg (25.0-34.0); Mean Corpuscular Volume 82.6 fL (80.0-100.0); Mean Platelet Volume 10.6 fL (9.4-12.4); Monocytes % (auto) 4.4 %; Neutrophils # (auto) 11.71 K/uL (1.40-6.50); Neutrophils % (auto) 86.6 %; Platelet Count 274 K/uL (130-400); RDW Coefficient of Variation 14.8 % (11.5-14.5); RDW Standard Deviation 44.3 fL (36.4-46.3); White Blood Count 13.54 K/ul (4.8-10.8)
[2023-06-06] MEDS ORDERED: PROPOFOL IV EMULSION 10 MG/ML 20 ML VIAL IV ONE ×4 (15:17→15:47)
[2023-06-06] MEDS ORDERED: SUCCINYLCHOLINE CHLORIDE 20 MG/ML 10 ML VIAL IV ONE ×13 (15:17→15:32)
[2023-06-06] MEDS ORDERED: LIDOCAINE 2% MPF LOCAL 5 ML VIAL ONE (15:17)
[2023-06-06] MEDS ORDERED: fentaNYL citrate PF 100 MCG/2 ML VIAL ONE (15:18)
[2023-06-06 15:25] LABS: INR 0.9 (0.9-1.1)
[2023-06-06] MEDS ORDERED: ceFAZolin 330 MG/ML 1 GM VIAL ONE (15:30)
[2023-06-06] MEDS: CARBOPROST TROMETHAMINE 250 MCG/ML AMPUL IM ONE (15:32)
[2023-06-06] MEDS ORDERED: SUGAMMADEX SODIUM 200 MG/2 ML VIAL IV ONE (15:40)
[2023-06-06] MEDS ORDERED: TRANEXAMIC ACID / 0.7% NACL 1000MG/100ML BAG IV ONE (15:41)
[2023-06-06] MEDS ORDERED: Nursing to Pharmacy Communication SCH (15:45)
--- NOTE | 2023-06-06 15:54 | Operative Report ---
PG Post Operative Report Pre & Post Diagnosis Operation Date: 06/06/23 15:10 <No data on this case meets the specified criteria> hemorrhage I identified the patient and participated in the time-out.: Yes Procedure Operation Date: 06/06/23 15:10 <No data on this case meets the specified criteria> Examination under anesthesia D&C injection of Hemabate into the uterus placement of [place]ana device Surgeon Daniella Howard MD, FACOG Human Resource Officer Dr. Coffey Estimated Blood Loss 70 Findings Consistent with Post-Op Diagnosis Specimens none Description of Procedure Patient had responded to the measures of Pitocin and stopping the magnesium she had improved bleeding for significantly for 30 minutes but then bleeding increased again the decision was made to go to the operating room she was given Ancef given a general anesthetic prepped and draped in dorsolithotomy position in [facility] bladder was being drained with a Geronimo catheter we were able to manually palpate into the uterus there was no separation of the uterine scar there were some clots that were freed from the inside of the uterus additionally a brief round of curettage was performed as well there were no large clots and certainly no placenta. Careful inspection was given for lacerations I could find none in the cervix or vagina. We had already given rectal Cytotec a decision to give TXA was also given The [place] device was then deployed with 120 cc into the balloon and then placed to wall suction minimal vaginal blood from this once it was hooked up it was checked for position and was appropriately positioned. We observed for 10 minutes afterwards with placement of the [place]ana and the hemostasis was excellent uterus was palpated and was firm and was well below umbilicus. I felt blood loss was probably 70 cc for the procedure and there was 196 cc weight prior on the hemorrhage patient was receiving IV packed red cells she is starting 1 unit will receive a second unit Note, Dr. Coffey and I both examined the uterus for more clot and felt it was empty of this. Sponge and instrument counts correct I attest to the content of the Intraoperative Record and any orders documented therein. Any exceptions are noted below. OB Procedure Charges [id number] Bakri ([place]) [id number] PP Curettage
[2023-06-06] MEDS: LACTATED RINGER'S 1,000 ML IV SCH (16:23)
[2023-06-06] MEDS: OXYTOCIN 20 UNITS/LR 1,002 ML IV SCH (16:23)
[2023-06-06] MEDS: SODIUM CHLORIDE 0.9% 1,000 ML IV SCH (16:24)
[2023-06-06] MEDS: DIPHTHER/TETAN/PERTUS Vaccine (Tdap, Adol/Adult) 0.5mL IM ONE (16:25)
[2023-06-06] MEDS: ceFAZolin 2000MG 2,000 MG/15 ML SYR IV STA (16:25)
[2023-06-06] MEDS: MoRPHine SULFATE 2 MG/ML CARP IV PRN (16:38)
--- NOTE | 2023-06-06 16:41 | Anesthesiology Progress Note ---
Date of Service June 06, 2023 Anesthesia Post Procedure Vital Signs Vital Signs: Temp Pulse Resp BP Pulse Ox O2 Del Method 06/06/23 16:36 84 127/64 06/06/23 16:35 80 90 06/06/23 16:30 84 95 06/06/23 16:26 89 128/67 06/06/23 16:25 89 92 06/06/23 16:24 87 94 06/06/23 16:20 85 99 06/06/23 16:16 85 123/67 06/06/23 16:15 84 98 06/06/23 16:10 91 H 100 06/06/23 16:06 90 118/63 06/06/23 16:05 89 100 06/06/23 15:07 111 H 97 06/06/23 15:02 106 H 96 06/06/23 14:57 105 H 124/64 96 06/06/23 14:52 93 H 96 06/06/23 14:37 16 06/06/23 14:37 36.7 C 16 06/06/23 14:24 86 124/65 06/06/23 14:07 89 96 06/06/23 14:05 95 H 131/64 06/06/23 14:02 86 94 06/06/23 13:59 86 132/65 06/06/23 13:57 81 97 06/06/23 13:52 83 95 06/06/23 13:51 83 129/87 06/06/23 13:49 122 H 131/82 06/06/23 13:47 82 95 06/06/23 13:42 90 97 06/06/23 13:37 93 H 95 06/06/23 13:32 89 95 06/06/23 13:27 79 94 06/06/23 13:26 87 137/70 06/06/23 13:25 16 06/06/23 13:22 91 H 96 06/06/23 13:17 85 97 06/06/23 13:12 83 95 06/06/23 13:07 87 96 06/06/23 13:02 81 93 06/06/23 12:57 81 95 06/06/23 12:55 16 06/06/23 12:55 37.0 C 16 Room Air 06/06/23 12:55 83 129/67 06/06/23 12:52 82 96 06/06/23 12:47 79 95 06/06/23 12:42 81 93 06/06/23 12:40 16 Room Air 06/06/23 12:37 84 127/60 96 06/06/23 12:32 82 94 06/06/23 12:27 80 95 06/06/23 12:25 16 06/06/23 12:22 79 94 06/06/23 12:21 78 103/58 L 06/06/23 12:17 81 96 06/06/23 12:12 77 95 06/06/23 12:10 16 Room Air 06/06/23 12:07 77 102/54 L 94 06/06/23 12:02 75 96 06/06/23 12:00 78 82 L 06/06/23 11:57 75 95 06/06/23 11:56 77 98/53 L 06/06/23 11:53 82 92/51 L 06/06/23 11:52 14 06/06/23 11:52 36.6 C 14 06/06/23 11:52 97 06/06/23 11:52 82 06/06/23 11:52 76 80 L 06/06/23 10:39 111 H 94 06/06/23 10:34 123 H 137/77 94 06/06/23 10:29 102 H 94 06/06/23 10:24 105 H 96 06/06/23 10:20 110 H 136/71 06/06/23 10:19 109 H 94 06/06/23 10:14 108 H 94 06/06/23 10:09 104 H 96 06/06/23 10:04 106 H 130/68 98 06/06/23 09:59 102 H 96 06/06/23 09:54 105 H 97 06/06/23 09:50 94 H 89 L 06/06/23 09:49 89 128/62 96 06/06/23 09:44 92 H 93 06/06/23 09:39 94 H 94 06/06/23 09:34 103 H 133/75 92 06/06/23 09:30 16 06/06/23 09:30 16 06/06/23 09:30 36.7 C 16 06/06/23 09:29 105 H 95 06/06/23 09:24 100 H 91 06/06/23 09:23 102 H 88 L 03/28/24 09:21 99 H 128/72 06/06/23 09:19 100 H 94 06/06/23 09:14 101 H 93 06/06/23 09:09 105 H 97 06/06/23 09:04 105 H 136/71 95 06/06/23 08:59 110 H 97 06/06/23 08:54 106 H 97 06/06/23 08:50 102 H 135/73 06/06/23 08:49 101 H 94 06/06/23 08:44 102 H 94 06/06/23 08:39 108 H 95 06/06/23 08:36 16 06/06/23 08:36 16 06/06/23 08:35 101 H 128/59 L 06/06/23 08:34 108 H 94 06/06/23 08:29 109 H 96 06/06/23 08:24 96 H 92 06/06/23 08:22 94 H 88 L 06/06/23 08:19 96 H 131/67 94 06/06/23 08:17 97 H 89 L 06/06/23 08:14 102 H 95 06/06/23 08:12 102 H 86 L 06/06/23 08:09 97 H 92 06/06/23 08:06 99 H 88 L 06/06/23 08:04 105 H 132/66 95 06/06/23 07:59 99 H 94 06/06/23 07:54 104 H 94 06/06/23 07:49 98 H 138/73 94 06/06/23 07:48 97 H 88 L 06/06/23 07:44 95 H 94 06/06/23 07:41 95 H 88 L 06/06/23 07:39 99 H 96 06/06/23 07:34 108 H 138/80 97 06/06/23 07:30 18 06/06/23 07:29 103 H 96 06/06/23 07:24 100 H 98 06/06/23 07:19 101 H 129/67 94 06/06/23 07:15 36.7 C 06/06/23 07:14 104 H 95 06/06/23 07:09 102 H 96 06/06/23 07:08 103 H 93 06/06/23 07:05 98 H 142/76 H 06/06/23 07:04 102 H 96 06/06/23 07:02 105 H 94 06/06/23 06:59 106 H 95 06/06/23 06:56 105 H 94 06/06/23 06:54 104 H 94 06/06/23 06:51 107 H 94 06/06/23 06:49 101 H 133/71 94 06/06/23 06:46 18 06/06/23 06:44 106 H 97 06/06/23 06:39 115 H 97 06/06/23 06:34 94 06/06/23 06:34 103 H 06/06/23 06:34 101 H 137/75 94 06/06/23 06:29 94 06/06/23 06:29 99 H 06/06/23 06:29 102 H 93 06/06/23 06:24 102 H 92 06/06/23 06:23 104 H 93 06/06/23 06:19 102 H 140/80 93 06/06/23 06:16 101 H 93 06/06/23 06:14 102 H 93 06/06/23 06:11 101 H 93 06/06/23 06:09 102 H 96 06/06/23 06:06 106 H 93 06/06/23 06:05 101 H 131/80 06/06/23 06:04 101 H 96 06/06/23 05:59 95 06/06/23 05:59 101 H 06/06/23 05:59 100 H 94 06/06/23 05:54 100 H 97 06/06/23 05:52 103 H 94 06/06/23 05:50 98 H 140/76 06/06/23 05:49 98 H 95 06/06/23 05:44 97 H 94 06/06/23 05:43 95 H 92 06/06/23 05:39 97 H 94 06/06/23 05:36 97 H 93 06/06/23 05:34 94 H 111/56 L 96 06/06/23 05:31 18 06/06/23 05:31 18 06/06/23 05:29 92 06/06/23 05:29 96 H 06/06/23 05:29 95 H 92 06/06/23 05:24 92 06/06/23 05:24 100 H 06/06/23 05:24 96 H 93 06/06/23 05:19 96 H 111/56 L 93 06/06/23 05:17 100 H 92 06/06/23 05:14 96 H 94 06/06/23 05:11 96 H 94 06/06/23 05:09 97 H 94 06/06/23 05:04 102 H 112/55 L 95 06/06/23 04:59 36.7 C 106 H 18 95 06/06/23 04:56 108 H 94 06/06/23 04:54 104 H 96 06/06/23 04:51 101 H 109/56 L 06/06/23 04:50 103 H 94 06/06/23 04:49 105 H 96 06/06/23 04:45 104 H 94 06/06/23 04:44 101 H 96 06/06/23 04:39 101 H 96 06/06/23 04:35 101 H 94 06/06/23 04:34 100 H 132/65 90 06/06/23 04:30 99 H 94 06/06/23 04:29 100 H 91 06/06/23 04:24 92 06/06/23 04:24 99 H 06/06/23 04:24 97 H 92 06/06/23 04:20 18 06/06/23 04:20 93 H 127/66 06/06/23 04:19 98 H 94 06/06/23 04:18 101 H 94 06/06/23 04:14 100 H 95 06/06/23 04:12 113 H 94 06/06/23 04:09 102 H 96 06/06/23 04:03 109 H 97 06/06/23 04:00 18 06/06/23 04:00 18 06/06/23 03:58 91 H 94 06/06/23 03:53 99 H 89 L 06/06/23 03:51 99 H 92 06/06/23 03:49 98 H 132/62 06/06/23 03:48 99 H 94 06/06/23 03:46 103 H 94 06/06/23 03:43 105 H 97 06/06/23 03:38 94 H 90 06/06/23 03:37 94 H 94 06/06/23 03:35 95 H 127/61 06/06/23 03:33 98 H 89 L 06/06/23 03:30 18 06/06/23 03:30 97 H 16 92 06/06/23 03:28 97 H 89 L 06/06/23 03:24 97 H 94 06/06/23 03:23 96 H 95 06/06/23 03:21 100 H 129/75 06/06/23 03:18 104 H 96 06/06/23 03:13 92 06/06/23 03:13 92 H 06/06/23 03:13 95 H 91 06/06/23 03:08 98 H 89 L 06/06/23 03:06 90 94 06/06/23 03:04 95 H 132/60 06/06/23 03:03 95 H 90 06/06/23 03:01 91 H 93 06/06/23 02:58 94 H 90 06/06/23 02:55 90 93 06/06/23 02:53 91 H 91 06/06/23 02:49 89 132/59 L 06/06/23 02:48 90 91 06/06/23 02:47 92 H 92 06/06/23 02:43 92 H 90 06/06/23 02:40 92 H 92 06/06/23 02:38 89 97 06/06/23 02:35 94 H 130/67 06/06/23 02:33 94 H 97 06/06/23 02:31 103 H 92 06/06/23 02:29 18 06/06/23 02:29 18 06/06/23 02:28 100 H 97 06/06/23 02:25 92 H 92 06/06/23 02:23 94 H 91 06/06/23 02:19 92 H 132/62 94 06/06/23 02:18 93 H 91 06/06/23 02:15 18 06/06/23 02:15 36.7 C 18 06/06/23 02:13 93 H 90 06/06/23 02:11 90 91 06/06/23 02:08 93 H 89 L 06/06/23 02:04 97 H 130/63 06/06/23 02:03 91 H 92 06/06/23 02:01 89 92 06/06/23 01:58 87 89 L 06/06/23 01:54 88 92 06/06/23 01:53 95 H 94 06/06/23 01:49 85 127/59 L 06/06/23 01:48 91 H 91 06/06/23 01:43 92 H 92 06/06/23 01:42 93 H 94 06/06/23 01:38 97 H 96 06/06/23 01:36 99 H 94 06/06/23 01:35 95 H 124/59 L 06/06/23 01:33 109 H 96 06/06/23 01:31 18 06/06/23 01:31 18 06/06/23 01:29 90 91 06/06/23 01:28 87 91 06/06/23 01:23 87 85 L 06/06/23 01:21 87 91 06/06/23 01:19 95 H 119/60 06/06/23 01:18 89 91 06/06/23 01:15 82 92 06/06/23 01:13 88 90 06/06/23 01:09 85 92 06/06/23 01:08 90 93 06/06/23 01:05 99 H 124/64 06/06/23 01:04 95 H 93 06/06/23 01:03 96 06/06/23 01:03 91 H 06/06/23 01:03 91 H 125/60 06/06/23 01:01 83 18 121/58 L 06/06/23 00:59 86 131/60 06/06/23 00:58 92 06/06/23 00:58 87 06/06/23 00:58 88 94 06/06/23 00:57 86 119/58 L 06/06/23 00:55 90 18 123/60 06/06/23 00:53 97 06/06/23 00:53 87 06/06/23 00:53 88 112/58 L 06/06/23 00:51 94 06/06/23 00:51 98 H 06/06/23 00:51 96 H 125/62 06/06/23 00:50 18 06/06/23 00:50 18 06/06/23 00:49 98 H 128/60 06/06/23 00:48 100 H 98 06/06/23 00:47 96 H 122/57 L 06/06/23 00:45 101 H 18 128/65 06/06/23 00:43 103 H 134/70 96 06/06/23 00:41 101 H 141/75 H 06/06/23 00:40 99 H 18 94 06/06/23 00:38 98 06/06/23 00:38 95 H 06/06/23 00:38 96 H 142/80 H 06/06/23 00:33 97 H 95 06/06/23 00:31 96 H 94 06/06/23 00:28 86 96 06/06/23 00:23 109 H 95 06/06/23 00:18 102 H 95 06/06/23 00:13 119 H 97 06/06/23 00:08 97 H 99 06/06/23 00:06 108 H 146/86 H 06/06/23 00:03 112 H 96 06/06/23 00:00 36.6 C 18 06/06/23 00:00 18 06/05/23 23:58 109 H 97 06/05/23 23:53 94 H 98 06/05/23 23:52 99 H 142/79 H 06/05/23 23:48 103 H 98 06/05/23 23:43 96 H 97 06/05/23 23:38 97 H 98 06/05/23 23:36 100 H 149/81 H 06/05/23 23:33 96 H 98 06/05/23 23:28 101 H 97 06/05/23 23:23 109 H 97 06/05/23 23:21 110 H 148/87 H 06/05/23 23:18 100 H 97 06/05/23 23:13 102 H 97 06/05/23 23:08 105 H 97 06/05/23 23:07 106 H 139/70 06/05/23 23:04 102 H 94 06/05/23 23:03 104 H 97 06/05/23 23:00 16 06/05/23 22:58 104 H 94 06/05/23 22:57 103 H 94 06/05/23 22:53 107 H 95 06/05/23 22:51 102 H 132/67 06/05/23 22:48 104 H 99 06/05/23 22:46 97 H 93 06/05/23 22:43 101 H 97 06/05/23 22:38 99 H 95 06/05/23 22:36 98 H 94 06/05/23 22:33 101 H 96 06/05/23 22:31 100 H 93 06/05/23 22:28 99 H 96 06/05/23 22:25 100 H 92 06/05/23 22:23 101 H 91 06/05/23 22:21 97 H 135/65 06/05/23 22:19 96 H 93 06/05/23 22:18 96 H 94 06/05/23 22:13 99 H 94 06/05/23 22:10 36.8 C 18 06/05/23 22:08 100 H 96 06/05/23 22:06 100 H 144/81 H 06/05/23 22:03 95 H 97 06/05/23 22:00 16 06/05/23 22:00 18 06/05/23 21:58 95 H 99 06/05/23 21:57 107 H 94 06/05/23 21:53 102 H 93 06/05/23 21:52 99 H 93 06/05/23 21:51 97 H 146/82 H 06/05/23 21:48 97 H 97 06/05/23 21:45 97 H 94 06/05/23 21:43 103 H 96 06/05/23 21:38 107 H 97 06/05/23 21:36 104 H 137/86 06/05/23 21:34 105 H 93 06/05/23 21:33 100 H 96 06/05/23 21:28 107 H 97 06/05/23 21:23 109 H 97 06/05/23 21:21 105 H 157/94 H 06/05/23 21:18 108 H 96 06/05/23 21:13 111 H 97 06/05/23 21:08 107 H 98 06/05/23 21:06 106 H 140/90 06/05/23 21:03 103 H 97 06/05/23 21:01 18 06/05/23 21:01 36.8 C 18 06/05/23 21:00 18 06/05/23 20:58 110 H 97 06/05/23 20:53 108 H 96 06/05/23 20:52 107 H 159/97 H 06/05/23 20:48 108 H 97 06/05/23 20:43 111 H 97 06/05/23 20:39 108 H 155/91 H 06/05/23 20:38 108 H 93 06/05/23 20:36 104 H 06/05/23 20:36 160/96 H 06/05/23 20:36 106 H 167/97 H 06/05/23 20:33 107 H 96 06/05/23 20:31 108 H 94 06/05/23 20:28 105 H 96 06/05/23 20:24 99 H 155/91 H 06/05/23 20:23 105 H 98 06/05/23 20:21 107 H 160/97 H 06/05/23 20:18 95 06/05/23 20:18 103 H 06/05/23 20:18 107 H 93 06/05/23 20:13 107 H 95 06/05/23 20:08 106 H 94 06/05/23 20:06 105 H 156/91 H 06/05/23 20:03 102 H 96 06/05/23 20:00 18 06/05/23 19:58 97 H 98 06/05/23 19:57 104 H 94 06/05/23 19:53 99 H 95 06/05/23 19:51 102 H 155/89 H 06/05/23 19:49 100 H 93 06/05/23 19:48 103 H 97 06/05/23 19:43 93 06/05/23 19:43 106 H 06/05/23 19:43 102 H 93 06/05/23 19:38 106 H 96 06/05/23 19:37 104 H 93 06/05/23 19:36 98 H 153/84 H 06/05/23 19:33 108 H 96 06/05/23 19:31 105 H 94 06/05/23 19:28 107 H 95 06/05/23 19:23 106 H 95 06/05/23 19:21 36.8 C 18 06/05/23 19:21 18 06/05/23 19:21 94 06/05/23 19:21 106 H 06/05/23 19:21 105 H 152/86 H 06/05/23 19:18 101 H 96 06/05/23 19:13 94 06/05/23 19:13 104 H 06/05/23 19:13 104 H 93 06/05/23 19:08 103 H 96 06/05/23 19:06 106 H 149/80 H 06/05/23 19:05 104 H 94 06/05/23 19:03 103 H 97 06/05/23 19:00 102 H 93 06/05/23 18:58 100 H 96 06/05/23 18:53 104 H 98 06/05/23 18:51 105 H 151/82 H 06/05/23 18:50 105 H 93 06/05/23 18:48 102 H 94 06/05/23 18:44 104 H 94 06/05/23 18:43 103 H 94 06/05/23 18:38 107 H 97 06/05/23 18:36 102 H 155/82 H 06/05/23 18:34 106 H 94 06/05/23 18:33 104 H 94 06/05/23 18:28 116 H 95 06/05/23 18:24 36.9 C 06/05/23 18:23 106 H 98 06/05/23 18:21 102 H 161/88 H 06/05/23 18:18 101 H 98 06/05/23 18:13 102 H 93 06/05/23 18:08 108 H 96 06/05/23 18:06 103 H 133/71 06/05/23 18:03 101 H 96 06/05/23 18:02 101 H 94 06/05/23 17:58 103 H 98 06/05/23 17:57 100 H 94 06/05/23 17:53 104 H 95 06/05/23 17:51 94 06/05/23 17:51 103 H 06/05/23 17:51 99 H 137/72 06/05/23 17:48 99 H 96 06/05/23 17:45 100 H 93 06/05/23 17:43 101 H 96 06/05/23 17:38 97 H 95 06/05/23 17:37 100 H 137/75 94 06/05/23 17:33 104 H 96 06/05/23 17:28 103 H 91 06/05/23 17:26 101 H 93 06/05/23 17:23 100 H 93 06/05/23 17:21 101 H 147/84 H 06/05/23 17:20 100 H 94 06/05/23 17:18 106 H 95 06/05/23 17:14 109 H 94 06/05/23 17:13 105 H 95 06/05/23 17:09 109 H 94 06/05/23 17:08 104 H 95 06/05/23 17:06 108 H 146/86 H 06/05/23 17:04 101 H 94 06/05/23 17:03 102 H 94 06/05/23 16:58 101 H 96 06/05/23 16:57 103 H 94 06/05/23 16:53 101 H 96 06/05/23 16:51 109 H 140/85 06/05/23 16:49 104 H 94 06/05/23 16:48 98 H 97 06/05/23 16:43 104 H 97 06/05/23 16:42 104 H 94 Pain Intensity Bilateral Head: Pain Intensity: 4 Bilateral Abdomen: Pain Intensity: 4 Bilateral Back: Pain Intensity: 5 Transfer of Care Handoff Completed per policy Notes Mental Status: alert / awake / arousable Patient Amnestic to Procedure: Yes Nausea / Vomiting: adequately controlled Pain: adequately controlled Airway Patency, RR, SpO2: stable & adequate BP & HR: stable & adequate Hydration State: stable & adequate Anesthetic Complications: no major complications apparent
[2023-06-06] MEDS: ACETAMINOPHEN 1,000 MG/100 ML VIAL IV STA (18:09)
[2023-06-06] MEDS: ceFAZolin 2000MG 2,000 MG/15 ML SYR IV SCH (18:28)
--- NOTE | 2023-06-06 19:11 | Obstetrical Progress Note ---
Date of Service June 06, 2023 Assessment & Plan Admission and Anticipated Discharge Date Admission Date: June 05, 2023 Subjective Bleeding has been under control she has received 2 units of packed red blood cells she does appear pale another CBC is set for 8 PM tonight she may require more blood transfusion as well after that we will assess at that time her jaded I did disconnect it was in for 3 hours on suction there is only darker older blood in the tubing and it is not collecting. The tubing was disconnected from suction I will leave the device in place for 30 minutes and then deflated the b alloon and then remove it from there Results & Data Vital Signs (Past 12 Hours) Vital Signs Temp Pulse Resp BP Pulse Ox O2 Del Method 06/06/23 19:06 96 06/06/23 19:06 95 H 06/06/23 19:01 97 06/06/23 19:01 90 06/06/23 18:56 98 06/06/23 18:56 88 06/06/23 18:51 92 H 95 06/06/23 18:46 89 124/70 96 06/06/23 18:45 97.9 F 98 H 16 124/70 98 06/06/23 18:41 94 H 96 06/06/23 18:36 87 121/59 L 96 06/06/23 18:31 90 98 06/06/23 18:26 90 132/71 97 06/06/23 18:21 94 H 96 06/06/23 18:16 88 06/06/23 18:16 90 124/68 95 06/06/23 18:15 98.2 F 89 16 124/68 96 06/06/23 18:11 92 H 97 06/06/23 18:06 16 Room Air 06/06/23 18:06 90 127/68 94 06/06/23 18:01 91 H 96 06/06/23 17:57 89 139/72 06/06/23 17:56 91 H 98 06/06/23 17:51 92 H 95 06/06/23 17:46 100 H 06/06/23 17:46 91 H 114/91 96 06/06/23 17:41 93 H 96 06/06/23 17:40 98.2 F 06/06/23 17:36 98 H 06/06/23 17:36 95 H 125/81 93 06/06/23 17:31 93 H 94 06/06/23 17:26 93 H 125/66 95 06/06/23 17:25 98.2 F 06/06/23 17:21 100 H 96 06/06/23 17:16 93 H 06/06/23 17:16 87 120/68 94 06/06/23 17:11 91 H 93 06/06/23 17:10 98.2 F 06/06/23 17:06 16 06/06/23 17:06 86 06/06/23 17:06 91 H 122/66 94 06/06/23 17:01 85 97 06/06/23 16:56 18 06/06/23 16:56 84 122/69 95 06/06/23 16:54 98.4 F 85 18 121/63 96 06/06/23 16:52 83 121/63 06/06/23 16:50 86 96 06/06/23 16:46 16 06/06/23 16:46 84 119/59 L 89 L 06/06/23 16:45 83 89 L 06/06/23 16:40 85 94 06/06/23 16:36 84 127/64 06/06/23 16:35 80 90 06/06/23 16:30 84 95 06/06/23 16:26 16 06/06/23 16:26 89 128/67 06/06/23 16:25 89 92 06/06/23 16:24 87 94 06/06/23 16:20 85 99 06/06/23 16:16 16 06/06/23 16:16 85 123/67 06/06/23 16:15 84 98 06/06/23 16:10 91 H 100 06/06/23 16:06 98.1 F 18 06/06/23 16:06 90 118/63 06/06/23 16:05 89 100 06/06/23 15:07 111 H 97 06/06/23 15:02 106 H 96 06/06/23 14:57 105 H 124/64 96 06/06/23 14:52 93 H 96 06/06/23 14:37 16 06/06/23 14:37 98.1 F 16 06/06/23 14:24 86 124/65 06/06/23 14:07 89 96 06/06/23 14:05 95 H 131/64 06/06/23 14:02 86 94 06/06/23 13:59 86 132/65 06/06/23 13:57 81 97 06/06/23 13:52 83 95 06/06/23 13:51 83 129/87 06/06/23 13:49 122 H 131/82 06/06/23 13:47 82 95 06/06/23 13:42 90 97 06/06/23 13:37 93 H 95 06/06/23 13:32 89 95 06/06/23 13:27 79 94 06/06/23 13:26 87 137/70 06/06/23 13:25 16 06/06/23 13:22 91 H 96 06/06/23 13:17 85 97 06/06/23 13:12 83 95 06/06/23 13:07 87 96 06/06/23 13:02 81 93 06/06/23 12:57 81 95 06/06/23 12:55 16 06/06/23 12:55 98.6 F 16 Room Air 06/06/23 12:55 83 129/67 06/06/23 12:52 82 96 06/06/23 12:47 79 95 06/06/23 12:42 81 93 06/06/23 12:40 16 Room Air 06/06/23 12:37 84 127/60 96 06/06/23 12:32 82 94 06/06/23 12:27 80 95 06/06/23 12:25 16 06/06/23 12:22 79 94 06/06/23 12:21 78 103/58 L 06/06/23 12:17 81 96 06/06/23 12:12 77 95 06/06/23 12:10 16 Room Air 06/06/23 12:07 77 102/54 L 94 06/06/23 12:02 75 96 06/06/23 12:00 78 82 L 06/06/23 11:57 75 95 06/06/23 11:56 77 98/53 L 06/06/23 11:53 82 92/51 L 06/06/23 11:52 14 06/06/23 11:52 97.9 F 14 06/06/23 11:52 97 06/06/23 11:52 82 06/06/23 11:52 76 80 L 06/06/23 10:39 111 H 94 06/06/23 10:34 123 H 137/77 94 06/06/23 10:29 102 H 94 06/06/23 10:24 105 H 96 06/06/23 10:20 110 H 136/71 06/06/23 10:19 109 H 94 06/06/23 10:14 108 H 94 06/06/23 10:09 104 H 96 06/06/23 10:04 106 H 130/68 98 06/06/23 09:59 102 H 96 06/06/23 09:54 105 H 97 06/06/23 09:50 94 H 89 L 06/06/23 09:49 89 128/62 96 06/06/23 09:44 92 H 93 06/06/23 09:39 94 H 94 06/06/23 09:34 103 H 133/75 92 06/06/23 09:30 16 06/06/23 09:30 16 06/06/23 09:30 98.1 F 16 06/06/23 09:29 105 H 95 06/06/23 09:24 100 H 91 06/06/23 09:23 102 H 88 L 06/06/23 09:21 99 H 128/72 06/06/23 09:19 100 H 94 06/06/23 09:14 101 H 93 06/06/23 09:09 105 H 97 06/06/23 09:04 105 H 136/71 95 06/06/23 08:59 110 H 97 06/06/23 08:54 106 H 97 06/06/23 08:50 102 H 135/73 06/06/23 08:49 101 H 94 06/06/23 08:44 102 H 94 06/06/23 08:39 108 H 95 06/06/23 08:36 16 06/06/23 08:36 16 06/06/23 08:35 101 H 128/59 L 06/06/23 08:34 108 H 94 06/06/23 08:29 109 H 96 06/06/23 08:24 96 H 92 06/06/23 08:22 94 H 88 L 06/06/23 08:19 96 H 131/67 94 06/06/23 08:17 97 H 89 L 06/06/23 08:14 102 H 95 06/06/23 08:12 102 H 86 L 06/06/23 08:09 97 H 92 06/06/23 08:06 99 H 88 L 06/06/23 08:04 105 H 132/66 95 06/06/23 07:59 99 H 94 06/06/23 07:54 104 H 94 06/06/23 07:49 98 H 138/73 94 06/06/23 07:48 97 H 88 L 06/06/23 07:44 95 H 94 06/06/23 07:41 95 H 88 L 06/06/23 07:39 99 H 96 06/06/23 07:34 108 H 138/80 97 06/06/23 07:30 18 06/06/23 07:29 103 H 96 06/06/23 07:24 100 H 98 06/06/23 07:19 101 H 129/67 94 06/06/23 07:15 98.1 F 06/06/23 07:14 104 H 95 PG Care Time/CCT Total # of Minutes Spent Total Time Spent with Patient: Total time spent is greater than 50% in coordination of care (as documented) at patient's floor/unit and/or counseling patient: Coding Level of Care Code None
[2023-06-06 20:41] LABS: Hematocrit (blood only) 27.8 % (37.0-47.0); Hemoglobin 9.3 g/dl (12.0-16.0); Mean Corpuscular Hemoglobin 27.5 pg (25.0-34.0); Mean Corpuscular Hgb Conc 33.5 g/dL (32.0-36.0); Mean Corpuscular Volume 82.2 fL (80.0-100.0); Mean Platelet Volume 10.8 fL (9.4-12.4); Platelet Count 251 K/uL (130-400); RDW Coefficient of Variation 14.8 % (11.5-14.5); RDW Standard Deviation 43.9 fL (36.4-46.3); Red Blood Count 3.38 M/uL (4.20-5.40); White Blood Count 12.02 K/ul (4.8-10.8)
[2023-06-06] MEDS: DOCUSATE SODIUM 100 MG CAP PO SCH (21:52)
[2023-06-06] MEDS: MONTELUKAST SODIUM 10 MG TABLET PO SCH (21:53)
[2023-06-06] MEDS: KETOROLAC 30 MG/ML VIAL IV PRN (22:45)
[2023-06-07 05:59] LABS: Hematocrit (blood only) 24.6 % (37.0-47.0); Hemoglobin 8.2 g/dl (12.0-16.0); Mean Corpuscular Hemoglobin 27.5 pg (25.0-34.0); Mean Corpuscular Hgb Conc 33.3 g/dL (32.0-36.0); Mean Corpuscular Volume 82.6 fL (80.0-100.0); Mean Platelet Volume 10.2 fL (9.4-12.4); Platelet Count 213 K/uL (130-400); RDW Coefficient of Variation 15.2 % (11.5-14.5); RDW Standard Deviation 45.1 fL (36.4-46.3); Red Blood Count 2.98 M/uL (4.20-5.40); White Blood Count 8.99 K/ul (4.8-10.8)
[2023-06-07] MEDS ORDERED: diphenhydrAMINE Capsule 25 MG CAP PO PRN (06:04)
[2023-06-07] MEDS ORDERED: MEPERIDINE HCL 50 MG/ML CARP IV PRN (06:04)
[2023-06-07] MEDS ORDERED: ZOLPIDEM TARTRATE 5 MG TAB PO PRN (06:04)
[2023-06-07] MEDS ORDERED: PROMETHAZINE HCL 25 MG in SODIUM CHLORIDE 0.9% 50 ML IV PRN (06:04)
[2023-06-07] MEDS ORDERED: diphenhydrAMINE 50 MG/ML VIAL IV PRN (06:04)
[2023-06-07] MEDS: KETOROLAC 30 MG/ML VIAL IV PRN (06:18)
--- NOTE | 2023-06-07 07:18 | Obstetrical Progress Note ---
Date of Service June 07, 2023 Assessment & Plan (1) hemorrhage: Plan: Postoperative day #1 from and significant hemorrhage she required multiple medical treatments for this including Cytotec intra uterine Hemabate oxytocin transaminase acid and a Farzana which has now been removed. The patient's hemoglobin is 8.2 and a pulse rate is around 110 I suspect she may need 1 more unit of blood but instead of rushing to this we will plan on seeing how she does with mobilization today if she feels very lightheaded I discussed that would be very reasonable to give at least 1 more unit of blood. Full case is reviewed with the patient including reasons for hemorrhage likely related to uterine atony at this stage she seems to be doing significantly better we will follow closely patient has pushpa dressing on plan on the 7 days after delivery to be removed Admission and Anticipated Discharge Date Admission Date: June 05, 2023 Subjective Patient is feeling much better bleeding is minimal at this stage hemoglobin is 8.2 she has not gotten out of bed yet Results & Data Vital Signs (Past 12 Hours) Vital Signs Temp Pulse Resp BP Pulse Ox 06/07/23 07:12 108 H 93 06/07/23 07:08 100 H 143/69 H 06/07/23 07:07 106 H 94 06/07/23 07:02 110 H 90 06/07/23 06:59 111 H 89 L 06/07/23 06:57 109 H 92 06/07/23 06:52 109 H 93 06/07/23 06:47 105 H 92 06/07/23 06:42 110 H 91 06/07/23 06:37 110 H 91 06/07/23 06:32 105 H 94 06/07/23 06:27 108 H 93 06/07/23 06:22 108 H 92 06/07/23 06:17 111 H 92 06/07/23 06:12 108 H 91 06/07/23 06:07 110 H 92 06/07/23 06:02 109 H 92 06/07/23 06:00 18 92 06/07/23 05:57 102 H 92 06/07/23 05:52 106 H 92 06/07/23 05:47 110 H 92 06/07/23 05:42 99 H 93 06/07/23 05:39 103 H 86 L 06/07/23 05:37 108 H 91 06/07/23 05:34 104 H 89 L 06/07/23 05:32 100 H 92 06/07/23 05:29 101 H 88 L 06/07/23 05:26 103 H 90 06/07/23 05:21 105 H 92 06/07/23 05:19 105 H 133/70 06/07/23 05:16 112 H 94 06/07/23 05:11 108 H 93 06/07/23 05:06 106 H 93 06/07/23 05:04 18 92 06/07/23 05:01 107 H 92 06/07/23 04:59 105 H 85 L 06/07/23 04:56 110 H 94 06/07/23 04:51 88 L 06/07/23 04:51 100 H 06/07/23 04:51 106 H 92 06/07/23 04:46 96 H 89 L 06/07/23 04:41 100 H 94 06/07/23 04:39 97 H 88 L 06/07/23 04:36 100 H 90 06/07/23 04:34 102 H 88 L 06/07/23 04:31 103 H 94 06/07/23 04:29 102 H 89 L 06/07/23 04:26 99 H 86 L 06/07/23 04:24 102 H 89 L 06/07/23 04:21 103 H 96 06/07/23 04:19 101 H 85 L 06/07/23 04:16 105 H 94 06/07/23 04:11 97 H 94 06/07/23 04:10 99 H 89 L 06/07/23 04:06 98 H 88 L 06/07/23 04:04 101 H 84 L 06/07/23 04:01 105 H 93 06/07/23 04:00 18 93 06/07/23 03:59 96 H 89 L 06/07/23 03:56 102 H 91 06/07/23 03:54 99 H 89 L 06/07/23 03:51 99 H 95 06/07/23 03:48 105 H 89 L 06/07/23 03:46 103 H 92 06/07/23 03:41 107 H 92 06/07/23 03:36 105 H 92 06/07/23 03:31 108 H 92 06/07/23 03:27 112 H 89 L 06/07/23 03:26 114 H 92 06/07/23 03:21 112 H 91 06/07/23 03:16 109 H 92 06/07/23 03:11 101 H 95 06/07/23 03:10 105 H 89 L 06/07/23 03:07 106 H 126/66 06/07/23 03:06 106 H 92 06/07/23 03:02 117 H 89 L 06/07/23 03:01 117 H 92 06/07/23 03:00 18 92 06/07/23 03:00 98.6 F 18 06/07/23 02:56 110 H 92 06/07/23 02:51 117 H 91 06/07/23 02:46 111 H 91 06/07/23 02:41 108 H 93 06/07/23 02:36 117 H 93 06/07/23 02:31 111 H 97 06/07/23 02:26 111 H 92 06/07/23 02:21 118 H 96 06/07/23 02:16 94 H 94 06/07/23 02:11 97 H 88 L 06/07/23 02:06 100 H 95 06/07/23 02:01 96 H 93 06/07/23 02:00 18 95 06/07/23 01:56 98 H 93 06/07/23 01:51 94 H 94 06/07/23 01:46 88 95 06/07/23 01:41 95 H 95 06/07/23 01:36 95 H 94 06/07/23 01:31 92 H 93 06/07/23 01:26 91 H 93 06/07/23 01:21 96 H 95 06/07/23 01:16 94 H 93 06/07/23 01:11 95 H 94 06/07/23 01:06 89 L 06/07/23 01:06 99 H 06/07/23 01:06 97 H 92 06/07/23 01:03 95 H 133/60 06/07/23 01:01 91 H 92 06/07/23 01:00 18 94 06/07/23 00:56 103 H 94 06/07/23 00:51 96 H 91 06/07/23 00:48 106 H 89 L 06/07/23 00:46 98 H 91 06/07/23 00:41 104 H 93 06/07/23 00:37 102 H 88 L 06/07/23 00:36 101 H 90 06/07/23 00:32 101 H 89 L 06/07/23 00:31 101 H 92 06/07/23 00:26 103 H 93 06/07/23 00:25 95 H 88 L 06/07/23 00:21 95 H 93 06/07/23 00:18 98 H 89 L 06/07/23 00:16 95 H 89 L 06/07/23 00:11 93 H 94 06/07/23 00:08 18 95 06/07/23 00:07 93 H 118/57 L 06/07/23 00:06 101 H 94 06/07/23 00:01 91 H 95 06/06/23 23:56 92 06/06/23 23:56 94 H 06/06/23 23:53 86 L 06/06/23 23:53 98 H 06/06/23 23:51 92 06/06/23 23:51 98 H 06/06/23 23:46 92 06/06/23 23:46 95 H 06/06/23 23:41 89 L 06/06/23 23:41 98 H 06/06/23 23:41 90 06/06/23 23:41 99 H 06/06/23 23:36 88 L 06/06/23 23:36 103 H 06/06/23 23:36 90 06/06/23 23:36 99 H 06/06/23 23:31 90 06/06/23 23:31 102 H 06/06/23 23:26 91 06/06/23 23:26 101 H 06/06/23 23:22 88 L 06/06/23 23:22 110 H 06/06/23 23:21 90 06/06/23 23:21 102 H 06/06/23 23:16 90 06/06/23 23:16 106 H 06/06/23 23:15 88 L 06/06/23 23:15 104 H 06/06/23 23:11 92 06/06/23 23:11 99 H 06/06/23 23:08 18 93 06/06/23 23:06 92 06/06/23 23:06 102 H 06/06/23 23:01 92 06/06/23 23:01 94 H 06/06/23 22:56 93 06/06/23 22:56 100 H 06/06/23 22:51 94 06/06/23 22:51 105 H 06/06/23 22:51 121/60 06/06/23 22:46 94 06/06/23 22:46 108 H 06/06/23 22:45 98.2 F 18 06/06/23 22:41 94 06/06/23 22:41 105 H 06/06/23 22:36 94 06/06/23 22:36 100 H 06/06/23 22:31 93 06/06/23 22:31 107 H 06/06/23 22:26 91 06/06/23 22:26 105 H 06/06/23 22:21 93 06/06/23 22:21 114 H 06/06/23 22:16 93 06/06/23 22:16 113 H 06/06/23 22:11 94 06/06/23 22:11 110 H 06/06/23 22:06 92 06/06/23 22:06 111 H 06/06/23 22:01 91 06/06/23 22:01 111 H 06/06/23 22:00 18 94 06/06/23 21:59 88 L 06/06/23 21:59 119 H 06/06/23 21:56 91 06/06/23 21:56 116 H 06/06/23 21:51 91 06/06/23 21:51 113 H 06/06/23 21:46 92 06/06/23 21:46 113 H 06/06/23 21:42 89 L 06/06/23 21:42 106 H 06/06/23 21:41 90 06/06/23 21:41 107 H 06/06/23 21:36 92 06/06/23 21:36 107 H 06/06/23 21:31 92 06/06/23 21:31 109 H 06/06/23 21:26 91 06/06/23 21:26 114 H 06/06/23 21:21 91 06/06/23 21:21 105 H 06/06/23 21:16 92 06/06/23 21:16 106 H 06/06/23 21:11 95 06/06/23 21:11 104 H 06/06/23 21:06 93 06/06/23 21:06 104 H 06/06/23 21:05 105 H 06/06/23 21:05 116/57 L 06/06/23 21:02 89 L 06/06/23 21:02 113 H 06/06/23 21:01 94 06/06/23 21:01 112 H 06/06/23 21:00 18 94 06/06/23 20:56 93 06/06/23 20:56 114 H 06/06/23 20:51 94 06/06/23 20:51 112 H 06/06/23 20:46 97 06/06/23 20:46 97 H 06/06/23 20:41 96 06/06/23 20:41 97 H 06/06/23 20:36 98 06/06/23 20:36 91 H 06/06/23 20:31 97 06/06/23 20:31 95 H 06/06/23 20:30 20 06/06/23 20:26 98 06/06/23 20:26 98 H 06/06/23 20:21 98 06/06/23 20:21 95 H 06/06/23 20:16 95 06/06/23 20:16 95 H 06/06/23 20:11 99 06/06/23 20:11 96 H 06/06/23 20:06 96 06/06/23 20:06 94 H 06/06/23 20:01 94 06/06/23 20:01 101 H 06/06/23 20:00 18 95 06/06/23 19:56 95 06/06/23 19:56 91 H 06/06/23 19:51 95 06/06/23 19:51 97 H 06/06/23 19:46 100 06/06/23 19:46 90 06/06/23 19:41 96 06/06/23 19:41 90 06/06/23 19:36 93 06/06/23 19:36 97 H 06/06/23 19:31 96 06/06/23 19:31 96 H 06/06/23 19:28 85 06/06/23 19:28 133/61 06/06/23 19:26 95 06/06/23 19:26 93 H 06/06/23 19:21 97 06/06/23 19:21 93 H PG Care Time/CCT Total # of Minutes Spent Total Time Spent with Patient: Total time spent is greater than 50% in coordination of care (as documented) at patient's floor/unit and/or counseling patient: Coding Level of Care Code None Diagnoses hemorrhage O72.1
[2023-06-07] MEDS ORDERED: Nursing to Pharmacy Communication SCH (07:30)
[2023-06-07] MEDS: PRENATAL VITAMIN 1 TAB PO SCH (08:13)
[2023-06-07] MEDS: FERROUS SULFATE 325 MG TAB PO SCH (08:13)
[2023-06-07] MEDS ORDERED: PRENATAL VITAMIN 1 TAB PO SCH (09:00)
[2023-06-07] MEDS ORDERED: ASPIRIN 81 MG ECTAB PO SCH (09:00)
[2023-06-07] MEDS: IBUPROFEN 600 MG TAB PO PRN (11:42)
[2023-06-07] MEDS: METOCLOPRAMIDE HCL INJ 5 MG/ML 2 ML VIAL IV STA (13:46)
[2023-06-07 14:26] LABS: Hematocrit (blood only) 26.6 % (37.0-47.0); Hemoglobin 8.7 g/dl (12.0-16.0); Mean Corpuscular Hemoglobin 27.4 pg (25.0-34.0); Mean Corpuscular Hgb Conc 32.7 g/dL (32.0-36.0); Mean Corpuscular Volume 83.6 fL (80.0-100.0); Mean Platelet Volume 10.6 fL (9.4-12.4); Platelet Count 264 K/uL (130-400); RDW Coefficient of Variation 15.3 % (11.5-14.5); RDW Standard Deviation 45.8 fL (36.4-46.3); Red Blood Count 3.18 M/uL (4.20-5.40); White Blood Count 10.73 K/ul (4.8-10.8)
[2023-06-07] MEDS: bisacodyL 5 MG TABEC PO SCH (20:27)
[2023-06-08] MEDS: oxyCODONE/ACETAMINOPHEN 5mg/325mg TAB PO PRN (02:17)
[2023-06-08 06:57] LABS: Basophils # (auto) 0.03 K/uL (0.00-0.20); Basophils % (auto) 0.3 %; Eosinophils # (auto) 0.16 K/uL (0.00-0.50); Eosinophils % (auto) 1.6 %; Hematocrit (blood only) 24.1 % (37.0-47.0); Hemoglobin 8.1 g/dl (12.0-16.0); Immature Granulocytes # (auto) 0.17 K/uL (0.01-0.20); Immature Granulocytes % (auto) 1.7 %; Lymphocytes # (auto) 1.96 K/uL (1.20-3.40); Lymphocytes % (auto) 19.7 %; Mean Corpuscular Hemoglobin 27.3 pg (25.0-34.0); Mean Corpuscular Hgb Conc 33.6 g/dL (32.0-36.0); Mean Corpuscular Volume 81.1 fL (80.0-100.0); Mean Platelet Volume 10.8 fL (9.4-12.4); Monocytes # (auto) 0.57 K/uL (0.11-0.59); Monocytes % (auto) 5.7 %; Neutrophils # (auto) 7.06 K/uL (1.40-6.50); Platelet Count 257 K/uL (130-400); RDW Coefficient of Variation 15.3 % (11.5-14.5); RDW Standard Deviation 44.8 fL (36.4-46.3); Red Blood Count 2.97 M/uL (4.20-5.40); White Blood Count 9.95 K/ul (4.8-10.8)
[2023-06-08] MEDS: ONDANSETRON INJ 2 MG/ML 2 ML VIAL IV PRN (07:38)
[2023-06-08] MEDS ORDERED: FAMOTIDINE 20 MG TAB PO PRN (08:26)
[2023-06-08] MEDS ORDERED: PROMETHAZINE HCL 25 MG TAB PO PRN (08:26)
--- NOTE | 2023-06-08 08:26 | Obstetrical Progress Note ---
Date of Service <Latoya Reyna MD - Last Filed: 06/08/23 08:26> June 08, 2023 Assessment & Plan <Latoya Reyna MD - Last Filed: 06/08/23 08:26> (1) Encounter for assessment: (2) Gestational hypertension: (3) hemorrhage: Plan Patient with the above mentioned history and findings was evaluated at bedside and found awake, alert, oriented in all spheres, afebrile, and in no acute distress. Vital signs showed no fever and blood pressures remained stable with the highest being yesterday soon after moving to pp serrano (iun the 140s), but has remained in 130s and below since then. Her blood type is AB negative (s/op Rhogam yesterday) and today's hemoglobin is 8.1 g/dL. Patient with persistent lightheadedness with standing but no longer tachycardic. Serologies are positive for GBS (tx intrapartum) and rubella immune. Overall, patient is doing well clinically. Therefore, will encourage ambulation as tolerated and will resume regular diet. Will manage nausea with zofran and may consider promethazine for breakthrough nausea. May also consider pepcid. Will continue management of anemia with iron supplementation since symptoms have improved and bleeding is now more consistent with expected pp lochia. Continue routine pp course. All questions were answered. <Roman Coffey MD - Last Filed: 06/08/23 08:36> (1) Encounter for assessment: (2) Gestational hypertension: (3) hemorrhage: Subjective <Latoya Reyna MD - Last Filed: 06/08/23 08:26> Elizabeth is a 33 y/o female who is POD #2 following pLTCS at 39 2/7 weeks. She reports feeling well overall this morning. Refers mild abdominal cramping & 4/10 pain well managed on analgesics. Voiding spontaneously. Tolerating meals overnight and able to ambulate some. Does refers having nausea. Has passed gas but no bm. Bleeding has remained within the expected range for lochia and has shown some improvement this morning. Still feeling some lightheadedness when she stands but notes improvement compared to yesterday. Currently . Constitutional: no fever, no chills or no sweats Denies shortness of breath or difficulty breathing. Cardiovascular: no chest pain or no palpitations Breast: no breast pain Genitourinary (female): no dysuria Neurologic: no headache(s) Denies changes in vision. Physical Exam <Latoya Reyna MD - Last Filed: 06/08/23 08:26> General: Alert. Oriented to person, time, and place. Afebrile. No acute distress. Cardiac: Regular rate and rhythm, no murmurs/rubs/gallops. Respiratory: Clear to auscultation bilaterally a/p, no wheezes/rales/rhonchi. No increased work of breathing. Symmetrical chest rise. No respiratory distress. Abdomen: Soft, nontender, nondistended. Bowel sounds present. Low transverse surgical scar covered with [place] dressing which is c/d/i Uterus: Uterine fundus firm, mildly tender, and palpable below umbilicus. Lower Extremities: Bilateral LE swelling +1. No deep calf pain. Loretta's negative bilaterally. Psych: Euthymic affect. Mood and affect congruence. Regular speech rate and content. Results & Data <Latoya Reyna MD - Last Filed: 06/08/23 08:26> Vital Signs (Past 12 Hours) Vital Signs Temp Pulse Resp BP O2 Del Method 06/08/23 07:43 36.9 C 93 H 16 160/99 H Room Air 06/07/23 23:07 36.4 C L 92 H 14 137/86 Room Air 06/07/23 23:00 36.4 C L 92 H 14 137/86 Room Air 06/07/23 20:20 36.7 C 92 H 16 138/79 Room Air Supervising Physician <Roman Coffey MD - Last Filed: 06/08/23 08:36> Co-Signing Physician Notes Patient seen with resident and agree with the above findings and plan. Routine care. Elevated blood pressure this morning but blood pressures have been otherwise. Will continue to monitor. Denies any anemia symptoms.
[2023-06-08] MEDS: BUTORPHANOL TARTRATE 2 MG/ML VIAL ONE (09:28)
[2023-06-08 10:55] LABS: Albumin Level 3.1 gm/dl (3.4-5.0); BUN Creatinine Ratio 10.7 (10-20); Bilirubin,Total 0.4 mg/dl (0.2-1.0); Calcium 8.4 mg/dl (8.6-10.3); Creatinine Clr Calc Pharmacy 209.3 ml/min; Est GFR (Non-African American) 123.4 ml/min; Globulin 3.1 gm/dl (2.5-4.0); Potassium 2.9 mmol/L (3.5-5.1); Total Protein 6.2 gm/dl (6.0-8.3)
[2023-06-08] MEDS ORDERED: bisacodyL 10 MG SUPP PR PRN (11:43)
--- NOTE | 2023-06-09 06:54 | Obstetrical Progress Note ---
Date of Service June 09, 2023 Assessment & Plan (1) Encounter for assessment: PPD#3 from [facility] with significant PPH, s/p 2u RBC. Also gHTN which previously demonstrated severe features, s/p magnesium which was stopped due to atony and severe PPH. Patient has had mostly mild-HTN pressures during her recover, with many BP that were normal. This morning denies RUQ pain, edema or vision changes. Labs yesterday morning reassuring. Does c/o DAVE today which she states has been present x3 days, though I was not previously informed, and per RN this was not a consistent prior complaint. DAVE is holocranial and mild but annoying per patient. Could be tension DAVE due to stress/fatigue/sleep deprivation, and gHTN that is mild and resolving with normal labs. Could be that these things go together and truly still gHTN with severe features, but that seems less likely given normal labs and lack of other s/sx. Will start Labetalol 100mg PO BID, looking to get her out of HTN range and will also see if this impacts her headache. I am reluctant to resume magnesium right now. This is both due to her significant issues with atony/PPH, and because I favor the possibility that her remaining/resolving HTN is not actually the cause of her DAVE. Will watch closely. Subjective Ambulation: ambulating normally Voiding: no voiding problems Passing Gas:: Yes Diet Tolerance:: regular diet Lochia:: Small Feeding Type:: breast feeding Physical Exam Constitutional WD/WN, vitals as above Eyes PERRL, conjunctivae normal, anicteric sclerae Neck normal visual inspection Respiratory normal respiratory effort and able to speak in complete sentences; no respiratory distress and no labored breathing Cardiovascular Rate/Rhythm: regular rate and regular rhythm Extremities: no edema Chest (Breasts) Chest: normal inspection of chest Gastrointestinal (Abdomen) Inspection/Auscultation: abdomen normal to inspection Soft, postgravid [place] in place c/d/i Psychiatric A+Ox3, euthymic affect Genitourinary OB Exam Abdomen: + fundal height Fundus: + firm and + relation to umbilicus (fundus just below umbilicus); not tender Results & Data Vital Signs (Past 12 Hours) Vital Signs Temp Pulse Resp BP Pulse Ox O2 Del Method 06/09/23 04:15 97.9 F 85 18 145/84 H 97 Room Air 06/08/23 23:15 98.1 F 78 18 141/90 H 97 Room Air 06/08/23 19:45 98.1 F 98 H 18 135/82 97 Room Air
[2023-06-09] MEDS: LABETALOL HCL 100 MG TAB PO SCH (08:51)
--- NOTE | 2023-06-13 08:11 | Discharge Summary ---
Date of Service June 13, 2023 Admission HPI Per Admitting Provider Elizabeth is a 32 y/o female with PMHx of PCOS, Migraines, and Obesity who is currently at IUP 39 2/7 WGA with an RAYMOND 06/11/23 as determined by US who is here for IOL. Her was a result of IVF/ICSI, and so this in combination with patient's history of obesity, [facility] was recommending delivery by 39 wga. Patient had a Geronimo balloon placed yesterday, which fell out at 12-1am this morning. (+) movement (-) contractions (-) fluid loss (-) bloody show External FHT and external uterine monitors used * Category 1 tracing * Moderate FHT variability. Had regular appointments since 1st trimester. OB Labs: Blood Type AB Negative 11/16/22 Antibody Screen NEGATIVE 03/22/23 Hemoglobin 11.8 g/dl (12.0-16.0) L 03/22/23 Hematocrit 36.8 % (37.0-47.0) L 03/22/23 Mean Corpuscular Volume 79.6 fL (80.0-100.0) L 11/16/22 Platelet Count 343 K/uL (130-400) 11/16/22 Rubella IgG Antibody Immune (Immune) 11/16/22 Rapid Plasma Reagin Nonreactive (Nonreactive) 11/16/22 Hepatitis B Surface Antigen. NON-REACTIVE (NON-REACTIVE) 11/16/22 Hepatitis C Antibody (EIA) NON-REACTIVE (NON-REACTIVE) 11/16/22 HIV (1&2) Ag and Ab Confirmation NON-REACTIVE (NON-REACTIVE) 11/16/22 Glucose 1 Hour 50 gm Load 121 mg/dl (70-130) 03/22/23 Maternal Serum Alpha Fetoprotein 25.8 ng/mL 12/28/22 OB Optional Labs: Chlamydia trachomatis RNA Not Detected (NotDetected) 11/16/22 Neisseria gonorrhoeae RNA Not Detected (NotDetected) 11/16/22 Thyroid Stimulating Hormone (TSH) 1.720 uIu/ml (0.300-4.500) 05/22/20 Alpha Fetoprotein Triple Screen SEE NOTE 12/28/22 Discharge Data Consultations 06/05/23 07:58 Consult Anesthesiology Stat Procedures Performed Operation Date: 06/06/23 15:10 Actual Procedures p Labor Delivery Dilation and Curettage - Daniella Howard MD, [facility] Course (1) Encounter for assessment: PPD#3 from [facility] with significant PPH, s/p 2u RBC. Also gHTN which previously demonstrated severe features, s/p magnesium which was stopped due to atony and severe PPH. Patient has had mostly mild-HTN pressures during her recover, with many BP that were normal. This morning denies RUQ pain, edema or vision changes. Labs yesterday morning reassuring. Does c/o DAVE today which she states has been present x3 days, though I was not previously informed, and per RN this was not a consistent prior complaint. DAVE is holocranial and mild but annoying per patient. Could be tension DAVE due to stress/fatigue/sleep deprivation, and gHTN that is mild and resolving with normal labs. Could be that these things go together and truly still gHTN with severe features, but that seems less likely given normal labs and lack of other s/sx. Will start Labetalol 100mg PO BID, looking to get her out of HTN range and will also see if this impacts her headache. I am relu ctant to resume magnesium right now. This is both due to her significant issues with atony/PPH, and because I favor the possibility that her remaining/resolving HTN is not actually the cause of her DAVE. Will watch closely. Supervising Physician Co-Signing Physician Notes Patient seen with resident and agree with the above findings and plan. Routine care. Elevated blood pressure this morning but blood pressures have been otherwise. Will continue to monitor. Denies any anemia symptoms. Coding Level of Care Code None Diagnoses Encounter for assessment Z39.2
== END 2023-06-09 13:05 | disposition home or self-care (01) | DRG 787 ==
LOC: 4S1 07:36 → 4E2 06-07 09:12